=== PATIENT | male | born 1940 | race Caucasian/White ===

== ENCOUNTER 2017-08-30 17:20 | Emergency (ER) | payer MEDICARE, BC, OTHER ==
[2017-08-30] MEDS ORDERED: Sodium Chloride 0.9% 10 ML Syringe FLUSH PRN (17:29)
[2017-08-30] MEDS ORDERED: Sodium Chloride 0.9% 2.5 ML Syringe FLUSH PRN (17:29)
[2017-08-30] MEDS ORDERED: Morphine 2 MG/ML Syringe IVPUSH ONE (17:32)
[2017-08-30] MEDS ORDERED: Sodium Chloride 0.9% 1,000 ML IV ONE (17:32)
[2017-08-30] MEDS ORDERED: Ondansetron 4 MG/2 ML SDV IVPUSH ONE (17:32)
--- NOTE | 2017-08-30 17:33 | EDM.PDOC ---
ED HPI GENERAL MEDICAL PROBLEM - General Chief Complaint: Lower Extremity Injury/Pain Stated Complaint: UNK Time Seen by Provider: 08/30/17 17:33 Source of Information: Reports: Patient, EMS, EMS Notes Reviewed History Limitations: Reports: No Limitations - History of Present Illness INITIAL COMMENTS - FREE TEXT/NARRATIVE: HISTORY AND PHYSICAL: [] 76-year-old male presents with EMS due to a fall from a ladder History of Present Illness: []Patient remembers being upon the latter does not know if he slipped or if he got dizzy and ended up falling hit onto his left hip. He does relate having previous injury to his right hip with fracture and fixation He had cardiac stents placed and is on Plavix At this time denies hitting his head Denies any illnesses or other points of injury Review of Systems: As per history of present illness and below otherwise all systems reviewed and negative. Past medical history: As per history of present illness and as reviewed below otherwise noncontributory. Surgical history: As per history of present illness and as reviewed below otherwise noncontributory. Social history: No reported history of drug or alcohol abuse. Family history: As per history of present illness and as reviewed below otherwise noncontributory. Physical exam: Alert and oriented gentleman answering questions appropriately. Speaking in full sentences without any shortness of breath. HEENT: Atraumatic, normocehpalic, pupils reactive, negative for conjunctival pallor or scleral icterus, mucous membranes moist, throat clear, neck supple, nontender, trachea midline. Lungs: Clear to auscultation, breath sounds equal bilaterally, chest non tender. Heart: S1S2, regular, negative for clicks, rubs, or JVD. Abdomen: Soft, nondistended, nontender. Negative for masses or hepatossplenmegaly. Negative for costovertebral tenderness. Pelvis: Exquisite tenderness to left hip. Genitourinary: Deferred. Rectal: Deferred Extremities: Atraumatic, negative for cords or calf pain. Ecchymosis noted to left elbow range of motion is present radial pulse intact deformities present Neurovascular unremarkable. Neuro: Awake, alert, oriented. Cranial nerves II through XII unremarkable. Cerebellum unremarkable. Motor and sensory unremarkable throughout. Exam nonfocal. Head CT is negative no loss of consciousness during questions appropriately and in full sentences Discussed case with the family the patient and with Dr. Cullen. Surgeon from [facility] in [facility] he has accepted this patient for care. Transfer papers have been completed Diagnostics: [CBC CMP INR PT head CT CT pelvis x-ray left hip] Therapeutics: Morphine Dilaudid Zofran] Impression: []Acetabular fracture Area ramus fracture Plan: [Transfer to [facility] in [place]] Definitive disposition and diagnosis as appropriate pending reevaluation and review of above. Onset: Today, Sudden Duration: Hour(s): Location: Reports: Lower Extremity, Left Quality: Reports: Throbbing Severity: Moderate Left Hip Pain Score (Numeric/FACES): 10 - Related Data Allergies Allergy/AdvReac Type Severity Reaction Status Date / Time No Known Allergies Allergy Verified 11/16/14 14:26 Home Meds: Home Meds Aclidinium [place] [Tudorza Pressair] 1 inh IH ASDIRECTED PRN 08/30/17 [History] Aspirin 81 mg PO BRK 08/30/17 [History] Clopidogrel Bisulfate [Clopidogrel] 1 tab PO DAILY 08/30/17 [History] Hydrocodone/Acetaminophen [Hydrocodon-Acetaminophen 5-325] 1 tab PO ASDIRECTED PRN 08/30/17 [History] Lisinopril [Lisinopril] 1 tab PO DAILY 08/30/17 [History] Metoprolol Tartrate [Metoprolol Tartrate] 1 tab PO DAILY 08/30/17 [History] atorvaSTATin Calcium [Atorvastatin Calcium] 1 tab PO DAILY 08/30/17 [History] Past Medical History Cardiovascular History: Reports: Hypertension Respiratory History: Reports: COPD Hematologic History: Reports: Other (See Below) Other Hematologic History: Easy bruising/bleeding - Past Surgical History Musculoskeletal Surgical History: Reports: Other (See Below) Review of Systems - Review of Systems Review Of Systems: ROS reveals no pertinent complaints other than HPI. ED EXAM, GENERAL - Physical Exam Exam: See Below (see dictation) EKG INTERPRETATION EKG Date: 08/30/17 Rhythm: NSR Course - Vital Signs Last Recorded V/S: Last Vital Signs Temp 36.4 C 08/30/17 20:30 Pulse 88 08/30/17 21:21 Resp 18 08/30/17 21:21 BP 118/70 08/30/17 21:21 Pulse Ox 97 08/30/17 21:21 - Orders/Labs/Meds Orders: Active Orders 24 hr Category Date Time Status Cardiac Monitoring [RC] . DIRECTED Care 08/30/17 17:29 Active EKG Documentation Completion [RC] STAT Care 08/30/17 17:29 Active Oxygen Therapy [RC] ASDIRECTED Care 08/30/17 17:29 Active Chest 1V Frontal [CR] Stat Exams 08/30/17 17:29 Taken Head wo Cont [CT] Stat Exams 08/30/17 17:31 Taken Hip Min 4V Lt [CR] Stat Exams 08/30/17 17:31 Taken Pelvis w Cont [CT] Stat Exams 08/30/17 18:56 Stop Req Pelvis wo Cont [CT] Stat Exams 08/30/17 19:04 Taken Sodium Chloride 0.9% [Saline Flush] Med 08/30/17 17:29 Active 10 ml FLUSH ASDIRECTED PRN Sodium Chloride 0.9% [Saline Flush] Med 08/30/17 17:29 Active 2.5 ml FLUSH ASDIRECTED PRN Saline Lock Insert [OM.PC] Stat Oth 08/30/17 17:29 Ordered Medication Orders Sodium Chloride (Saline Flush) 10 ml FLUSH ASDIRECTED PRN PRN Reason: Keep Vein Open Sodium Chloride (Saline Flush) 2.5 ml FLUSH ASDIRECTED PRN PRN Reason: Keep Vein Open Labs: Laboratory Tests 08/30/17 08/30/17 08/30/17 Range/Units 17:43 17:43 17:43 WBC 20.11 H (4.0-11.0) K/uL RBC 4.39 L (4.50-5.90) M/uL Hgb 13.7 (13.0-17.0) g/dL Hct 40.0 (38.0-50.0) % MCV 91.1 (80.0-98.0) fL MCH 31.2 (27.0-32.0) pg MCHC 34.3 (31.0-37.0) g/dL RDW Std Deviation 46.4 (28.0-62.0) fl RDW Coeff of Kavitha 14 (11.0-15.0) % Plt Count 274 (150-400) K/uL MPV 9.10 (7.40-12.00) fL Neut % (Auto) 84.7 H (48.0-80.0) % Lymph % (Auto) 8.3 L (16.0-40.0) % Morgan % (Auto) 5.1 (0.0-15.0) % Eos % (Auto) 1.5 (0.0-7.0) % Baso % (Auto) 0.4 (0.0-1.5) % Neut # (Auto) 17.0 H (1.4-5.7) K/uL Lymph # (Auto) 1.7 (0.6-2.4) K/uL Morgan # (Auto) 1.0 H (0.0-0.8) K/uL Eos # (Auto) 0.3 (0.0-0.7) K/uL Baso # (Auto) 0.1 (0.0-0.1) K/uL Nucleated RBC % 0.0 /100WBC Nucleated RBCs # 0 K/uL INR 1.04 (0.86-1.11) Sodium 135 L (136-146) mmol/L Potassium 4.0 (3.5-5.1) mmol/L Chloride 102 (98-110) mmol/L Carbon Dioxide 23 (21-31) mmol/L BUN 23 (6.0-23.0) mg/dL Creatinine 1.0 (0.6-1.5) mg/dL Est Cr Clr Drug Dosing 72.13 mL/min Estimated GFR (MDRD) > 60.0 ml/min Glucose 116 H (60-110) mg/dL Calcium 8.7 L (8.8-10.8) mg/dL Total Bilirubin 0.4 (0.1-1.5) mg/dL AST 21 (5-40) IU/L ALT 25 (8-54) IU/L Alkaline Phosphatase 71 (40-150) Troponin I < 0.10 (0.0-0.29) NG/ML Total Protein 7.2 (6.0-8.0) g/dL Albumin 3.8 (3.4-4.8) g/dL Globulin 3.4 (2.0-3.5) g/dL Albumin/Globulin Ratio 1.1 L (1.3-2.8) Amylase 49 (10-90) U/L Lipase 16 (7-80) U/L Meds: Medications Generic Name Dose Route Start Last Admin Trade Name Freq PRN Reason Stop Dose Admin Sodium Chloride 10 ml 08/30/17 17:29 Saline Flush FLUSH ASDIRECTED PRN Keep Vein Open Sodium Chloride 2.5 ml 08/30/17 17:29 Saline Flush FLUSH ASDIRECTED PRN Keep Vein Open Discontinued Medications Generic Name Dose Route Start Last Admin Trade Name [place]ion PRN Reason Stop Dose Admin Fentanyl Confirm 08/30/17 18:10 08/30/17 18:36 Sublimaze Administered 08/30/17 18:11 Not Given Dose 100 mcg .ROUTE .STK-MED ONE Fentanyl 50 mcg 08/30/17 18:23 08/30/17 18:37 Sublimaze IVPUSH 08/30/17 18:24 50 mcg ONETIME ONE Administration Hydromorphone HCl 1 mg 08/30/17 19:38 08/30/17 19:44 Dilaudid IVPUSH 08/30/17 19:39 1 mg ONETIME ONE Administration Hydromorphone HCl 1 mg 08/30/17 20:58 08/30/17 21:18 Dilaudid IVPUSH 08/30/17 20:59 1 mg ONETIME ONE Administration Sodium Chloride 1,000 mls @ 999 mls/hr 08/30/17 17:32 08/30/17 17:51 Normal Saline IV 08/30/17 18:32 999 mls/hr STAT ONE Administration Morphine Sulfate 2 mg 08/30/17 17:32 08/30/17 18:00 Morphine IVPUSH 08/30/17 17:33 Not Given ONETIME ONE Morphine Sulfate 4 mg 08/30/17 17:37 08/30/17 17:48 Morphine IVPUSH 08/30/17 17:38 4 mg ONETIME ONE Administration Ondansetron HCl 4 mg 08/30/17 17:32 08/30/17 17:48 Zofran IVPUSH 08/30/17 17:33 4 mg ONETIME ONE Administration Departure - Departure Time of Disposition: 21:27 Disposition: DC/Tfer to Acute Hospital 02 Condition: Fair Clinical Impression: Closed fracture of acetabulum, hip - Discharge Information Forms: ED Department Discharge - My Orders Last 24 Hours: My Active Orders 08/30/17 17:29 Cardiac Monitoring [RC] . DIRECTED EKG Documentation Completion [RC] STAT Oxygen Therapy [RC] ASDIRECTED Chest 1V Frontal [CR] Stat Sodium Chloride 0.9% [Saline Flush] 10 ml FLUSH ASDIRECTED PRN Sodium Chloride 0.9% [Saline Flush] 2.5 ml FLUSH ASDIRECTED PRN Saline Lock Insert [OM.PC] Stat 08/30/17 17:31 Head wo Cont [CT] Stat Hip Min 4V Lt [CR] Stat 08/30/17 18:56 Pelvis w Cont [CT] Stat 08/30/17 19:04 Pelvis wo Cont [CT] Stat - Assessment/Plan Last 24 Hours: My Active Orders 08/30/17 17:29 Cardiac Monitoring [RC] . DIRECTED EKG Documentation Completion [RC] STAT Oxygen Therapy [RC] ASDIRECTED Chest 1V Frontal [CR] Stat Sodium Chloride 0.9% [Saline Flush] 10 ml FLUSH ASDIRECTED PRN Sodium Chloride 0.9% [Saline Flush] 2.5 ml FLUSH ASDIRECTED PRN Saline Lock Insert [OM.PC] Stat 08/30/17 17:31 Head wo Cont [CT] Stat Hip Min 4V Lt [CR] Stat 08/30/17 18:56 Pelvis w Cont [CT] Stat 08/30/17 19:04 Pelvis wo Cont [CT] Stat
[2017-08-30] MEDS ORDERED: Morphine 4 MG/ML Syringe IVPUSH ONE (17:37)
[2017-08-30] MEDS ORDERED: fentaNYL 100 MCG/2 ML SDV ONE (18:10)
[2017-08-30 18:21] LABS: CHLORIDE,CL 102 mmol/L (98-110); SODIUM,NA 135 mmol/L (136-146)
[2017-08-30] MEDS ORDERED: fentaNYL 100 MCG/2 ML SDV IVPUSH ONE (18:23)
[2017-08-30] MEDS ORDERED: HYDROmorphone 1 MG/ML Syringe IVPUSH ONE ×2 (19:38→20:58)
[2017-08-30 22:32] VITALS: BP 125/63
--- NOTE | 2017-09-02 14:17 | CR ---
EXAM DATE: 08/30/17 PATIENT'S AGE: 76 Patient: NUZHAT CASILLAS Facility: [place], [place] Site . Site : 1940 Study: XRay Chest [id number] 7:07:16 PM Ordering Physician: Doctor Munoz Final Report: Fall off 3ft ladder Portable chest. Findings : Normal cardiac mediastinal silhouette. Strandy atelectasis. No pneumothorax. No fractures seen. Dictated by Lauren Owen MD @ Aug 30 2017 8:02PM (Electronic Signature) Report Signed by Proxy. NKECHI
--- NOTE | 2017-09-02 14:18 | CR ---
EXAM DATE: 08/30/17 PATIENT'S AGE: 76 Patient: NUZHAT CASILLAS Facility: [place], [place] Site . Site : 1940 Study: XRay Hip Left [id number] 7:08:17 PM Ordering Physician: Doctor Munoz Final Report: INDICATION: fall off 3ft ladder INDICATION: Fall 3 foot ladder TECHNIQUE: Four views of the pelvis and left hip COMPARISON: None FINDINGS: Bones: Displaced fracture involving the wall of the left acetabulum with medial displacement of the left femoral head. CT scan recommended to further characterize. Fracture left inferior pubic ramus. Internal fixation or proximal right femur. Soft tissues: Bilateral iliac vascular stents. IMPRESSION: Displaced fracture medial left acetabulum with displacement of the femoral head medially. Left inferior pubic ramus fracture. CT scan recommended to better characterize. Dictated by Jamie Santiago MD @ 08/30/2017 8:13:00 PM Dictated by: Jamie Santiago MD @ 08/30/2017 20:14:16 (Electronic Signature) Report Signed by Proxy. [facility]
--- NOTE | 2017-09-02 14:19 | CT ---
EXAM DATE: 08/30/17 PATIENT'S AGE: 76 Patient: NUZHAT CASILLAS Facility: [place], [place] Site . Site : 1940 Study: CT Head [id number] 7:19:51 PM Ordering Physician: Doctor Munoz Final Report: INDICATION: Fall from ladder. TECHNIQUE: Noncontrast CT of the brain was performed with images acquired from skull base to vertex. COMPARISON: None available. FINDINGS: There is no acute intracranial hemorrhage. Ventricles are of normal size and morphology. No mass effect or midline shift is present. The márquez-white matter differentiation is normal. The visualized portions of the orbits are normal. The visualized portions of the mastoids are normal. The visualized portions of the paranasal sinuses are normal. No fractures are identified. IMPRESSION: No acute intracranial abnormality Please note that all CT scans at this facility use dose modulation, iterative reconstruction, and/or weight-based dosing when appropriate to reduce radiation dose to as low as reasonably achievable. Dictated by Esteban Regan MD @ Aug 30 2017 8:18PM (Electronic Signature) Report Signed by Proxy. [facility]
--- NOTE | 2017-09-02 14:21 | CT ---
EXAM DATE: 08/30/17 PATIENT'S AGE: 76 Patient: NUZHAT CASILLAS Facility: [place], [place] Site . Site : 1940 Study: CT Pelvis [id number]/[id number]/2017 7:21:09 PM Ordering Physician: Doctor Munoz Final Report: Indication: Trauma, acute left hip pain Technique: CT scan pelvis without intravenous contrast Comparison: None Findings: Fracture of the anterior column involving the superior pubic ramus at the junction with the acetabulum. Fractures involving the left iliac crest. Comminuted fracture involving the roof and medial wall of the acetabulum with displacement of the left femoral head medially. Fractures involving the left inferior pubic ramus. A sizeable hematoma is noted involving the left iliacus muscle belly, left psoas muscle and left obturator internus and externus muscle bellies with displacement of the bladder to the right. Extraperitoneal hematoma present in the space of Retzius. Comminuted displaced fracture of the posterior acetabulum. The SI joints and symphysis pubis are intact. The right hip joint is intact. Internal fixation hardware noted involving the right proximal femur. Small presacral hematoma. Iliac artery vascular stents noted. Impression: Comminuted fracture involving the left anterior column including comminuted displaced fractures of the left superior pubic ramus adjacent to the anterior and medial carroll of the left acetabulum as well as the roof and left inferior pubic ramus. Fracture extends into the left iliac crest. The left femoral head is displaced medially. Comminuted displaced fracture of the posterior acetabulum extending to the articular surface. Small adjacent posterior hematoma noted. Hematomas involving the left iliacus, psoas and left obturator internus and externus muscle bellies. Displacement of the bladder to the right. The bladder appears intact, however if bladder rupture is clinically suspected, then cystogram or CT cystogram recommended. If active bleeding is clinically suspected, then CT scan with intravenous contrast with arterial, venous and delayed phases recommended. Space of Retzius hematoma and small presacral hematoma. Dictated by Jamie Santiago MD @ 08/30/2017 8:48:10 PM Dictated by: Jamie Santiago MD @ 08/30/2017 20:48:27 (Electronic Signature) Report Signed by Proxy. MTDD
== END 2017-08-30 21:50 ==
LOC: MW.ED 17:20
DX: S32.592A Other specified fracture of left pubis, initial encounter for closed fracture (principal); S32.402A Unspecified fracture of left acetabulum, initial encounter for closed fracture; S72.052A Unspecified fracture of head of left femur, initial encounter for closed fracture; S32.302A Unspecified fracture of left ilium, initial encounter for closed fracture; Z79.899 Other long term (current) drug therapy; I10 Essential (primary) hypertension; J44.9 Chronic obstructive pulmonary disease, unspecified; W11.XXXA Fall on and from ladder, initial encounter
CPT/HCPCS: 36415; 70450; 71010; 72192; 73503; 80053; 82150; 83690; 84484; 85025; 85610; 93005; 96361; 96374; 96375; 96376; 99285; J1170; J2270; J2405; J3010; J7040; 99283

== ENCOUNTER 2020-08-07 00:05 | Inpatient (IN) | payer MEDICARE, BC ==
[2020-08-07] MEDS ORDERED: Morphine 4 MG/ML Syringe ONE (00:11)
[2020-08-07] MEDS ORDERED: Morphine 4 MG/ML Syringe IVPUSH ONE ×3 (00:11→01:57)
[2020-08-07] MEDS ORDERED: Ondansetron 4 MG/2 ML SDV IVPUSH ONE (00:15)
--- NOTE | 2020-08-07 00:16 | EDM.PDOC ---
ED HPI GENERAL MEDICAL PROBLEM - General Stated Complaint: FALL Time Seen by Provider: 08/07/20 00:08 History Limitations: Reports: No Limitations - History of Present Illness INITIAL COMMENTS - FREE TEXT/NARRATIVE: 79-year-old male on Plavix who had left hip surgery at the [facility] on July 09 presents with nausea and left hip pain after falling out of bed. The patient reports that he woke up and felt incredibly dizzy and the next thing he know he was on the ground. He reports significant nausea but denies headache or neck pain he denies back pain he endorses moderate pain in the left hip. He states that there was not any open wound associated with his hip that he was aware of prior to the fall. He denies pain in the abdomen. He denies active vertigo. He denies any chest pain shortness of breath palpitations. Left Hip Pain Score (Numeric/FACES): 8 - Related Data Allergies Allergy/AdvReac Type Severity Reaction Status Date / Time No Known Allergies Allergy Verified 08/07/20 01:23 Home Meds: Home Meds Aspirin 81 mg PO BRK 08/30/17 [History] Clopidogrel Bisulfate [Clopidogrel] 1 tab PO DAILY 08/30/17 [History] Lisinopril 1 tab PO DAILY 08/30/17 [History] Metoprolol Tartrate 1 tab PO DAILY 08/30/17 [History] atorvaSTATin Calcium [Atorvastatin Calcium] 1 tab PO DAILY 08/30/17 [History] Furosemide 08/07/20 [History] oxyCODONE HCl [Oxycodone HCl] 08/07/20 [History] Past Medical History HEENT History: Reports: Allergic Rhinitis Cardiovascular History: Reports: Hypertension Respiratory History: Reports: COPD Gastrointestinal History: Reports: None Genitourinary History: Reports: None Musculoskeletal History: Reports: None Neurological History: Reports: None Psychiatric History: Reports: None Endocrine/Metabolic History: Reports: None Hematologic History: Reports: Other (See Below) Other Hematologic History: Easy bruising/bleeding Immunologic History: Reports: None Oncologic (Cancer) History: Reports: None Dermatologic History: Reports: None - Infectious Disease History Infectious Disease History: Reports: Chicken Pox - Past Surgical History Other Musculoskeletal Surgeries/Procedures:: Back surgery Social & Family History - Family History Family Medical History: No Pertinent Family History - Caffeine Use Caffeine Use: Reports: Coffee ED ROS GENERAL - Review of Systems Review Of Systems: See Below Free Text/Narrative/Comment: General: No fever. Skin: No rash. Eyes: No vision problems. ENT: No sore throat. Neck: No neck stiffness. Respiratory: No shortness of breath. Cardiac: No chest pain. Gastrointestinal: Per HPI Urinary: No dysuria. Musculoskeletal: Per HPI Neurologic: Per HPI ED EXAM, GENERAL - Physical Exam Exam: See Below Free Text/Narrative:: General Appearance: No acute distress, appears comfortable Skin: No rash HEENT: Normocephalic/atraumatic, sclera anicteric, mucous membranes moist Neck: Normal range of motion, no midline tenderness Chest and Lungs: Bilateral breath sounds, clear to auscultation Cardiovascular: Regular rate and rhythm, no murmur Abdomen: Soft, non-tender Back: No midline tenderness no step-offs Musculoskeletal: The left hip lateral incision appears to be well-healed and clean dry and intact until you get to the most inferior 4 cm which has dehisced there is minimal blood clot visible under it there is no active bleeding Neurologic: Awake, alert, no obvious deficits, moving all extremities Psychiatric: Appropriate, cooperative #1 Interpretation EKG Date: 08/07/20 Time: 01:05 EKG Interpretation Comments: EKG demonstrates normal sinus rhythm with a rate of 86 QTC borderline at 490 no acute ischemia normal axis Course - Vital Signs Last Recorded V/S: Last Vital Signs Temp 99.3 F 08/07/20 00:05 Pulse 82 08/07/20 00:20 Resp 20 08/07/20 00:20 BP 153/72 H 08/07/20 00:20 Pulse Ox 97 08/07/20 00:20 - Orders/Labs/Meds Orders: Active Orders 24 hr Category Date Time Status CREATININE,URINE RAND [URCHEM] Stat Lab 08/07/20 01:09 Ordered SODIUM,URINE RANDOM [URCHEM] Stat Lab 08/07/20 01:09 Ordered UA W/MICROSCOPIC [URIN] Stat Lab 08/07/20 01:09 Ordered Labs: Laboratory Tests 08/07/20 08/07/20 Range/Units 00:08 00:08 WBC 7.05 (4.0-11.0) K/uL RBC 3.00 L (4.50-5.90) M/uL Hgb 9.3 L (13.0-17.0) g/dL Hct 25.7 L (38.0-50.0) % MCV 85.7 (80.0-98.0) fL MCH 31.0 (27.0-32.0) pg MCHC 36.2 (31.0-37.0) g/dL RDW Std Deviation 41.5 (28.0-62.0) fl RDW Coeff of Kavitha 14 (11.0-15.0) % Plt Count 285 (150-400) K/uL MPV 8.80 (7.40-12.00) fL Neut % (Auto) 79.1 (48.0-80.0) % Lymph % (Auto) 10.9 L (16.0-40.0) % [place]row % (Auto) 9.5 (0.0-15.0) % Eos % (Auto) 0.4 (0.0-7.0) % Baso % (Auto) 0.1 (0.0-1.5) % Neut # (Auto) 5.6 (1.4-5.7) K/uL Lymph # (Auto) 0.8 (0.6-2.4) K/uL [place]row # (Auto) 0.7 (0.0-0.8) K/uL Eos # (Auto) 0.0 (0.0-0.7) K/uL Baso # (Auto) 0.0 (0.0-0.1) K/uL Sodium 107 L* (136-148) mmol/L Potassium 3.8 (3.5-5.1) mmol/L Chloride 74 L (98-107) mmol/L Carbon Dioxide 24.7 (21.0-32.0) mmol/L BUN 11 (7.0-18.0) mg/dL Creatinine 1.0 (0.8-1.3) mg/dL Est Cr Clr Drug Dosing TNP Estimated GFR (MDRD) > 60.0 ml/min Glucose 103 (74-106) mg/dL Calcium 8.5 (8.5-10.1) mg/dL Total Bilirubin 0.9 (0.2-1.0) mg/dL AST 39 H (15-37) IU/L ALT 25 (14-63) IU/L Alkaline Phosphatase 137 H (46-116) U/L Troponin I < 0.050 (0.000-0.056) ng/mL Total Protein 6.9 (6.4-8.2) g/dL Albumin 3.3 L (3.4-5.0) g/dL Globulin 3.6 (2.6-4.0) g/dL Albumin/Globulin Ratio 0.9 (0.9-1.6) Meds: Medications Discontinued Medications Generic Name Dose Route Start Last Admin Trade Name Freq PRN Reason Stop Dose Admin Metoclopramide HCl 5 mg 08/07/20 00:56 08/07/20 01:01 Reglan IVPUSH 08/07/20 00:57 5 mg ONETIME ONE Administration Morphine Sulfate 4 mg 08/07/20 00:11 08/07/20 00:58 Morphine IVPUSH 08/07/20 00:12 4 mg ONETIME ONE Administration Morphine Sulfate Confirm 08/07/20 00:11 08/07/20 01:03 Morphine Administered 08/07/20 00:12 Not Given Dose 4 mg .ROUTE .STK-MED ONE Morphine Sulfate 4 mg 08/07/20 00:12 08/07/20 01:05 Morphine IVPUSH 08/07/20 00:13 4 mg ONETIME ONE Administration Ondansetron HCl 4 mg 08/07/20 00:15 08/07/20 00:58 Zofran IVPUSH 08/07/20 00:16 4 mg ONETIME ONE Administration Departure - Departure Time of Disposition: 01:43 Disposition: Admitted As Inpatient 66 Condition: Good Clinical Impression: Hyponatremia - Discharge Information *PRESCRIPTION DRUG MONITORING PROGRAM REVIEWED*: Not Applicable *COPY OF PRESCRIPTION DRUG MONITORING REPORT IN PATIENT SANDRA: Not Applicable Sepsis Event Note (ED) - Focused Exam Vital Signs: Vital Signs Temp Pulse Resp BP Pulse Ox 08/07/20 00:35 83 20 142/53 H 98 08/07/20 00:20 82 20 153/72 H 97 08/07/20 00:05 99.3 F 86 20 166/75 H 97 - My Orders Last 24 Hours: My Active Orders 08/07/20 01:09 CREATININE,URINE RAND [URCHEM] Stat SODIUM,URINE RANDOM [URCHEM] Stat UA W/MICROSCOPIC [URIN] Stat - Assessment/Plan Last 24 Hours: My Active Orders 08/07/20 01:09 CREATININE,URINE RAND [URCHEM] Stat SODIUM,URINE RANDOM [URCHEM] Stat UA W/MICROSCOPIC [URIN] Stat Assessment:: 79-year-old male presenting with falling out of bed after waking up dizzy from a traumatic standpoint he seems relatively unharmed with the exception of the left hip wound dehiscence x-rays pending and will try to discuss with relevant orthopedics. Regarding the dizziness CT scan of the brain is pending EKG troponin as well relevant blood work and will reassess patient given Zofran and morphine for symptom control. 0055: On tertiary survey patient also has some contusion around the right auricle he has a 5 mm V-shaped laceration just inside that is well approximated. Appropriate wound care provided. On repeat interview the patient states that that inferior portion of his incision has actually been open and has been healing slowly. Given this no indication for urgent or emergent orthopedic consultation no indication certainly for closure. The wound itself otherwise is clean dry and intact without signs of infection. Patient has no dizziness or other complaints at this time beyond left hip pain. Formal imaging results pending. 0145: Imaging results without signs of acute traumatic injury. Labs demonstrate a profound hyponatremia. Given this patient require admission patient discussed in full with Dr. Martini. Likely acute so we will treat more aggressively 1 L normal saline bolus ordered patient has no altered mental status at this time so we will manage on the floor for now order placed for inpatient bed on telemetry.
[2020-08-07] MEDS ORDERED: Metoclopramide 10 MG/2 ML SDV IVPUSH ONE (00:56)
[2020-08-07 01:05] LABS: BLOOD UREA NITROGEN,BUN 11 mg/dL (7.0-18.0); CARBON DIOXIDE,CO2 24.7 mmol/L (21.0-32.0); CHLORIDE,CL 74 mmol/L (98-107); GLUCOSE RANDOM 103 mg/dL (74-106); POTASSIUM,K 3.8 mmol/L (3.5-5.1)
[2020-08-07 01:07] LABS: SODIUM,NA 107 mmol/L (136-148)
--- NOTE | 2020-08-07 01:13 | CT ---
INDICATION: Fall from bed TECHNIQUE: CT head without contrast. COMPARISON: None. FINDINGS: CSF spaces: Within normal limits for age. Brain parenchyma: Cerebral atrophy with moderate low density in the deep white matter without appreciable mass effect. No intracranial hemorrhage. Skull base and calvarium: Mucosal thickening within the paranasal sinuses. The visualized orbits are grossly unremarkable. No skull fractures. IMPRESSION: 1. No calvarial fracture or intracranial bleed. 2. Cerebral atrophy with nonspecific white matter disease, likely microangiopathy. Please note that all CT scans at this facility use dose modulation, iterative reconstruction, and/or weight-based dosing when appropriate to reduce radiation dose to as low as reasonably achievable. Dictated by Nabor Jones MD @ Aug 07 2020 1:07AM Signed by Dr. Nabor Jones @ Aug 07 2020 1:11AM
--- NOTE | 2020-08-07 01:15 | CR ---
Indication: Fall out of bed Technique: Chest 1 view Comparison: Chest x-ray 08/30/2017 Findings/Impression: Cardiovascular and mediastinum: Normal heart size with atherosclerotic calcification. Lungs and pleural space: No pleural effusion or pneumothorax. Mild pulmonary cephalization with some bronchial wall thickening in the perihilar regions which can be seen in reactive airways disease or bronchitis. Bones and soft tissues: No acute findings. Dictated by Nabor Jones MD @ Aug 07 2020 1:14AM Signed by Dr. Nabor Jones @ Aug 07 2020 1:15AM
--- NOTE | 2020-08-07 01:15 | CR ---
Indication: Fall out of bed, left hip replacement earlier this month. Technique: Three views Comparison: None Findings: Bones: Old intertrochanteric fracture on the right with dynamic hip screw. Some cortical thickening along the medial wall of the acetabulum bilaterally without clear displaced fracture in these views. Joint spaces: Status post left total hip replacement with some ossification along the lateral margin of the joint space. No dislocation or hardware fracture. Soft tissues: Lateral soft tissue swelling with subcutaneous air. Dictated by Nabor Jones MD @ Aug 07 2020 1:12AM Signed by Dr. Nabor Jones @ Aug 07 2020 1:14AM
--- NOTE | 2020-08-07 01:17 | CR ---
Indication: Left forearm pain after fall Technique: Two views Comparison: None Findings: Bones: Alignment is normal. No fractures or bone lesions. Joint spaces: Unremarkable. Soft tissues: Mild soft tissue swelling. Dictated by Nabor Jones MD @ Aug 07 2020 1:15AM Signed by Dr. Nabor Jones @ Aug 07 2020 1:16AM
[2020-08-07] MEDS ORDERED: Sodium Chloride 0.9% 1,000 ML IV SCH ×2 (01:45→04:45)
[2020-08-07] MEDS ORDERED: Morphine 2 MG/ML SYRINGE ONE (02:03)
[2020-08-07] MEDS ORDERED: Ondansetron 4 MG/2 ML SDV IVPUSH PRN (04:35)
[2020-08-07 04:39] LABS: BLOOD UREA NITROGEN,BUN 12 mg/dL (7.0-18.0); CARBON DIOXIDE,CO2 23.2 mmol/L (21.0-32.0); CHLORIDE,CL 78 mmol/L (98-107); GLUCOSE RANDOM 104 mg/dL (74-106); POTASSIUM,K 3.5 mmol/L (3.5-5.1)
[2020-08-07 04:41] LABS: SODIUM,NA 110 mmol/L (136-148)
[2020-08-07] MEDS: Heparin Sodium 5,000 Units/ML Vial SUBCUT SCH ×2 (05:13→15:59)
--- NOTE | 2020-08-07 07:56 | PCM.HP.2 ---
H&P History of Present Illness - General Date of Service: 08/07/20 Admit Problem/Dx: Admission Diagnosis/Problem Admission Diagnosis/Problem Hyponatremia Source of Information: Patient History Limitations: Reports: No Limitations - History of Present Illness Initial Comments - Free Text/Narative: This 79-year-old male with PMH of hypertension CAD COPD and recent left hip wright rgery in beginning of July presented to the ER last evening with complaints of a fall nausea and extreme dizziness. He reports that he woke up in middle of the night and had significant dizziness the next thing he knew he was on the ground. He reports he may have hit his head. He does take Plavix and aspirin secondary to CAD. He reports that he has been feeling well up until this point. Eating and drinking well. No alcohol use. No nausea vomiting or diarrhea. No chest pain or shortness of breath. No fevers or chills. Denies any abdominal pain reports mild constipation which is not abnormal for him. Reports he has been taking oxycodone at home for pain to his hip since surgery. He denies any alcohol use no recreational drug use and no smoking. He denies any history of congestive heart failure. He also denies any history of significant electrolyte abnormalities in the past. In the ER hemoglobin noted to be 9.3 hematocrit 25.7 no leukocytosis. On BMP significant hyponatremia noted at 107, chloride 74, BUN 11, creatinine 1.0. Chest x-ray was negative head CT negative for any intracranial bleed. Hip x-ray showed no acute changes forearm x-ray showed mild swelling no obvious injuries. EKG normal sinus rhythm no acute ST/T wave changes no suggestions of acute isch emia. Troponin negative. Covid swab negative in the ER he was given 1 L normal saline. Vital signs were stable. He will be admitted inpatient due to hyponatremia. Left Hip Pain Score (Numeric/FACES): 7 - Related Data Allergies/Adverse Reactions: Allergies Allergy/AdvReac Type Severity Reaction Status Date / Time No Known Allergies Allergy Verified 08/07/20 09:49 Home Medications: Home Meds Aspirin 81 mg PO BRK 08/30/17 [History] Clopidogrel Bisulfate [Clopidogrel] 75 mg PO DAILY 08/30/17 [History] Lisinopril 10 mg PO DAILY 08/30/17 [History] Metoprolol Tartrate 25 mg PO BID 08/30/17 [History] atorvaSTATin Calcium [Atorvastatin Calcium] 40 mg PO DAILY 08/30/17 [History] Furosemide 40 mg PO DAILY PRN 08/07/20 [History] hydroCHLOROthiazide [Hydrochlorothiazide] 12.5 mg PO DAILY 08/07/20 [History] oxyCODONE HCl [Oxycodone HCl] 10 mg PO QID PRN 08/07/20 [History] Past Medical History HEENT History: Reports: Allergic Rhinitis Cardiovascular History: Reports: CAD, Hypertension Respiratory History: Reports: COPD Gastrointestinal History: Reports: None Genitourinary History: Reports: None Musculoskeletal History: Reports: None Neurological History: Reports: None Psychiatric History: Reports: None Endocrine/Metabolic History: Reports: None Hematologic History: Reports: Other (See Below) Other Hematologic History: Easy bruising/bleeding Immunologic History: Reports: None Oncologic (Cancer) History: Reports: None Dermatologic History: Reports: None - Infectious Disease History Infectious Disease History: Reports: Chicken Pox - Past Surgical History HEENT Surgical History: Reports: None Neurological Surgical History: Reports: Laminectomy Musculoskeletal Surgical History: Reports: Other (See Below) Other Musculoskeletal Surgeries/Procedures:: Back surgery, both hips replaced, left hip 07/09/20 Social & Family History - Family History Family Medical History: No Pertinent Family History - Tobacco Use Tobacco Use Status *Q: Never Tobacco User - Caffeine Use Caffeine Use: Reports: Coffee - Recreational Drug Use Recreational Drug Use: No H&P Review of Systems - Review of Systems: Review Of Systems: See Below General: Reports: Malaise, Weakness, Fatigue. Denies: Fever, Chills HEENT: Reports: Vertigo. Denies: Headaches, Sinus Congestion, Visual Changes Pulmonary: Denies: Shortness of Breath Cardiovascular: Reports: No Symptoms. Denies: Chest Pain, Orthopnea, Edema Gastrointestinal: Reports: No Symptoms. Denies: Abdominal Pain, Decreased Appetite, Nausea, Vomiting Genitourinary: Reports: No Symptoms. Denies: Dysuria, Frequency, Burning Musculoskeletal: Reports: Muscle Pain (Bilateral lower legs) Skin: Reports: Wound (Draining wound to left hip) Psychiatric: Reports: No Symptoms Neurological: Reports: Confusion Hematologic/Lymphatic: Reports: No Symptoms Immunologic: Reports: No Symptoms Exam - Exam Exam: See Below - Vital Signs Vital Signs: Last Vital Signs Temp 97.6 F 08/07/20 03:47 Pulse 84 08/07/20 03:47 Resp 18 08/07/20 03:47 BP 153/63 H 08/07/20 03:47 Pulse Ox 95 08/07/20 03:47 Weight: 81.647 kg - Exam Quality Assessment: Urinary Catheter (Will place Savage catheter for strict I's and O's), DVT Prophylaxis. No: Supplemental Oxygen General: Other (Mild intermittent confusion noted) HEENT: Conjunctiva Clear Lungs: Clear to Auscultation, Normal Respiratory Effort Cardiovascular: Regular Rate, Regular Rhythm GI/Abdominal Exam: Normal Bowel Sounds, Soft, Non-Tender Extremities: Normal Inspection, Normal Range of Motion, Non-Tender, Pedal Edema (+2 pitting edema bilateral lower legs) Skin: Wound (Left hip wound dehiscence noted to the distal end of incision. Bloody drainage noted), Other (Bruising to right ear no significant pain no bloody drainage.) Neuro Extensive - Mental Status: Alert, Oriented x3. No: Normal Mood/Affect (Confusion intermittently) Neuro Extensive - Motor, Sensory, Reflexes: CN II-XII Intact, Normal Gait Psychiatric: Alert, Normal Affect, Normal Mood - Patient Data Lab Results Last 24 hrs: Laboratory Results - last 24 hr 08/07/20 08/07/20 08/07/20 Range/Units 00:08 00:08 01:15 WBC 7.05 (4.0-11.0) K/uL RBC 3.00 L (4.50-5.90) M/uL Hgb 9.3 L (13.0-17.0) g/dL Hct 25.7 L (38.0-50.0) % MCV 85.7 (80.0-98.0) fL MCH 31.0 (27.0-32.0) pg MCHC 36.2 (31.0-37.0) g/dL RDW Std Deviation 41.5 (28.0-62.0) fl RDW Coeff of Kavitha 14 (11.0-15.0) % Plt Count 285 (150-400) K/uL MPV 8.80 (7.40-12.00) fL Neut % (Auto) 79.1 (48.0-80.0) % Lymph % (Auto) 10.9 L (16.0-40.0) % [place] % (Auto) 9.5 (0.0-15.0) % Eos % (Auto) 0.4 (0.0-7.0) % Baso % (Auto) 0.1 (0.0-1.5) % Neut # (Auto) 5.6 (1.4-5.7) K/uL Lymph # (Auto) 0.8 (0.6-2.4) K/uL [place] # (Auto) 0.7 (0.0-0.8) K/uL Eos # (Auto) 0.0 (0.0-0.7) K/uL Baso # (Auto) 0.0 (0.0-0.1) K/uL Sodium 107 L* (136-148) mmol/L Potassium 3.8 (3.5-5.1) mmol/L Chloride 74 L (98-107) mmol/L Carbon Dioxide 24.7 (21.0-32.0) mmol/L BUN 11 (7.0-18.0) mg/dL Creatinine 1.0 (0.8-1.3) mg/dL Est Cr Clr Drug Dosing TNP Estimated GFR (MDRD) > 60.0 ml/min Glucose 103 (74-106) mg/dL Calcium 8.5 (8.5-10.1) mg/dL Total Bilirubin 0.9 (0.2-1.0) mg/dL AST 39 H (15-37) IU/L ALT 25 (14-63) IU/L Alkaline Phosphatase 137 H (46-116) U/L Troponin I < 0.050 (0.000-0.056) ng/mL Total Protein 6.9 (6.4-8.2) g/dL Albumin 3.3 L (3.4-5.0) g/dL Globulin 3.6 (2.6-4.0) g/dL Albumin/Globulin Ratio 0.9 (0.9-1.6) SARS-CoV-2 RNA (KARIS) NEGATIVE (NEGATIVE) 08/07/20 Range/Units 04:20 WBC (4.0-11.0) K/uL RBC (4.50-5.90) M/uL Hgb (13.0-17.0) g/dL Hct (38.0-50.0) % MCV (80.0-98.0) fL MCH (27.0-32.0) pg MCHC (31.0-37.0) g/dL RDW Std Deviation (28.0-62.0) fl RDW Coeff of Kavitha (11.0-15.0) % Plt Count (150-400) K/uL MPV (7.40-12.00) fL Neut % (Auto) (48.0-80.0) % Lymph % (Auto) (16.0-40.0) % [place] % (Auto) (0.0-15.0) % Eos % (Auto) (0.0-7.0) % Baso % (Auto) (0.0-1.5) % Neut # (Auto) (1.4-5.7) K/uL Lymph # (Auto) (0.6-2.4) K/uL [place] # (Auto) (0.0-0.8) K/uL Eos # (Auto) (0.0-0.7) K/uL Baso # (Auto) (0.0-0.1) K/uL Sodium 110 L* (136-148) mmol/L Potassium 3.5 (3.5-5.1) mmol/L Chloride 78 L (98-107) mmol/L Carbon Dioxide 23.2 (21.0-32.0) mmol/L BUN 12 (7.0-18.0) mg/dL Creatinine 1.0 (0.8-1.3) mg/dL Est Cr Clr Drug Dosing 68.80 Estimated GFR (MDRD) > 60.0 ml/min Glucose 104 (74-106) mg/dL Calcium 8.0 L (8.5-10.1) mg/dL Total Bilirubin (0.2-1.0) mg/dL AST (15-37) IU/L ALT (14-63) IU/L Alkaline Phosphatase (46-116) U/L Troponin I (0.000-0.056) ng/mL Total Protein (6.4-8.2) g/dL Albumin (3.4-5.0) g/dL Globulin (2.6-4.0) g/dL Albumin/Globulin Ratio (0.9-1.6) SARS-CoV-2 RNA (KARIS) (NEGATIVE) Result Diagrams: 08/07/20 00:08 08/07/20 12:45 Sepsis Event Note - Evaluation Sepsis Screening Result: No Definite Risk - Focused Exam Vital Signs: Vital Signs Temp Pulse Resp BP Pulse Ox 08/07/20 03:47 97.6 F 84 18 153/63 H 95 08/07/20 03:40 97.8 F 80 18 134/74 94 L 08/07/20 03:00 96 132/48 L 94 L 08/07/20 02:30 97 18 152/59 H 92 L 08/07/20 02:00 91 104/41 L 95 08/07/20 01:45 18 153/76 H 95 08/07/20 01:20 86 151/71 H 93 L 08/07/20 00:50 99.2 F 86 18 141/70 H 95 08/07/20 00:35 83 20 142/53 H 98 08/07/20 00:20 82 20 153/72 H 97 08/07/20 00:05 99.3 F 86 20 166/75 H 97 - Problem List (1) Hyponatremia SNOMED Code(s): 29541823 ICD Code: E87.1 - HYPO-OSMOLALITY AND HYPONATREMIA Status: Acute Current Visit: Yes (2) Hypertension SNOMED Code(s): 10719994 ICD Code: I10 - ESSENTIAL (PRIMARY) HYPERTENSION Status: Acute Current Visit: Yes (3) COPD (chronic obstructive pulmonary disease) SNOMED Code(s): 03878405 ICD Code: J44.9 - CHRONIC OBSTRUCTIVE PULMONARY DISEASE, UNSPECIFIED Status: Acute Current Visit: Yes (4) Fall SNOMED Code(s): 9197665, 013544576 ICD Code: W19.XXXA - UNSPECIFIED FALL, INITIAL ENCOUNTER Status: Acute Current Visit: Yes (5) Dizziness SNOMED Code(s): 671475936, 228807640 ICD Code: R42 - DIZZINESS AND GIDDINESS Status: Acute Current Visit: Yes (6) Wound dehiscence, surgical SNOMED Code(s): 889011307 ICD Code: T81.31XA - DISRUPTION OF EXTERNAL OPERATION (SURGICAL) WOUND, NEC, INIT Status: Acute Current Visit: Yes Qualifiers: Encounter type: initial encounter Qualified Code(s): T81.31XA - Disruption of external operation (surgical) wound, not elsewhere classified, initial encounter Problem List Initiated/Reviewed/Updated: Yes Orders Last 24hrs: Active Orders 24 hr Category Date Time Status Patient Status [ADT] Routine ADT 08/07/20 02:06 Active Neuro Check [RC] Q2HR Care 08/07/20 04:16 Active Oxygen Therapy [RC] ASDIRECTED Care 08/07/20 04:16 Active Telemetry Monitoring [Cardiac Monitoring] [RC] Q8H Care 08/07/20 02:40 Active Up With Assistance [RC] ASDIRECTED Care 08/07/20 04:16 Active Vital Signs [RC] Q4H Care 08/07/20 04:16 Active Regular Diet [DIET] Diet 08/07/20 Breakfast Active BASIC METABOLIC PANEL,BMP [CHEM] Routine Lab 08/07/20 08:30 Ordered BASIC METABOLIC PANEL,BMP [CHEM] Routine Lab 08/07/20 12:30 Ordered CREATININE,URINE RAND [URCHEM] Stat Lab 08/07/20 01:09 Ordered SODIUM,URINE RANDOM [URCHEM] Stat Lab 08/07/20 01:09 Ordered UA W/MICROSCOPIC [URIN] Stat Lab 08/07/20 01:09 Ordered Heparin Sodium Med 08/07/20 04:45 Active 5,000 units SUBCUT Q12H Ondansetron [Zofran] Med 08/07/20 04:35 Active 4 mg IVPUSH Q4H PRN Sodium Chloride 0.9% [Normal Saline] 1,000 ml Med 08/07/20 01:45 Active IV ASDIRECTED Sodium Chloride 0.9% [Normal Saline] 1,000 ml Med 08/07/20 04:45 Active IV ASDIRECTED Medication Orders Heparin Sodium (Porcine) (Heparin Sodium) 5,000 units SUBCUT Q12H [facility] Last Admin: 08/07/20 05:13 Dose: 5,000 units Documented by: AMIRA Sodium Chloride (Normal Saline) 1,000 mls @ 999 mls/hr IV ASDIRECTED SARAH Last Admin: 08/07/20 02:07 Dose: 999 mls/hr Documented by: JAMESON Sodium Chloride (Normal Saline) 1,000 mls @ 150 mls/hr IV ASDIRECTED SARAH Last Admin: 08/07/20 05:13 Dose: 150 mls/hr Documented by: AMIRA Ondansetron HCl (Zofran) 4 mg IVPUSH Q4H PRN PRN Reason: Nausea/Vomiting Last Admin: 08/07/20 05:13 Dose: 4 mg Documented by: AMIRA Assessment/Plan Comment:: This 79-year-old male admitted with significant hyponatremia 1. Hyponatremia -Repeat sodium this morning 110. -Urine electrolytes still pending, will place Savage to obtain these and strict I's and O's -Concern for peripheral edema suggestive of possible CHF.-We will stop IV fluids now. Give Lasix 40 mg IV. -Transfer to ICU for closer monitoring -Continue to repeat BMPs every 4 hours until sodium stable -Goal of correction to be 113 in the next 24 hours -Appreciate eICU's monitoring and recommendations 2. left hip wound dehiscence -We will consult orthopedics due to distal part of incision opening with some bloody drainage. 3. Peripheral edema -History of CAD no current echo on chart. -We will obtain echo -BNP elevated -Strict I's and O's, daily weight, fluid restriction 1800 mls low-sodium diet 4. HTN/CAD -Continue lisinopril and metoprolol along with Plavix and aspirin 5. COPD -Monitor -Appears stable currently DuoNebs as needed dyspnea VTE prophylaxis: Heparin CODE STATUS: Full code Dispo: 2 to 3 days pending improvement Attempt to call no answer on home phone and voicemail box full on cell phone.
[2020-08-07] MEDS: Lisinopril 10 MG Tab PO SCH (08:57)
[2020-08-07] MEDS: Metoprolol Tartrate 25 MG Tab PO SCH ×2 (08:59→20:24)
[2020-08-07] MEDS: Clopidogrel 75 MG Tab PO SCH (09:00)
[2020-08-07] MEDS: oxyCODONE 5 MG Tab PO PRN ×2 (09:00→15:03)
[2020-08-07 09:11] LABS: BLOOD UREA NITROGEN,BUN 13 mg/dL (7.0-18.0); CARBON DIOXIDE,CO2 20.4 mmol/L (21.0-32.0); CHLORIDE,CL 78 mmol/L (98-107); GLUCOSE RANDOM 102 mg/dL (74-106); POTASSIUM,K 3.7 mmol/L (3.5-5.1)
[2020-08-07 09:42] LABS: SODIUM,NA 110 mmol/L (136-148)
[2020-08-07] MEDS ORDERED: Furosemide 40 MG/4 ML VIAL IVPUSH ONE (10:03)
--- NOTE | 2020-08-07 12:30 | PCM.CONS ---
H&P History of Present Illness - General Date of Service: 08/07/20 Admit Problem/Dx: Admission Diagnosis/Problem Admission Diagnosis/Problem Hyponatremia Source of Information: Patient, Provider, RN History Limitations: Reports: Altered Mental Status - History of Present Illness Onset of Symptoms: Reports: Sudden Symptom Onset Date: 08/07/20 Duration of Symptoms: Reports: Hour(s): Location: Reports: Lower Extremity, Left Quality: Reports: Ache, Throbbing Severity: Moderate Improves with: Reports: Immobilization Worsens with: Reports: Movement Associated Symptoms: Reports: Malaise, Weakness Left Hip Pain Score (Numeric/FACES): 6 - Related Data Allergies/Adverse Reactions: Allergies Allergy/AdvReac Type Severity Reaction Status Date / Time No Known Allergies Allergy Verified 08/07/20 09:49 Home Medications: Home Meds Aspirin 81 mg PO BRK 08/30/17 [History] Clopidogrel Bisulfate [Clopidogrel] 75 mg PO DAILY 08/30/17 [History] Lisinopril 10 mg PO DAILY 08/30/17 [History] Metoprolol Tartrate 25 mg PO BID 08/30/17 [History] atorvaSTATin Calcium [Atorvastatin Calcium] 40 mg PO DAILY 08/30/17 [History] Furosemide 40 mg PO DAILY PRN 08/07/20 [History] hydroCHLOROthiazide [Hydrochlorothiazide] 12.5 mg PO DAILY 08/07/20 [History] oxyCODONE HCl [Oxycodone HCl] 10 mg PO QID PRN 08/07/20 [History] Past Medical History HEENT History: Reports: Allergic Rhinitis Cardiovascular History: Reports: Hypertension Respiratory History: Reports: COPD Gastrointestinal History: Reports: None Genitourinary History: Reports: None Musculoskeletal History: Reports: None Neurological History: Reports: None Psychiatric History: Reports: None Endocrine/Metabolic History: Reports: None Hematologic History: Reports: Other (See Below) Other Hematologic History: Easy bruising/bleeding Immunologic History: Reports: None Oncologic (Cancer) History: Reports: None Dermatologic History: Reports: None - Infectious Disease History Infectious Disease History: Reports: Chicken Pox - Past Surgical History HEENT Surgical History: Reports: None Neurological Surgical History: Reports: Laminectomy Musculoskeletal Surgical History: Reports: Other (See Below) Other Musculoskeletal Surgeries/Procedures:: Back surgery, both hips replaced, left hip 07/09/20 Social & Family History - Family History Family Medical History: No Pertinent Family History - Tobacco Use Tobacco Use Status *Q: Never Tobacco User Second Hand Smoke Exposure: No - Caffeine Use Caffeine Use: Reports: Coffee - Recreational Drug Use Recreational Drug Use: No H&P Review of Systems - Review of Systems: Review Of Systems: See Below General: Reports: No Symptoms HEENT: Reports: No Symptoms Pulmonary: Reports: No Symptoms Cardiovascular: Reports: No Symptoms Gastrointestinal: Reports: No Symptoms Genitourinary: Reports: No Symptoms Musculoskeletal: Reports: Leg Pain, Joint Pain, Joint Swelling, Muscle Pain Skin: Reports: Wound Psychiatric: Reports: Confusion Neurological: Reports: Weakness Hematologic/Lymphatic: Reports: No Symptoms Immunologic: Reports: No Symptoms Exam - Exam Exam: See Below - Vital Signs Vital Signs: Last Vital Signs Temp 37.1 C 08/07/20 11:13 Pulse 79 08/07/20 11:13 Resp 22 H 08/07/20 11:13 BP 171/78 H 08/07/20 11:13 Pulse Ox 93 L 08/07/20 11:13 Weight: 81.647 kg - Exam General: Alert, Oriented, Cooperative, Moderate Distress HEENT: Hearing Intact, Mucosa Moist & [place], Pupils Equal, Pupils Reactive Neck: Supple, Trachea Midline Lungs: Normal Respiratory Effort GI/Abdominal Exam: No Distention Extremities: Leg Pain, Limited Range of Motion Peripheral Pulses: 2+: Dorsalis Pedis (L) Skin: Wound Neurological: Cranial Nerves Intact Neuro Extensive - Mental Status: Alert, Normal Mood/Affect Psychiatric: Alert, Normal Mood Physical Exam Comments:: Distal 5 cm of would appears open to subcutaneous tissues but not deep to iliotibial band. no erythema. appropriate post op swelling. distal motor and sensory exam intact - Patient Data Lab Results Last 24 hrs: Laboratory Results - last 24 hr 08/07/20 08/07/20 08/07/20 Range/Units 00:08 00:08 01:15 WBC 7.05 (4.0-11.0) K/uL RBC 3.00 L (4.50-5.90) M/uL Hgb 9.3 L (13.0-17.0) g/dL Hct 25.7 L (38.0-50.0) % MCV 85.7 (80.0-98.0) fL MCH 31.0 (27.0-32.0) pg MCHC 36.2 (31.0-37.0) g/dL RDW Std Deviation 41.5 (28.0-62.0) fl RDW Coeff of Kavitha 14 (11.0-15.0) % Plt Count 285 (150-400) K/uL MPV 8.80 (7.40-12.00) fL Neut % (Auto) 79.1 (48.0-80.0) % Lymph % (Auto) 10.9 L (16.0-40.0) % [place] % (Auto) 9.5 (0.0-15.0) % Eos % (Auto) 0.4 (0.0-7.0) % Baso % (Auto) 0.1 (0.0-1.5) % Neut # (Auto) 5.6 (1.4-5.7) K/uL Lymph # (Auto) 0.8 (0.6-2.4) K/uL [place] # (Auto) 0.7 (0.0-0.8) K/uL Eos # (Auto) 0.0 (0.0-0.7) K/uL Baso # (Auto) 0.0 (0.0-0.1) K/uL Sodium 107 L* (136-148) mmol/L Potassium 3.8 (3.5-5.1) mmol/L Chloride 74 L (98-107) mmol/L Carbon Dioxide 24.7 (21.0-32.0) mmol/L BUN 11 (7.0-18.0) mg/dL Creatinine 1.0 (0.8-1.3) mg/dL Est Cr Clr Drug Dosing TNP Estimated GFR (MDRD) > 60.0 ml/min Glucose 103 (74-106) mg/dL Calcium 8.5 (8.5-10.1) mg/dL Total Bilirubin 0.9 (0.2-1.0) mg/dL AST 39 H (15-37) IU/L ALT 25 (14-63) IU/L Alkaline Phosphatase 137 H (46-116) U/L Troponin I < 0.050 (0.000-0.056) ng/mL B-Natriuretic Peptide (<100) PG/ML Total Protein 6.9 (6.4-8.2) g/dL Albumin 3.3 L (3.4-5.0) g/dL Globulin 3.6 (2.6-4.0) g/dL Albumin/Globulin Ratio 0.9 (0.9-1.6) SARS-CoV-2 RNA (KARIS) NEGATIVE (NEGATIVE) 08/07/20 08/07/20 08/07/20 Range/Units 04:20 04:20 08:35 WBC (4.0-11.0) K/uL RBC (4.50-5.90) M/uL Hgb (13.0-17.0) g/dL Hct (38.0-50.0) % MCV (80.0-98.0) fL MCH (27.0-32.0) pg MCHC (31.0-37.0) g/dL RDW Std Deviation (28.0-62.0) fl RDW Coeff of Kavitha (11.0-15.0) % Plt Count (150-400) K/uL MPV (7.40-12.00) fL Neut % (Auto) (48.0-80.0) % Lymph % (Auto) (16.0-40.0) % [place] % (Auto) (0.0-15.0) % Eos % (Auto) (0.0-7.0) % Baso % (Auto) (0.0-1.5) % Neut # (Auto) (1.4-5.7) K/uL Lymph # (Auto) (0.6-2.4) K/uL [place] # (Auto) (0.0-0.8) K/uL Eos # (Auto) (0.0-0.7) K/uL Baso # (Auto) (0.0-0.1) K/uL Sodium 110 L* 110 L* (136-148) mmol/L Potassium 3.5 3.7 (3.5-5.1) mmol/L Chloride 78 L 78 L (98-107) mmol/L Carbon Dioxide 23.2 20.4 L (21.0-32.0) mmol/L BUN 12 13 (7.0-18.0) mg/dL Creatinine 1.0 1.1 (0.8-1.3) mg/dL Est Cr Clr Drug Dosing 68.80 62.55 Estimated GFR (MDRD) > 60.0 > 60.0 ml/min Glucose 104 102 (74-106) mg/dL Calcium 8.0 L 8.4 L (8.5-10.1) mg/dL Total Bilirubin (0.2-1.0) mg/dL AST (15-37) IU/L ALT (14-63) IU/L Alkaline Phosphatase (46-116) U/L Troponin I (0.000-0.056) ng/mL B-Natriuretic Peptide 289 H (<100) PG/ML Total Protein (6.4-8.2) g/dL Albumin (3.4-5.0) g/dL Globulin (2.6-4.0) g/dL Albumin/Globulin Ratio (0.9-1.6) SARS-CoV-2 RNA (KARIS) (NEGATIVE) Result Diagrams: 08/07/20 00:08 08/07/20 08:35 Sepsis Event Note - Evaluation Sepsis Screening Result: No Definite Risk - Focused Exam Vital Signs: Vital Signs Temp Pulse Pulse Resp BP BP Pulse Ox 08/07/20 11:13 37.1 C 79 22 H 171/78 H 93 L 08/07/20 08:59 97 160/87 H 08/07/20 08:57 160/87 H 08/07/20 08:00 36.7 C 105 H 17 165/71 H 93 L 08/07/20 04:16 08/07/20 03:47 36.4 C 84 18 153/63 H 95 08/07/20 03:40 36.6 C 80 18 134/74 94 L 08/07/20 03:00 96 132/48 L 94 L 08/07/20 02:30 97 18 152/59 H 92 L 08/07/20 02:00 91 104/41 L 95 08/07/20 01:45 18 153/76 H 95 08/07/20 01:20 86 151/71 H 93 L 08/07/20 00:50 37.3 C 86 18 141/70 H 95 08/07/20 00:35 83 20 142/53 H 98 Pulse Ox 08/07/20 11:13 08/07/20 08:59 08/07/20 08:57 08/07/20 08:00 08/07/20 04:16 95 08/07/20 03:47 08/07/20 03:40 08/07/20 03:00 08/07/20 02:30 08/07/20 02:00 08/07/20 01:45 08/07/20 01:20 08/07/20 00:50 08/07/20 00:35 Consult PN Assessment/Plan POD#: other Procedures: Procedures ALANINE AMINO (ALT) (SGPT) (05/16/19) ASSAY OF AMYLASE (08/30/17) ASSAY OF CREATININE (05/16/19) ASSAY OF LIPASE (08/30/17) ASSAY OF TROPONIN QUANT (08/30/17) ASSAY OF VANCOMYCIN (05/16/19) CHEST X-RAY 1 VIEW FRONTAL (08/30/17) COLLECT BLOOD FROM PICC (05/16/19) COMPLETE CBC W/AUTO DIFF WBC (05/16/19) COMPREHEN METABOLIC PANEL (08/30/17) CT ANGIO ABDOMINAL ARTERIES (11/16/14) CT HEAD/BRAIN W/O DYE (08/30/17) CT PELVIS W/O DYE (08/30/17) DRAIN/INJ JOINT/BURSA W/O US (05/28/18) ELECTROCARDIOGRAM TRACING (08/30/17) EMERGENCY DEPT VISIT (08/30/17) HOT OR COLD PACKS THERAPY (02/05/18) HYDRATE IV INFUSION ADD-ON (08/30/17) MRI LUMBAR SPINE W/O DYE (05/16/14) NEEDLE LOCALIZATION BY XRAY (05/28/18) PROTHROMBIN TIME (08/30/17) PT EVAL LOW COMPLEX 20 MIN (01/05/18) PT EVALUATION (11/06/15) ROUTINE VENIPUNCTURE (05/16/19) THER/PROPH/DIAG INJ IV PUSH (08/30/17) THER/PROPH/DIAG IV INF ADDON (05/16/19) THER/PROPH/DIAG IV INF INIT (05/16/19) THERAPEUTIC ACTIVITIES (04/06/18) THERAPEUTIC EXERCISES (04/10/18) TX/PRO/DX INJ NEW DRUG ADDON (08/30/17) TX/PRO/DX INJ SAME DRUG DEMURRAGE CLERK (08/30/17) X-RAY EXAM HIP UNI 4/> VIEWS (08/30/17) (1) Wound dehiscence, surgical SNOMED Code(s): 026643051 Code(s): T81.31XA - DISRUPTION OF EXTERNAL OPERATION (SURGICAL) WOUND, NEC, INIT Current Visit: Yes Qualifiers: Encounter type: initial encounter Qualified Code(s): T81.31XA - Disruption of external operation (surgical) wound, not elsewhere classified, initial encounter Problem List Initiated/Reviewed/Updated: Yes Plan: A: 79 year old male with mild confusion, weakness, hyponatremia, s/p L MIAN early july at [place] with Dr. George, distal wound dehiscence P: Apply 7 day wound vac over open area, monitor for erythma, evaluate next Friday Date Consult Requested: 08/07/20 Reason for Consult: wound dehiscence Patient History Reviewed: Yes Admission H&P Reviewed: Yes Notified Requestor: Yes Time Spent (in minutes): 30
--- NOTE | 2020-08-07 13:10 | PN ---
THC Physician - Brief Progress [id number]/30/2020 12:36[facility] Neri Rocha ND - ALIDA (LAUREL) - ALIDA NUZHAT JACKSONDate of Service 08/07/2020 12:36HPI/Events of Note eICU admission [id number] male with past history significant for COPD and CAD presented to the hospital with nausea and dizziness. Patient woke up at night with complaints of significant dizziness and possibly had a fall hitting his head. Patient had been compliant with medication and b een doing well up until last night thus presented to the ED for further evaluation. On arrival to th e ED patient was noted to have stable vitals and initial blood work did reveal hyponatremia at 107 al peter with hypochloremia at 74 with normal creatinine. Patient was given 1 L NS bolus and initiated at NS 150 mL/h and admitted to the ICU for closer monitoring.Patient seen on camera patient seen on cam era, sitting up in bed does not appear to be in acute distress at this time.Vital signs reviewedLab/E MR reviewedHyponatremia-Unclear etiology at this time. Possibly hypervolemic HypoNa given exam findin gs and elevated BNP. -Repeat Na checks q4 hours.-Agree with holding IV fluids for now until further w ork-up is completed. Lasix 40 IV given. -Recommend obtaining serum osm, urine osm and urine Na. If po ssible getting urine sample from prior to lasix challenge. -Goal sodium is 113 in 24-wtypr-Glhxpplbv strict I/O's and daily weights-Continue to monitor for symptomatic hypoNa (AMS, seizure, etc). Crystal gore wound dehiscence-Ortho consulted and following. Wound vac recommended x 7 days. Thank you for al lowing us to participate in the care of this patientInterventions Major-Electrolyte abnormality - carey luation and management
[2020-08-07] MEDS: Morphine 2 MG/ML SYRINGE IVPUSH PRN ×2 (13:32→20:25)
[2020-08-07 13:35] LABS: BLOOD UREA NITROGEN,BUN 15 mg/dL (7.0-18.0); CARBON DIOXIDE,CO2 21.7 mmol/L (21.0-32.0); CHLORIDE,CL 78 mmol/L (98-107); GLUCOSE RANDOM 104 mg/dL (74-106); POTASSIUM,K 3.7 mmol/L (3.5-5.1)
[2020-08-07 13:43] LABS: SODIUM,NA 110 mmol/L (136-148)
[2020-08-07] MEDS ORDERED: Furosemide 20 MG/2 ML VIAL IVPUSH ONE (13:55)
[2020-08-07] MEDS ORDERED: Cyclobenzaprine 5 MG Tab PO ONE (15:49)
[2020-08-07 17:18] LABS: BLOOD UREA NITROGEN,BUN 16 mg/dL (7.0-18.0); CHLORIDE,CL 77 mmol/L (98-107); GLUCOSE RANDOM 107 mg/dL (74-106); POTASSIUM,K 3.3 mmol/L (3.5-5.1)
[2020-08-07 17:19] LABS: SODIUM,NA 111 mmol/L (136-148)
[2020-08-07] MEDS ORDERED: Potassium Chloride 20 MEQ Tab.ER PO ONE (19:59)
[2020-08-07] MEDS: atorvaSTATin 40 MG Tab PO SCH (20:23)
[2020-08-07 21:07] LABS: BLOOD UREA NITROGEN,BUN 18 mg/dL (7.0-18.0); CHLORIDE,CL 79 mmol/L (98-107); GLUCOSE RANDOM 123 mg/dL (74-106); POTASSIUM,K 2.9 mmol/L (3.5-5.1)
[2020-08-07 21:15] LABS: SODIUM,NA 111 mmol/L (136-148)
[2020-08-08] MEDS: oxyCODONE 5 MG Tab PO PRN ×4 (00:53→21:45)
[2020-08-08 01:03] LABS: BLOOD UREA NITROGEN,BUN 18 mg/dL (7.0-18.0); CARBON DIOXIDE,CO2 25.7 mmol/L (21.0-32.0); CHLORIDE,CL 80 mmol/L (98-107); GLUCOSE RANDOM 100 mg/dL (74-106); POTASSIUM,K 3.4 mmol/L (3.5-5.1)
[2020-08-08 01:05] LABS: SODIUM,NA 113 mmol/L (136-148)
[2020-08-08] MEDS: Heparin Sodium 5,000 Units/ML Vial SUBCUT SCH ×2 (04:33→16:09)
[2020-08-08 05:13] LABS: BLOOD UREA NITROGEN,BUN 18 mg/dL (7.0-18.0); CARBON DIOXIDE,CO2 25.1 mmol/L (21.0-32.0); CHLORIDE,CL 81 mmol/L (98-107); GLUCOSE RANDOM 109 mg/dL (74-106); POTASSIUM,K 3.1 mmol/L (3.5-5.1)
[2020-08-08 05:25] LABS: SODIUM,NA 114 mmol/L (136-148)
--- NOTE | 2020-08-08 08:05 | PCM.PN ---
- General Info Date of Service: 08/08/20 Admission Dx/Problem (Free Text): Admission Diagnosis/Problem Admission Diagnosis/Problem Hyponatremia Subjective Update: Don is doing well today reports pain is better controlled today. Denies any chest pain no overt shortness of breath. No further drainage from incision to left hip. Feels he is more alert today and definitely appears this way. Functional Status: Reports: Pain Controlled (Flexeril helped significantly last night we will add this on as needed), Tolerating Diet, Ambulating - Review of Systems General: Reports: No Symptoms. Denies: Fatigue, Malaise HEENT: Reports: No Symptoms Pulmonary: Reports: No Symptoms. Denies: Shortness of Breath, Cough Cardiovascular: Reports: No Symptoms. Denies: Chest Pain Gastrointestinal: Reports: No Symptoms. Denies: Abdominal Pain, Nausea, Vomiting Genitourinary: Reports: No Symptoms. Denies: Dysuria, Frequency, Burning Musculoskeletal: Reports: No Symptoms Skin: Reports: No Symptoms Neurological: Reports: No Symptoms Psychiatric: Reports: No Symptoms - Patient Data Vitals - Most Recent: Last Vital Signs Temp 97.5 F 08/08/20 04:00 Pulse 99 08/07/20 20:24 Resp 20 08/08/20 07:00 BP 141/66 H 08/08/20 07:00 Pulse Ox 90 L 08/08/20 07:00 Weight - Most Recent: 83.546 kg I&O - Last 24 Hours: Intake & Output 08/07/20 08/08/20 08/08/20 22:59 06:59 14:59 Intake Total 800 480 Output Total 2900 1100 Balance -2100 -620 Lab Results Last 24 Hours: Laboratory Results - last 24 hr 08/07/20 08/07/20 08/07/20 Range/Units 04:20 08:35 11:12 WBC (4.0-11.0) K/uL RBC (4.50-5.90) M/uL Hgb (13.0-17.0) g/dL Hct (38.0-50.0) % MCV (80.0-98.0) fL MCH (27.0-32.0) pg MCHC (31.0-37.0) g/dL RDW Std Deviation (28.0-62.0) fl RDW Coeff of Kavitha (11.0-15.0) % Plt Count (150-400) K/uL MPV (7.40-12.00) fL Neut % (Auto) (48.0-80.0) % Lymph % (Auto) (16.0-40.0) % [place] % (Auto) (0.0-15.0) % Eos % (Auto) (0.0-7.0) % Baso % (Auto) (0.0-1.5) % Neut # (Auto) (1.4-5.7) K/uL Lymph # (Auto) (0.6-2.4) K/uL [place] # (Auto) (0.0-0.8) K/uL Eos # (Auto) (0.0-0.7) K/uL Baso # (Auto) (0.0-0.1) K/uL Nucleated RBC % /100WBC Nucleated RBCs # K/uL Sodium 110 L* (136-148) mmol/L Potassium 3.7 (3.5-5.1) mmol/L Chloride 78 L (98-107) mmol/L Carbon Dioxide 20.4 L (21.0-32.0) mmol/L BUN 13 (7.0-18.0) mg/dL Creatinine 1.1 (0.8-1.3) mg/dL Est Cr Clr Drug Dosing 62.55 mL/min Estimated GFR (MDRD) > 60.0 ml/min Glucose 102 (74-106) mg/dL Calcium 8.4 L (8.5-10.1) mg/dL Magnesium (1.8-2.4) mg/dL B-Natriuretic Peptide 289 H (<100) PG/ML Urine Color YELLOW Urine Appearance CLEAR Urine pH 6.5 (5.0-8.0) Ur Specific [place] 1.015 (1.001-1.035) Urine Protein NEGATIVE (NEGATIVE) mg/dL Urine Glucose (UA) NEGATIVE (NEGATIVE) mg/dL Urine Ketones 15 H (NEGATIVE) mg/dL Urine Occult Blood MODERATE H (NEGATIVE) Urine Nitrite NEGATIVE (NEGATIVE) Urine Bilirubin NEGATIVE (NEGATIVE) Urine Urobilinogen 0.2 (<2.0) EU/dL Ur Leukocyte Esterase NEGATIVE (NEGATIVE) Urine RBC 3-5 (0-2/HPF) Urine WBC 0-1 (0-5/HPF) Ur Epithelial Cells RARE (NONE-FEW) Amorphous Sediment MODERATE (NEGATIVE) Urine Bacteria RARE (NEGATIVE) Ur Random Creatinine mg/dL Ur Random Sodium (40.0-220.0) mmol/L 08/07/20 08/07/20 08/07/20 Range/Units 11:12 12:45 16:40 WBC (4.0-11.0) K/uL RBC (4.50-5.90) M/uL Hgb (13.0-17.0) g/dL Hct (38.0-50.0) % MCV (80.0-98.0) fL MCH (27.0-32.0) pg MCHC (31.0-37.0) g/dL RDW Std Deviation (28.0-62.0) fl RDW Coeff of Kavitha (11.0-15.0) % Plt Count (150-400) K/uL MPV (7.40-12.00) fL Neut % (Auto) (48.0-80.0) % Lymph % (Auto) (16.0-40.0) % [place] % (Auto) (0.0-15.0) % Eos % (Auto) (0.0-7.0) % Baso % (Auto) (0.0-1.5) % Neut # (Auto) (1.4-5.7) K/uL Lymph # (Auto) (0.6-2.4) K/uL [place] # (Auto) (0.0-0.8) K/uL Eos # (Auto) (0.0-0.7) K/uL Baso # (Auto) (0.0-0.1) K/uL Nucleated RBC % /100WBC Nucleated RBCs # K/uL Sodium 110 L* 111 L* (136-148) mmol/L Potassium 3.7 3.3 L (3.5-5.1) mmol/L Chloride 78 L 77 L (98-107) mmol/L Carbon Dioxide 21.7 23.0 (21.0-32.0) mmol/L BUN 15 16 (7.0-18.0) mg/dL Creatinine 1.1 1.0 (0.8-1.3) mg/dL Est Cr Clr Drug Dosing 62.55 68.80 mL/min Estimated GFR (MDRD) > 60.0 > 60.0 ml/min Glucose 104 107 H (74-106) mg/dL Calcium 8.5 8.3 L (8.5-10.1) mg/dL Magnesium (1.8-2.4) mg/dL B-Natriuretic Peptide (<100) PG/ML Urine Color Urine Appearance Urine pH (5.0-8.0) Ur Specific [place] (1.001-1.035) Urine Protein (NEGATIVE) mg/dL Urine Glucose (UA) (NEGATIVE) mg/dL Urine Ketones (NEGATIVE) mg/dL Urine Occult Blood (NEGATIVE) Urine Nitrite (NEGATIVE) Urine Bilirubin (NEGATIVE) Urine Urobilinogen (<2.0) EU/dL Ur Leukocyte Esterase (NEGATIVE) Urine RBC (0-2/HPF) Urine WBC (0-5/HPF) Ur Epithelial Cells (NONE-FEW) Amorphous Sediment (NEGATIVE) Urine Bacteria (NEGATIVE) Ur Random Creatinine 55.2 mg/dL Ur Random Sodium 65.0 (40.0-220.0) mmol/L 08/07/20 08/08/20 08/08/20 Range/Units 20:37 00:44 04:28 WBC (4.0-11.0) K/uL RBC (4.50-5.90) M/uL Hgb (13.0-17.0) g/dL Hct (38.0-50.0) % MCV (80.0-98.0) fL MCH (27.0-32.0) pg MCHC (31.0-37.0) g/dL RDW Std Deviation (28.0-62.0) fl RDW Coeff of Kavitha (11.0-15.0) % Plt Count (150-400) K/uL MPV (7.40-12.00) fL Neut % (Auto) (48.0-80.0) % Lymph % (Auto) (16.0-40.0) % [place] % (Auto) (0.0-15.0) % Eos % (Auto) (0.0-7.0) % Baso % (Auto) (0.0-1.5) % Neut # (Auto) (1.4-5.7) K/uL Lymph # (Auto) (0.6-2.4) K/uL [place] # (Auto) (0.0-0.8) K/uL Eos # (Auto) (0.0-0.7) K/uL Baso # (Auto) (0.0-0.1) K/uL Nucleated RBC % /100WBC Nucleated RBCs # K/uL Sodium 111 L* 113 L* 114 L* (136-148) mmol/L Potassium 2.9 L 3.4 L 3.1 L (3.5-5.1) mmol/L Chloride 79 L 80 L 81 L (98-107) mmol/L Carbon Dioxide 24.0 25.7 25.1 (21.0-32.0) mmol/L BUN 18 18 18 (7.0-18.0) mg/dL Creatinine 1.1 1.1 1.1 (0.8-1.3) mg/dL Est Cr Clr Drug Dosing 62.55 62.55 62.55 mL/min Estimated GFR (MDRD) > 60.0 > 60.0 > 60.0 ml/min Glucose 123 H 100 109 H (74-106) mg/dL Calcium 7.8 L 8.1 L 7.9 L (8.5-10.1) mg/dL Magnesium 1.5 L (1.8-2.4) mg/dL B-Natriuretic Peptide (<100) PG/ML Urine Color Urine Appearance Urine pH (5.0-8.0) Ur Specific [place] (1.001-1.035) Urine Protein (NEGATIVE) mg/dL Urine Glucose (UA) (NEGATIVE) mg/dL Urine Ketones (NEGATIVE) mg/dL Urine Occult Blood (NEGATIVE) Urine Nitrite (NEGATIVE) Urine Bilirubin (NEGATIVE) Urine Urobilinogen (<2.0) EU/dL Ur Leukocyte Esterase (NEGATIVE) Urine RBC (0-2/HPF) Urine WBC (0-5/HPF) Ur Epithelial Cells (NONE-FEW) Amorphous Sediment (NEGATIVE) Urine Bacteria (NEGATIVE) Ur Random Creatinine mg/dL Ur Random Sodium (40.0-220.0) mmol/L 08/08/20 Range/Units 04:28 WBC 11.46 H (4.0-11.0) K/uL RBC 3.17 L (4.50-5.90) M/uL Hgb 9.7 L (13.0-17.0) g/dL Hct 27.3 L (38.0-50.0) % MCV 86.1 (80.0-98.0) fL MCH 30.6 (27.0-32.0) pg MCHC 35.5 (31.0-37.0) g/dL RDW Std Deviation 45.8 (28.0-62.0) fl RDW Coeff of Kavitha 15 (11.0-15.0) % Plt Count 276 (150-400) K/uL MPV 8.60 (7.40-12.00) fL Neut % (Auto) 86.7 H (48.0-80.0) % Lymph % (Auto) 4.9 L (16.0-40.0) % [place] % (Auto) 8.4 (0.0-15.0) % Eos % (Auto) 0.0 (0.0-7.0) % Baso % (Auto) 0.0 (0.0-1.5) % Neut # (Auto) 9.9 H (1.4-5.7) K/uL Lymph # (Auto) 0.6 (0.6-2.4) K/uL [place] # (Auto) 1.0 H (0.0-0.8) K/uL Eos # (Auto) 0.0 (0.0-0.7) K/uL Baso # (Auto) 0.0 (0.0-0.1) K/uL Nucleated RBC % 0.0 /100WBC Nucleated RBCs # 0 K/uL Sodium (136-148) mmol/L Potassium (3.5-5.1) mmol/L Chloride (98-107) mmol/L Carbon Dioxide (21.0-32.0) mmol/L BUN (7.0-18.0) mg/dL Creatinine (0.8-1.3) mg/dL Est Cr Clr Drug Dosing mL/min Estimated GFR (MDRD) ml/min Glucose (74-106) mg/dL Calcium (8.5-10.1) mg/dL Magnesium (1.8-2.4) mg/dL B-Natriuretic Peptide (<100) PG/ML Urine Color Urine Appearance Urine pH (5.0-8.0) Ur Specific [place] (1.001-1.035) Urine Protein (NEGATIVE) mg/dL Urine Glucose (UA) (NEGATIVE) mg/dL Urine Ketones (NEGATIVE) mg/dL Urine Occult Blood (NEGATIVE) Urine Nitrite (NEGATIVE) Urine Bilirubin (NEGATIVE) Urine Urobilinogen (<2.0) EU/dL Ur Leukocyte Esterase (NEGATIVE) Urine RBC (0-2/HPF) Urine WBC (0-5/HPF) Ur Epithelial Cells (NONE-FEW) Amorphous Sediment (NEGATIVE) Urine Bacteria (NEGATIVE) Ur Random Creatinine mg/dL Ur Random Sodium (40.0-220.0) mmol/L Med Orders - Current: Current Medications Acetaminophen (Tylenol) 650 mg PO Q4H PRN PRN Reason: Pain (Mild 1-3)/fever Aspirin (Aspirin) 81 mg PO DAILY [facility] Atorvastatin Calcium (Lipitor) 40 mg PO BEDTIME [facility] Last Admin: 08/07/20 20:23 Dose: 40 mg Documented by: Clopidogrel Bisulfate (Plavix) 75 mg PO DAILY [facility] Last Admin: 08/07/20 09:00 Dose: 75 mg Documented by: Heparin Sodium (Porcine) (Heparin Sodium) 5,000 units SUBCUT Q12H [facility] Last Admin: 08/08/20 04:33 Dose: 5,000 units Documented by: Lisinopril (Prinivil) 10 mg PO DAILY [facility] Last Admin: 08/07/20 08:57 Dose: 10 mg Documented by: Metoprolol Tartrate (Lopressor) 25 mg PO BID [facility] Last Admin: 08/07/20 20:24 Dose: 25 mg Documented by: Morphine Sulfate (Morphine) 2 mg IVPUSH Q4H PRN PRN Reason: Pain Last Admin: 08/07/20 20:25 Dose: 2 mg Documented by: Ondansetron HCl (Zofran) 4 mg IVPUSH Q4H PRN PRN Reason: Nausea/Vomiting Last Admin: 08/07/20 05:13 Dose: 4 mg Documented by: Oxycodone HCl (Oxycodone) 10 mg PO QID PRN PRN Reason: Pain Last Admin: 08/08/20 00:53 Dose: 10 mg Documented by: Discontinued Medications Cyclobenzaprine HCl (Flexeril) 5 mg PO ONETIME ONE Stop: 08/07/20 15:50 Last Admin: 08/07/20 15:59 Dose: 5 mg Documented by: Furosemide (Lasix) 40 mg IVPUSH NOW ONE Stop: 08/07/20 10:04 Last Admin: 08/07/20 11:04 Dose: 40 mg Documented by: Furosemide (Lasix) 20 mg IVPUSH NOW ONE Stop: 08/07/20 13:56 Last Admin: 08/07/20 14:40 Dose: 20 mg Documented by: Sodium Chloride (Normal Saline) 1,000 mls @ 999 mls/hr IV ASDIRECTED [facility] Last Admin: 08/07/20 02:07 Dose: 999 mls/hr Documented by: Sodium Chloride (Normal Saline) 1,000 mls @ 150 mls/hr IV ASDIRECTED [facility] Last Admin: 08/07/20 05:13 Dose: 150 mls/hr Documented by: Metoclopramide HCl (Reglan) 5 mg IVPUSH ONETIME ONE Stop: 08/07/20 00:57 Last Admin: 08/07/20 01:01 Dose: 5 mg Documented by: Morphine Sulfate (Morphine) 4 mg IVPUSH ONETIME ONE Stop: 08/07/20 00:12 Last Admin: 08/07/20 00:58 Dose: 4 mg Documented by: Morphine Sulfate (Morphine) Confirm Administered Dose 4 mg .ROUTE .STK-MED ONE Stop: 08/07/20 00:12 Last Admin: 08/07/20 01:03 Dose: Not Given Documented by: Morphine Sulfate (Morphine) 4 mg IVPUSH ONETIME ONE Stop: 08/07/20 00:13 Last Admin: 08/07/20 01:05 Dose: 4 mg Documented by: Morphine Sulfate (Morphine) 4 mg IVPUSH ONETIME ONE Stop: 08/07/20 01:58 Last Admin: 08/07/20 02:07 Dose: 4 mg Documented by: Morphine Sulfate (Morphine) Confirm Administered Dose 4 mg .ROUTE .STK-MED ONE Stop: 08/07/20 02:04 Last Admin: 08/07/20 02:21 Dose: Not Given Documented by: Ondansetron HCl (Zofran) 4 mg IVPUSH ONETIME ONE Stop: 08/07/20 00:16 Last Admin: 08/07/20 00:58 Dose: 4 mg Documented by: Potassium Chloride (Klor-Con M20) 40 meq PO ONETIME ONE Stop: 08/07/20 20:00 Last Admin: 08/07/20 20:23 Dose: 40 meq Documented by: - Exam General: Alert, Oriented, Cooperative, No Acute Distress Lungs: Decreased Breath Sounds (Bibasilar) Cardiovascular: Regular Rate, Regular Rhythm GI/Abdominal Exam: Normal Bowel Sounds, Soft, Non-Tender Extremities: Normal Inspection, Normal Range of Motion, Non-Tender, Pedal Edema (+2 pitting edema bilaterally) Wound/Incisions: Dressing Dry and Intact (Malcom dressing to left hip old blood drainage noted. No erythema or purulent drainage) Psy/Mental Status: Alert, Normal Affect, Normal Mood Sepsis Event Note - Evaluation Sepsis Screening Result: No Definite Risk - Focused Exam Vital Signs: Vital Signs Temp Pulse Resp BP BP BP Pulse Ox 08/08/20 07:00 20 141/66 H 90 L 08/08/20 06:00 18 142/75 H 94 L 08/08/20 05:00 16 98/52 L 98 08/08/20 04:00 97.5 F 18 93/51 L 95 08/08/20 03:00 15 172/62 H 95 08/08/20 02:00 17 136/64 94 L 08/08/20 01:00 19 171/76 H 90 L 08/08/20 00:00 97.3 F 17 110/47 L 95 08/07/20 23:00 14 151/71 H 94 L 08/07/20 22:00 16 149/65 H 94 L 08/07/20 21:00 16 152/64 H 94 L 08/07/20 20:24 99 110/52 L - Problem List & Annotations (1) Hyponatremia SNOMED Code(s): 23414618 Code(s): E87.1 - HYPO-OSMOLALITY AND HYPONATREMIA Status: Acute Current Visit: Yes (2) Hypertension SNOMED Code(s): 42127555 Code(s): I10 - ESSENTIAL (PRIMARY) HYPERTENSION Status: Acute Current Visit: Yes (3) COPD (chronic obstructive pulmonary disease) SNOMED Code(s): 19978764 Code(s): J44.9 - CHRONIC OBSTRUCTIVE PULMONARY DISEASE, UNSPECIFIED Status: Acute Current Visit: Yes (4) Fall SNOMED Code(s): 2008498, 362093780 Code(s): W19.XXXA - UNSPECIFIED FALL, INITIAL ENCOUNTER Status: Acute Current Visit: Yes (5) Dizziness SNOMED Code(s): 404361585, 129161233 Code(s): R42 - DIZZINESS AND GIDDINESS Status: Acute Current Visit: Yes (6) Wound dehiscence, surgical SNOMED Code(s): 881311500 Code(s): T81.31XA - DISRUPTION OF EXTERNAL OPERATION (SURGICAL) WOUND, NEC, INIT Status: Acute Current Visit: Yes Qualifiers: Encounter type: initial encounter Qualified Code(s): T81.31XA - Disruption of external operation (surgical) wound, not elsewhere classified, initial encounter (7) CAP (community acquired pneumonia) SNOMED Code(s): 435268431 Code(s): J18.9 - PNEUMONIA, UNSPECIFIED ORGANISM Status: Acute Current Visit: Yes - Problem List Review Problem List Initiated/Reviewed/Updated: Yes - My Orders Last 24 Hours: My Active Orders 08/07/20 08:01 Intake and Output Strict [RC] ASDIRECTED PT Evaluation and Treatment [CONS] Routine Acetaminophen [TylenoL] 650 mg PO Q4H PRN Resuscitation Status Routine 08/07/20 08:02 VTE/DVT Education [RC] PER UNIT ROUTINE 08/07/20 08:03 oxyCODONE 10 mg PO QID PRN 08/07/20 09:00 Clopidogrel [Plavix] 75 mg PO DAILY Metoprolol Tartrate [Lopressor] 25 mg PO BID lisinopriL [Prinivil] 10 mg PO DAILY 08/07/20 10:04 Transfer Patient (Change bed) [ADT] Routine 08/07/20 10:11 Urinary Catheter Assessment [RC] ASDIRECTED 08/07/20 10:15 Insert Savage Catheter [Insert Urinary Catheter] [OM.PC] Q24H 08/07/20 11:52 Consult to Physician [CONS] Routine 08/07/20 11:53 Notify Provider Consults [RC] ASDIRECTED 08/07/20 12:28 Morphine 2 mg IVPUSH Q4H PRN 08/07/20 13:49 Cardiac Monitoring [RC] . DIRECTED 08/07/20 14:03 Daily Weight [Height and Weight] [RC] DAILY Discontinue Telemetry Monitoring [Cardiac Monitoring Discontinue] [RC] Click to Edit 08/07/20 Dinner Fluid Restriction [DIET] Low Sodium [Sodium Restricted Diet] [DIET] 11/30/20 21:00 atorvaSTATin [Lipitor] 40 mg PO BEDTIME 08/08/20 08:30 BASIC METABOLIC PANEL,BMP [CHEM] Q4H 08/08/20 09:00 Aspirin 81 mg PO DAILY 08/08/20 10:11 Echo Comp wo Cont [US] Urgent 08/08/20 12:30 BASIC METABOLIC PANEL,BMP [CHEM] Q4H - Plan Plan:: This 79-year-old male admitted with significant hyponatremia 1. Hyponatremia -Repeat sodium this morning 115 -Continue Savage for strict I's and O's -Given Lasix overnight. Good output. Blood pressure soft this morning -Continue to repeat BMPs every 4 hours until sodium stable -Goal of correction to be 118 in the next 24 hours -Appreciate eICU's monitoring and recommendations -CT of chest obtained today to rule out lung mass causing hyponatremia did note possible opacities consideration for pneumonia. We will start Levaquin 750 mg IV daily and monitor. 2. left hip wound dehiscence -Malcom wound VAC intact we will continue to monitor 3. Peripheral edema -Mild improvement -History of CAD no current echo on chart. -We will obtain echo -BNP elevated -Strict I's and O's, daily weight, fluid restriction 1800 mls low-sodium diet 4. HTN/CAD -Continue lisinopril and metoprolol along with Plavix and aspirin 5. COPD -Monitor -Appears stable currently DuoNebs as needed dyspnea VTE prophylaxis: Heparin CODE STATUS: Full code Dispo: 2 to 3 days pending improvement Spoke with Sammie this afternoon updated her on findings as well as continue diagnostic approach to finding cause of hyponatremia.
[2020-08-08 08:42] LABS: CARBON DIOXIDE,CO2 26.8 mmol/L (21.0-32.0); POTASSIUM,K 3.7 mmol/L (3.5-5.1)
[2020-08-08] MEDS: Lisinopril 10 MG Tab PO SCH ×2 (08:50→08:58)
[2020-08-08] MEDS: Aspirin 81 MG Tab.Chew PO SCH (08:50)
[2020-08-08] MEDS: Metoprolol Tartrate 25 MG Tab PO SCH ×2 (08:50→20:57)
[2020-08-08] MEDS: Clopidogrel 75 MG Tab PO SCH (08:51)
[2020-08-08] MEDS: Docusate Sodium 100 MG Cap PO SCH ×3 (12:22→20:45)
[2020-08-08] MEDS: Cyclobenzaprine 5 MG Tab PO PRN (12:22)
[2020-08-08] MEDS ORDERED: Furosemide 40 MG/4 ML VIAL IVPUSH SCH (12:45)
[2020-08-08 13:13] LABS: POTASSIUM,K 3.8 mmol/L (3.5-5.1)
--- NOTE | 2020-08-08 13:31 | CT ---
INDICATION: Hyponatremia. Evaluate for a lung mass. TECHNIQUE: CT chest without contrast. COMPARISON: Chest radiograph from 08/07/2020. FINDINGS: Lungs: Severe emphysema. Mild chronic airways disease. A few small calcified pulmonary nodules are considered benign, and likely related to old healed granulomatous disease. A 5 mm subpleural nodule in the right lower lobe on axial image 65 is indeterminate but likely benign. A few small ill-defined opacities in the left lower lobe are indeterminate but presumably infectious or inflammatory in nature. Scattered endotracheal and endobronchial opacities are likely related to the retained secretions or less likely aspirated material. Remainder of the chest: Heart size is within normal limits. No pericardial effusion. Atherosclerotic changes including coronary artery calcifications are noted. No significant dilatation of the thoracic aorta. No pathologically enlarged lymph nodes are identified. Bones: Degenerative changes. No acute abnormality. Upper abdomen: Small hiatal hernia. Right renal atrophy. IMPRESSION: 1. No CT findings to suggest a primary pulmonary malignancy or evidence of pulmonary metastatic disease. 2. Scattered ill-defined opacities in the left lower lobe are noted, which are presumably infectious or inflammatory in nature. If clinically indicated, short-term follow up CT in 3 months could be obtained to re-evaluate these findings. 3. Emphysema. Chronic airways disease. 4. Incidental findings as noted. Dictated by Lemuel Hoffman MD @ 08/08/2020 1:28:40 PM Please note that all CT scans at this facility use dose modulation, iterative reconstruction, and/or weight-based dosing when appropriate to reduce radiation dose to as low as reasonably achievable. Dictated by: Lemuel Hoffman MD @ 08/08/2020 13:28:50 (Electronically Signed)
[2020-08-08] MEDS: Levofloxacin/Dextrose 5%-Water 750 MG in Premix Bag 1 BAG IV SCH (14:34)
[2020-08-08 17:21] LABS: CARBON DIOXIDE,CO2 26.9 mmol/L (21.0-32.0); POTASSIUM,K 3.3 mmol/L (3.5-5.1)
[2020-08-08] MEDS ORDERED: Potassium Chloride 20 MEQ Tab.ER PO ONE (17:31)
[2020-08-08] MEDS: atorvaSTATin 40 MG Tab PO SCH ×2 (19:47→20:45)
[2020-08-08 20:59] LABS: CARBON DIOXIDE,CO2 26.5 mmol/L (21.0-32.0); POTASSIUM,K 3.1 mmol/L (3.5-5.1)
--- NOTE | 2020-08-08 21:26 | PN ---
THC Physician - Brief Progress [id number]/01/2020 21:24[facility] maryNeri, FRANCISCO JAVIER - ALIDA (LAUREL) - JOSEN NUZHAT JACKSONDate of Service 08/08/2020 21:24HPI/Events of Note Labs reviewed with RN. Pt without any focal neuro deficits.Will replace K and start NS at 1 00/hr, follow BMP.Interventions Minor-Communication with other healthcare providers and/or familyElec tronically Signed by: RAYMOND BRODY () on 08/08/2020 21:25
[2020-08-08] MEDS ORDERED: Potassium Chloride Riders 20 MEQ in Premix Bag 1 BAG IV ONE (21:29)
[2020-08-08] MEDS: Sodium Chloride 0.9% 1,000 ML IV SCH (21:55)
[2020-08-09 00:56] LABS: CARBON DIOXIDE,CO2 27.2 mmol/L (21.0-32.0); POTASSIUM,K 3.9 mmol/L (3.5-5.1)
[2020-08-09] MEDS: Heparin Sodium 5,000 Units/ML Vial SUBCUT SCH ×2 (04:42→17:34)
[2020-08-09 05:06] LABS: POTASSIUM,K 3.8 mmol/L (3.5-5.1)
[2020-08-09] MEDS: oxyCODONE 5 MG Tab PO PRN ×3 (05:25→21:39)
--- NOTE | 2020-08-09 08:03 | PCM.PN ---
- General Info Date of Service: 08/09/20 Admission Dx/Problem (Free Text): Admission Diagnosis/Problem Admission Diagnosis/Problem Hyponatremia Subjective Update: Reports feeling more tired this morning and continues to have back and leg pain. He reports his pain is worse than his normal chronic pain. Denies any chest pain or shortness of breath. Reports edema to lower legs seem to improve. Functional Status: Reports: Pain Controlled, Tolerating Diet, Ambulating - Review of Systems General: Reports: Fatigue, Malaise HEENT: Reports: No Symptoms. Denies: Headaches, Visual Changes Pulmonary: Reports: No Symptoms. Denies: Shortness of Breath Cardiovascular: Reports: No Symptoms. Denies: Chest Pain Gastrointestinal: Denies: Abdominal Pain, Nausea, Vomiting Genitourinary: Reports: No Symptoms Musculoskeletal: Reports: Back Pain Skin: Reports: No Symptoms Neurological: Reports: No Symptoms Psychiatric: Reports: No Symptoms - Patient Data Vitals - Most Recent: Last Vital Signs Temp 97.7 F 08/09/20 04:00 Pulse 97 08/08/20 20:57 Resp 18 08/09/20 07:00 BP 134/59 L 08/09/20 07:00 Pulse Ox 96 08/09/20 07:00 Weight - Most Recent: 81.221 kg I&O - Last 24 Hours: Intake & Output 08/08/20 08/09/20 08/09/20 22:59 06:59 14:59 Intake Total 800 1490 Output Total 1050 980 Balance -250 510 Lab Results Last 24 Hours: Laboratory Results - last 24 hr 08/08/20 08/08/20 08/08/20 Range/Units 08:08 12:43 16:45 WBC (4.0-11.0) K/uL RBC (4.50-5.90) M/uL Hgb (13.0-17.0) g/dL Hct (38.0-50.0) % MCV (80.0-98.0) fL MCH (27.0-32.0) pg MCHC (31.0-37.0) g/dL RDW Std Deviation (28.0-62.0) fl RDW Coeff of Kavitha (11.0-15.0) % Plt Count (150-400) K/uL MPV (7.40-12.00) fL Neut % (Auto) (48.0-80.0) % Lymph % (Auto) (16.0-40.0) % [place] % (Auto) (0.0-15.0) % Eos % (Auto) (0.0-7.0) % Baso % (Auto) (0.0-1.5) % Neut # (Auto) (1.4-5.7) K/uL Lymph # (Auto) (0.6-2.4) K/uL Berg[place] # (Auto) (0.0-0.8) K/uL Eos # (Auto) (0.0-0.7) K/uL Baso # (Auto) (0.0-0.1) K/uL Nucleated RBC % /100WBC Nucleated RBCs # K/uL Sodium 115 L* 116 L* 117 L* (136-148) mmol/L Potassium 3.7 3.8 3.3 L (3.5-5.1) mmol/L Chloride 81 L 81 L 81 L (98-107) mmol/L Carbon Dioxide 26.8 25.0 26.9 (21.0-32.0) mmol/L BUN 18 19 H 21 H (7.0-18.0) mg/dL Creatinine 1.2 1.2 1.2 (0.8-1.3) mg/dL Est Cr Clr Drug Dosing 57.34 57.34 57.34 mL/min Estimated GFR (MDRD) 58.6 58.6 58.6 ml/min Glucose 111 H 110 H 110 H (74-106) mg/dL Calcium 8.4 L 8.2 L 8.3 L (8.5-10.1) mg/dL 08/08/20 08/09/20 08/09/20 Range/Units 20:36 00:34 04:43 WBC (4.0-11.0) K/uL RBC (4.50-5.90) M/uL Hgb (13.0-17.0) g/dL Hct (38.0-50.0) % MCV (80.0-98.0) fL MCH (27.0-32.0) pg MCHC (31.0-37.0) g/dL RDW Std Deviation (28.0-62.0) fl RDW Coeff of Kavitha (11.0-15.0) % Plt Count (150-400) K/uL MPV (7.40-12.00) fL Neut % (Auto) (48.0-80.0) % Lymph % (Auto) (16.0-40.0) % [place] % (Auto) (0.0-15.0) % Eos % (Auto) (0.0-7.0) % Baso % (Auto) (0.0-1.5) % Neut # (Auto) (1.4-5.7) K/uL Lymph # (Auto) (0.6-2.4) K/uL Berg[place] # (Auto) (0.0-0.8) K/uL Eos # (Auto) (0.0-0.7) K/uL Baso # (Auto) (0.0-0.1) K/uL Nucleated RBC % /100WBC Nucleated RBCs # K/uL Sodium 117 L* 118 L* 119 L* (136-148) mmol/L Potassium 3.1 L 3.9 3.8 (3.5-5.1) mmol/L Chloride 82 L 84 L 86 L (98-107) mmol/L Carbon Dioxide 26.5 27.2 26.0 (21.0-32.0) mmol/L BUN 20 H 21 H 20 H (7.0-18.0) mg/dL Creatinine 1.2 1.3 1.2 (0.8-1.3) mg/dL Est Cr Clr Drug Dosing 57.34 52.93 57.34 mL/min Estimated GFR (MDRD) 58.6 53.4 58.6 ml/min Glucose 111 H 107 H 107 H (74-106) mg/dL Calcium 7.9 L 7.7 L 8.0 L (8.5-10.1) mg/dL 08/09/20 Range/Units 04:43 WBC 13.79 H (4.0-11.0) K/uL RBC 3.24 L (4.50-5.90) M/uL Hgb 9.7 L (13.0-17.0) g/dL Hct 28.7 L (38.0-50.0) % MCV 88.6 (80.0-98.0) fL MCH 29.9 (27.0-32.0) pg MCHC 33.8 (31.0-37.0) g/dL RDW Std Deviation 48.8 (28.0-62.0) fl RDW Coeff of Kavitha 15 (11.0-15.0) % Plt Count 256 (150-400) K/uL MPV 8.70 (7.40-12.00) fL Neut % (Auto) 92.0 H (48.0-80.0) % Lymph % (Auto) 2.3 L (16.0-40.0) % [place] % (Auto) 5.6 (0.0-15.0) % Eos % (Auto) 0.0 (0.0-7.0) % Baso % (Auto) 0.1 (0.0-1.5) % Neut # (Auto) 12.7 H (1.4-5.7) K/uL Lymph # (Auto) 0.3 L (0.6-2.4) K/uL [place] # (Auto) 0.8 (0.0-0.8) K/uL Eos # (Auto) 0.0 (0.0-0.7) K/uL Baso # (Auto) 0.0 (0.0-0.1) K/uL Nucleated RBC % 0.0 /100WBC Nucleated RBCs # 0 K/uL Sodium (136-148) mmol/L Potassium (3.5-5.1) mmol/L Chloride (98-107) mmol/L Carbon Dioxide (21.0-32.0) mmol/L BUN (7.0-18.0) mg/dL Creatinine (0.8-1.3) mg/dL Est Cr Clr Drug Dosing mL/min Estimated GFR (MDRD) ml/min Glucose (74-106) mg/dL Calcium (8.5-10.1) mg/dL Med Orders - Current: Current Medications Acetaminophen (Tylenol) 650 mg PO Q4H PRN PRN Reason: Pain (Mild 1-3)/fever Aspirin (Aspirin) 81 mg PO DAILY [facility] Last Admin: 08/08/20 08:50 Dose: 81 mg Documented by: Atorvastatin Calcium (Lipitor) 40 mg PO BEDTIME SARAH Last Admin: 08/08/20 20:45 Dose: Not Given Documented by: Clopidogrel Bisulfate (Plavix) 75 mg PO DAILY [facility] Last Admin: 08/08/20 08:51 Dose: 75 mg Documented by: Cyclobenzaprine HCl (Flexeril) 5 mg PO TID PRN PRN Reason: Spasms Last Admin: 08/08/20 12:22 Dose: 5 mg Documented by: Docusate Sodium (Colace) 100 mg PO BID [facility] Last Admin: 08/08/20 20:45 Dose: Not Given Documented by: Heparin Sodium (Porcine) (Heparin Sodium) 5,000 units SUBCUT Q12H [facility] Last Admin: 08/09/20 04:42 Dose: 5,000 units Documented by: Levofloxacin/Dextrose 750 mg/ (Premix) 150 mls @ 100 mls/hr IV Q24H [facility] Last Admin: 08/08/20 14:34 Dose: 100 mls/hr Documented by: Sodium Chloride (Normal Saline) 1,000 mls @ 100 mls/hr IV ASDIRECTED [facility] Last Admin: 08/08/20 21:55 Dose: 100 mls/hr Documented by: Lisinopril (Prinivil) 10 mg PO DAILY [facility] Last Admin: 08/08/20 08:58 Dose: Not Given Documented by: Metoprolol Tartrate (Lopressor) 25 mg PO BID [facility] Last Admin: 08/08/20 20:57 Dose: 25 mg Documented by: Morphine Sulfate (Morphine) 2 mg IVPUSH Q4H PRN PRN Reason: Pain Last Admin: 08/07/20 20:25 Dose: 2 mg Documented by: Ondansetron HCl (Zofran) 4 mg IVPUSH Q4H PRN PRN Reason: Nausea/Vomiting Last Admin: 08/07/20 05:13 Dose: 4 mg Documented by: Oxycodone HCl (Oxycodone) 10 mg PO QID PRN PRN Reason: Pain Last Admin: 08/09/20 05:25 Dose: 10 mg Documented by: Discontinued Medications Cyclobenzaprine HCl (Flexeril) 5 mg PO ONETIME ONE Stop: 08/07/20 15:50 Last Admin: 08/07/20 15:59 Dose: 5 mg Documented by: Furosemide (Lasix) 40 mg IVPUSH NOW ONE Stop: 08/07/20 10:04 Last Admin: 08/07/20 11:04 Dose: 40 mg Documented by: Furosemide (Lasix) 20 mg IVPUSH NOW ONE Stop: 08/07/20 13:56 Last Admin: 08/07/20 14:40 Dose: 20 mg Documented by: Furosemide (Lasix) 40 mg IVPUSH DAILY [facility] Last Admin: 08/08/20 13:33 Dose: 40 mg Documented by: Sodium Chloride (Normal Saline) 1,000 mls @ 999 mls/hr IV ASDIRECTED [facility] Last Admin: 08/07/20 02:07 Dose: 999 mls/hr Documented by: Sodium Chloride (Normal Saline) 1,000 mls @ 150 mls/hr IV ASDIRECTED [facility] Last Admin: 08/07/20 05:13 Dose: 150 mls/hr Documented by: Potassium Chloride 20 meq/ (Premix) 50 mls @ 25 mls/hr IV ONETIME ONE Stop: 08/08/20 23:28 Last Admin: 08/08/20 21:55 Dose: 25 mls/hr Documented by: Metoclopramide HCl (Reglan) 5 mg IVPUSH ONETIME ONE Stop: 08/07/20 00:57 Last Admin: 08/07/20 01:01 Dose: 5 mg Documented by: Morphine Sulfate (Morphine) 4 mg IVPUSH ONETIME ONE Stop: 08/07/20 00:12 Last Admin: 08/07/20 00:58 Dose: 4 mg Documented by: Morphine Sulfate (Morphine) Confirm Administered Dose 4 mg .ROUTE .STK-MED ONE Stop: 08/07/20 00:12 Last Admin: 08/07/20 01:03 Dose: Not Given Documented by: Morphine Sulfate (Morphine) 4 mg IVPUSH ONETIME ONE Stop: 08/07/20 00:13 Last Admin: 08/07/20 01:05 Dose: 4 mg Documented by: Morphine Sulfate (Morphine) 4 mg IVPUSH ONETIME ONE Stop: 08/07/20 01:58 Last Admin: 08/07/20 02:07 Dose: 4 mg Documented by: Morphine Sulfate (Morphine) Confirm Administered Dose 4 mg .ROUTE .STK-MED ONE Stop: 08/07/20 02:04 Last Admin: 08/07/20 02:21 Dose: Not Given Documented by: Ondansetron HCl (Zofran) 4 mg IVPUSH ONETIME ONE Stop: 08/07/20 00:16 Last Admin: 08/07/20 00:58 Dose: 4 mg Documented by: Potassium Chloride (Klor-Con M20) 40 meq PO ONETIME ONE Stop: 08/07/20 20:00 Last Admin: 08/07/20 20:23 Dose: 40 meq Documented by: Potassium Chloride (Klor-Con M20) 40 meq PO ONETIME ONE Stop: 08/08/20 17:32 Last Admin: 08/08/20 19:47 Dose: 40 meq Documented by: - Exam General: Alert, Oriented, Cooperative Lungs: Normal Respiratory Effort, Decreased Breath Sounds (Bibasilar). No: Wheezing Cardiovascular: Regular Rate, Regular Rhythm, No Murmurs GI/Abdominal Exam: Normal Bowel Sounds, Soft, Non-Tender Back Exam: Normal Inspection, Full Range of Motion Extremities: Normal Inspection, Normal Range of Motion, Non-Tender, No Pedal Edema Neurological: No New Focal Deficit Psy/Mental Status: Alert, Normal Affect, Normal Mood Sepsis Event Note - Evaluation Sepsis Screening Result: No Definite Risk - Focused Exam Vital Signs: Vital Signs Temp Pulse Resp BP BP Pulse Ox 08/09/20 07:00 18 134/59 L 96 08/09/20 06:00 20 145/53 H 95 08/09/20 05:00 12 118/47 L 95 08/09/20 04:00 97.7 F 19 140/54 L 96 08/09/20 03:00 20 105/39 L 94 L 08/09/20 02:00 15 109/38 L 96 08/09/20 01:00 16 111/52 L 96 08/09/20 00:00 97.3 F 16 141/72 H 95 08/08/20 23:00 18 93/49 L 96 08/08/20 22:00 12 95/46 L 95 08/08/20 21:00 19 138/57 L 92 L 08/08/20 20:57 97 138/57 L - Problem List & Annotations (1) Hyponatremia SNOMED Code(s): 07619233 Code(s): E87.1 - HYPO-OSMOLALITY AND HYPONATREMIA Status: Acute Current Visit: Yes (2) Hypertension SNOMED Code(s): 55995198 Code(s): I10 - ESSENTIAL (PRIMARY) HYPERTENSION Status: Acute Current Visit: Yes (3) COPD (chronic obstructive pulmonary disease) SNOMED Code(s): 69279581 Code(s): J44.9 - CHRONIC OBSTRUCTIVE PULMONARY DISEASE, UNSPECIFIED Status: Acute Current Visit: Yes (4) Fall SNOMED Code(s): 5912748, 130122925 Code(s): W19.XXXA - UNSPECIFIED FALL, INITIAL ENCOUNTER Status: Acute Current Visit: Yes (5) Dizziness SNOMED Code(s): 687787889, 624036678 Code(s): R42 - DIZZINESS AND GIDDINESS Status: Acute Current Visit: Yes (6) Wound dehiscence, surgical SNOMED Code(s): 486896502 Code(s): T81.31XA - DISRUPTION OF EXTERNAL OPERATION (SURGICAL) WOUND, NEC, INIT Status: Acute Current Visit: Yes Qualifiers: Encounter type: initial encounter Qualified Code(s): T81.31XA - Disruption of external operation (surgical) wound, not elsewhere classified, initial encounter (7) CAP (community acquired pneumonia) SNOMED Code(s): 287368108 Code(s): J18.9 - PNEUMONIA, UNSPECIFIED ORGANISM Status: Acute Current Visit: Yes - Problem List Review Problem List Initiated/Reviewed/Updated: Yes - My Orders Last 24 Hours: My Active Orders 08/08/20 09:00 Aspirin 81 mg PO DAILY 08/08/20 09:23 Cyclobenzaprine [Flexeril] 5 mg PO TID PRN 08/08/20 10:11 Echo Comp wo Cont [US] Urgent 08/08/20 10:45 Docusate Sodium [Colace] 100 mg PO BID 08/08/20 10:56 PT Evaluation and Treatment [CONS] Routine 08/08/20 14:30 Levofloxacin/Dextrose 5%-Water [Levaquin in D5W 750 MG/150 ML] 750 mg Premix Bag 1 bag IV Q24H 08/09/20 07:59 MAGNESIUM [CHEM] Routine 08/09/20 08:30 BMP [BASIC METABOLIC PANEL,BMP] [CHEM] Q4H 08/09/20 12:30 BMP [BASIC METABOLIC PANEL,BMP] [CHEM] Q4H - Plan Plan:: This 79-year-old male admitted with significant hyponatremia 1. Hyponatremia -Repeat sodium this morning 120 -Continue Savage for strict I's and O's -eICU started normal saline at 100 overnight. Blood pressures were noted to be quite low with one measuring 89/50s. -Continue to repeat BMPs every 4 hours until sodium stable -Goal of correction to be 124 in the next 24 hours -Appreciate eICU's monitoring and recommendations 2. Possible CAP: -Noted on chest CT -Continue Levaquin 750 IV daily 3. Left hip wound dehiscence -Malcom wound VAC intact we will continue to monitor 4. Peripheral edema -Good improvement since yesterday. -History of CAD no current echo on chart. -Echo pending -BNP elevated -Strict I's and O's, daily weight, fluid restriction 1800 mls low-sodium diet 5. HTN/CAD -Continue lisinopril and metoprolol - Plavix and aspirin 6. COPD -Monitor -DuoNebs as needed dyspnea 7. Chronic back pain -Has worsened since fall prior to admission -Will obtain lumbar sacral x-rays. VTE prophylaxis: Heparin CODE STATUS: Full code Dispo: 2 to 3 days pending improvement
[2020-08-09] MEDS: Sodium Chloride 0.9% 1,000 ML IV SCH ×2 (08:17→20:35)
[2020-08-09] MEDS: Aspirin 81 MG Tab.Chew PO SCH (08:33)
[2020-08-09] MEDS: Metoprolol Tartrate 25 MG Tab PO SCH ×2 (08:34→20:49)
[2020-08-09] MEDS: Lisinopril 10 MG Tab PO SCH (08:34)
[2020-08-09] MEDS: Docusate Sodium 100 MG Cap PO SCH ×2 (08:35→20:49)
[2020-08-09] MEDS: Clopidogrel 75 MG Tab PO SCH (08:35)
[2020-08-09 08:59] LABS: CARBON DIOXIDE,CO2 27.8 mmol/L (21.0-32.0); POTASSIUM,K 3.7 mmol/L (3.5-5.1)
[2020-08-09] MEDS ORDERED: Magnesium Sulfate/Water 2 GM/50 ML BAG IV ONE (09:14)
--- NOTE | 2020-08-09 12:18 | CR ---
Indication: Pain Comparison: None available. Technique: AP and lateral views thoracic spine were obtained Findings: There is no displaced fracture or dislocation. The vertebral body heights are grossly maintained with mild multi-level degenerative disc disease. There is no significant spondylolisthesis. There is no significant scoliotic deformity of the AP alignment. The soft tissues are unremarkable. Impression: Mild multilevel degenerative changes of the thoracic spine without evidence of definite, displaced fracture. Dictated by Froilan Abdi MD @ Aug 09 2020 12:13PM Signed by Dr. Froilan Abdi @ Aug 09 2020 12:16PM
--- NOTE | 2020-08-09 12:20 | CR ---
Indication: Pain Comparison: None available. Technique: AP and lateral views lumbar spine were obtained Findings: There is no displaced fracture or dislocation. The lumbar vertebral body heights are grossly maintained with mild to moderate multilevel degenerative disc disease. There is trace retrolisthesis of L2 on L3. Stent material is appreciated within the likely iliac vessels. Impression: Moderate degenerative changes of the lumbar spine without acute osseous abnormality. Dictated by Froilan Abdi MD @ Aug 09 2020 12:12PM Signed by Dr. Froilan Abdi @ Aug 09 2020 12:18PM
[2020-08-09 13:55] LABS: POTASSIUM,K 3.9 mmol/L (3.5-5.1)
[2020-08-09] MEDS: Acetaminophen 325 MG Tab PO PRN ×2 (13:59→21:38)
[2020-08-09] MEDS: Levofloxacin/Dextrose 5%-Water 750 MG in Premix Bag 1 BAG IV SCH (14:02)
[2020-08-09 17:18] LABS: CARBON DIOXIDE,CO2 26.1 mmol/L (21.0-32.0); POTASSIUM,K 3.9 mmol/L (3.5-5.1)
[2020-08-09] MEDS: atorvaSTATin 40 MG Tab PO SCH (20:49)
[2020-08-09 21:05] LABS: CARBON DIOXIDE,CO2 24.9 mmol/L (21.0-32.0); POTASSIUM,K 3.3 mmol/L (3.5-5.1)
[2020-08-09] MEDS ORDERED: Potassium Chloride Riders 40 MEQ in Premix Bag 1 BAG IV ONE (21:58)
[2020-08-10 00:55] LABS: CARBON DIOXIDE,CO2 24.4 mmol/L (21.0-32.0); POTASSIUM,K 3.8 mmol/L (3.5-5.1)
[2020-08-10] MEDS: Cyclobenzaprine 5 MG Tab PO PRN ×2 (01:16→12:11)
[2020-08-10] MEDS: Morphine 2 MG/ML SYRINGE IVPUSH PRN (02:18)
[2020-08-10] MEDS: Acetaminophen 325 MG Tab PO PRN ×4 (03:39→22:07)
[2020-08-10] MEDS: oxyCODONE 5 MG Tab PO PRN ×4 (03:40→22:09)
[2020-08-10] MEDS: Heparin Sodium 5,000 Units/ML Vial SUBCUT SCH ×2 (04:38→16:22)
[2020-08-10] MEDS: Sodium Chloride 0.9% 1,000 ML IV SCH ×3 (04:56→20:11)
[2020-08-10 05:31] LABS: BLOOD UREA NITROGEN,BUN 17 mg/dL (7.0-18.0); CARBON DIOXIDE,CO2 24.3 mmol/L (21.0-32.0); CHLORIDE,CL 93 mmol/L (98-107); GLUCOSE RANDOM 108 mg/dL (74-106); POTASSIUM,K 3.9 mmol/L (3.5-5.1); SODIUM,NA 123 mmol/L (136-148)
[2020-08-10] MEDS: Aspirin 81 MG Tab.Chew PO SCH (08:59)
[2020-08-10] MEDS: Metoprolol Tartrate 25 MG Tab PO SCH ×2 (09:00→20:08)
[2020-08-10] MEDS: Docusate Sodium 100 MG Cap PO SCH ×2 (09:00→20:09)
[2020-08-10] MEDS: Clopidogrel 75 MG Tab PO SCH (09:01)
[2020-08-10] MEDS: Lisinopril 10 MG Tab PO SCH (09:01)
--- NOTE | 2020-08-10 09:09 | PCM.PN ---
- General Info Date of Service: 08/10/20 Admission Dx/Problem (Free Text): Admission Diagnosis/Problem Admission Diagnosis/Problem Hyponatremia Subjective Update: Reports feeling sleepy this morning. Had significant amount of back pain over the night. Denies any chest pain shortness of breath or palpitations. No fevers or chills. No cough. Continues to be alert and oriented. Dressing to left hip intact. Denies any dizziness or lightheadedness. Did not work with PT yesterday. Functional Status: Reports: Tolerating Diet. Denies: Ambulating - Review of Systems General: Reports: Fatigue HEENT: Reports: No Symptoms. Denies: Headaches, Sore Throat, Visual Changes Pulmonary: Reports: No Symptoms. Denies: Shortness of Breath Cardiovascular: Reports: No Symptoms. Denies: Chest Pain Gastrointestinal: Reports: No Symptoms. Denies: Abdominal Pain, Nausea, Vomiting Genitourinary: Reports: No Symptoms Musculoskeletal: Reports: Back Pain Skin: Reports: No Symptoms Neurological: Reports: No Symptoms Psychiatric: Reports: No Symptoms - Patient Data Vitals - Most Recent: Last Vital Signs Temp 98.4 F 08/10/20 08:00 Pulse 91 08/10/20 09:00 Resp 14 08/10/20 08:00 BP 165/66 H 08/10/20 09:01 Pulse Ox 96 08/10/20 08:00 Weight - Most Recent: 83.189 kg I&O - Last 24 Hours: Intake & Output 08/09/20 08/10/20 08/10/20 22:59 06:59 14:59 Intake Total 1470 2118 Output Total 525 1300 Balance 945 818 Lab Results Last 24 Hours: Laboratory Results - last 24 hr 08/09/20 08/09/20 08/09/20 Range/Units 12:54 16:51 20:45 WBC (4.0-11.0) K/uL RBC (4.50-5.90) M/uL Hgb (13.0-17.0) g/dL Hct (38.0-50.0) % MCV (80.0-98.0) fL MCH (27.0-32.0) pg MCHC (31.0-37.0) g/dL RDW Std Deviation (28.0-62.0) fl RDW Coeff of Kavitha (11.0-15.0) % Plt Count (150-400) K/uL MPV (7.40-12.00) fL Neut % (Auto) (48.0-80.0) % Lymph % (Auto) (16.0-40.0) % Lasalle % (Auto) (0.0-15.0) % Eos % (Auto) (0.0-7.0) % Baso % (Auto) (0.0-1.5) % Neut # (Auto) (1.4-5.7) K/uL Lymph # (Auto) (0.6-2.4) K/uL Lasalle # (Auto) (0.0-0.8) K/uL Eos # (Auto) (0.0-0.7) K/uL Baso # (Auto) (0.0-0.1) K/uL Nucleated RBC % /100WBC Nucleated RBCs # K/uL Sodium 122 L 122 L 123 L (136-148) mmol/L Potassium 3.9 3.9 3.3 L (3.5-5.1) mmol/L Chloride 88 L 90 L 91 L (98-107) mmol/L Carbon Dioxide 24.0 26.1 24.9 (21.0-32.0) mmol/L BUN 20 H 20 H 19 H (7.0-18.0) mg/dL Creatinine 1.3 1.2 1.3 (0.8-1.3) mg/dL Est Cr Clr Drug Dosing 52.93 57.34 52.93 mL/min Estimated GFR (MDRD) 53.4 58.6 53.4 ml/min Glucose 107 H 107 H 122 H (74-106) mg/dL Calcium 8.3 L 7.9 L 7.5 L (8.5-10.1) mg/dL Magnesium (1.8-2.4) mg/dL 08/10/20 08/10/20 08/10/20 Range/Units 00:30 04:44 04:44 WBC 5.77 (4.0-11.0) K/uL RBC 2.82 L (4.50-5.90) M/uL Hgb 8.5 L (13.0-17.0) g/dL Hct 25.4 L (38.0-50.0) % MCV 90.1 (80.0-98.0) fL MCH 30.1 (27.0-32.0) pg MCHC 33.5 (31.0-37.0) g/dL RDW Std Deviation 50.3 (28.0-62.0) fl RDW Coeff of Kavitha 15 (11.0-15.0) % Plt Count 227 (150-400) K/uL MPV 8.90 (7.40-12.00) fL Neut % (Auto) 86.2 H (48.0-80.0) % Lymph % (Auto) 5.9 L (16.0-40.0) % [place] % (Auto) 7.5 (0.0-15.0) % Eos % (Auto) 0.2 (0.0-7.0) % Baso % (Auto) 0.2 (0.0-1.5) % Neut # (Auto) 5.0 (1.4-5.7) K/uL Lymph # (Auto) 0.3 L (0.6-2.4) K/uL Lasalle # (Auto) 0.4 (0.0-0.8) K/uL Eos # (Auto) 0.0 (0.0-0.7) K/uL Baso # (Auto) 0.0 (0.0-0.1) K/uL Nucleated RBC % 0.0 /100WBC Nucleated RBCs # 0 K/uL Sodium 121 L 123 L (136-148) mmol/L Potassium 3.8 3.9 (3.5-5.1) mmol/L Chloride 91 L 93 L (98-107) mmol/L Carbon Dioxide 24.4 24.3 (21.0-32.0) mmol/L BUN 20 H 17 (7.0-18.0) mg/dL Creatinine 1.2 1.1 (0.8-1.3) mg/dL Est Cr Clr Drug Dosing 57.34 62.55 mL/min Estimated GFR (MDRD) 58.6 > 60.0 ml/min Glucose 118 H 108 H (74-106) mg/dL Calcium 7.6 L 7.7 L (8.5-10.1) mg/dL Magnesium 2.0 (1.8-2.4) mg/dL Med Orders - Current: Current Medications Acetaminophen (Tylenol) 650 mg PO Q4H PRN PRN Reason: Pain (Mild 1-3)/fever Last Admin: 08/10/20 08:57 Dose: 650 mg Documented by: Aspirin (Aspirin) 81 mg PO DAILY [facility] Last Admin: 08/10/20 08:59 Dose: 81 mg Documented by: Atorvastatin Calcium (Lipitor) 40 mg PO BEDTIME [facility] Last Admin: 08/09/20 20:49 Dose: 40 mg Documented by: Clopidogrel Bisulfate (Plavix) 75 mg PO DAILY [facility] Last Admin: 08/10/20 09:01 Dose: 75 mg Documented by: Cyclobenzaprine HCl (Flexeril) 5 mg PO TID PRN PRN Reason: Spasms Last Admin: 08/10/20 01:16 Dose: 5 mg Documented by: Docusate Sodium (Colace) 100 mg PO BID [facility] Last Admin: 08/10/20 09:00 Dose: 100 mg Documented by: Heparin Sodium (Porcine) (Heparin Sodium) 5,000 units SUBCUT Q12H [facility] Last Admin: 08/10/20 04:38 Dose: 5,000 units Documented by: Levofloxacin/Dextrose 750 mg/ (Premix) 150 mls @ 100 mls/hr IV Q24H [facility] Last Admin: 08/09/20 14:02 Dose: 100 mls/hr Documented by: Sodium Chloride (Normal Saline) 1,000 mls @ 100 mls/hr IV ASDIRECTED [facility] Last Admin: 08/10/20 04:56 Dose: 150 mls/hr Documented by: Lisinopril (Prinivil) 10 mg PO DAILY [facility] Last Admin: 08/10/20 09:01 Dose: 10 mg Documented by: Metoprolol Tartrate (Lopressor) 25 mg PO BID [facility] Last Admin: 08/10/20 09:00 Dose: 25 mg Documented by: Morphine Sulfate (Morphine) 2 mg IVPUSH Q4H PRN PRN Reason: Pain Last Admin: 08/10/20 02:18 Dose: 2 mg Documented by: Ondansetron HCl (Zofran) 4 mg IVPUSH Q4H PRN PRN Reason: Nausea/Vomiting Last Admin: 08/07/20 05:13 Dose: 4 mg Documented by: Oxycodone HCl (Oxycodone) 10 mg PO QID PRN PRN Reason: Pain Last Admin: 08/10/20 03:40 Dose: 10 mg Documented by: Discontinued Medications Cyclobenzaprine HCl (Flexeril) 5 mg PO ONETIME ONE Stop: 08/07/20 15:50 Last Admin: 08/07/20 15:59 Dose: 5 mg Documented by: Furosemide (Lasix) 40 mg IVPUSH NOW ONE Stop: 08/07/20 10:04 Last Admin: 08/07/20 11:04 Dose: 40 mg Documented by: Furosemide (Lasix) 20 mg IVPUSH NOW ONE Stop: 08/07/20 13:56 Last Admin: 08/07/20 14:40 Dose: 20 mg Documented by: Furosemide (Lasix) 40 mg IVPUSH DAILY [facility] Last Admin: 08/08/20 13:33 Dose: 40 mg Documented by: Sodium Chloride (Normal Saline) 1,000 mls @ 999 mls/hr IV ASDIRECTED [facility] Last Admin: 08/07/20 02:07 Dose: 999 mls/hr Documented by: Sodium Chloride (Normal Saline) 1,000 mls @ 150 mls/hr IV ASDIRECTED [facility] Last Admin: 08/07/20 05:13 Dose: 150 mls/hr Documented by: Potassium Chloride 20 meq/ (Premix) 50 mls @ 25 mls/hr IV ONETIME ONE Stop: 08/08/20 23:28 Last Admin: 08/08/20 21:55 Dose: 25 mls/hr Documented by: Magnesium Sulfate (Magnesium Sulfate In Water Premix) 2 gm in 50 mls @ 50 mls/hr IV ONETIME ONE Stop: 08/09/20 10:13 Last Admin: 08/09/20 09:58 Dose: 50 mls/hr Documented by: Potassium Chloride 40 meq/ (Premix) 100 mls @ 25 mls/hr IV ONETIME ONE Stop: 08/10/20 01:57 Last Admin: 08/09/20 22:11 Dose: 25 mls/hr Documented by: Metoclopramide HCl (Reglan) 5 mg IVPUSH ONETIME ONE Stop: 08/07/20 00:57 Last Admin: 08/07/20 01:01 Dose: 5 mg Documented by: Morphine Sulfate (Morphine) 4 mg IVPUSH ONETIME ONE Stop: 08/07/20 00:12 Last Admin: 08/07/20 00:58 Dose: 4 mg Documented by: Morphine Sulfate (Morphine) Confirm Administered Dose 4 mg .ROUTE .STK-MED ONE Stop: 08/07/20 00:12 Last Admin: 08/07/20 01:03 Dose: Not Given Documented by: Morphine Sulfate (Morphine) 4 mg IVPUSH ONETIME ONE Stop: 08/07/20 00:13 Last Admin: 08/07/20 01:05 Dose: 4 mg Documented by: Morphine Sulfate (Morphine) 4 mg IVPUSH ONETIME ONE Stop: 08/07/20 01:58 Last Admin: 08/07/20 02:07 Dose: 4 mg Documented by: Morphine Sulfate (Morphine) Confirm Administered Dose 4 mg .ROUTE .STK-MED ONE Stop: 08/07/20 02:04 Last Admin: 08/07/20 02:21 Dose: Not Given Documented by: Ondansetron HCl (Zofran) 4 mg IVPUSH ONETIME ONE Stop: 08/07/20 00:16 Last Admin: 08/07/20 00:58 Dose: 4 mg Documented by: Potassium Chloride (Klor-Con M20) 40 meq PO ONETIME ONE Stop: 08/07/20 20:00 Last Admin: 08/07/20 20:23 Dose: 40 meq Documented by: Potassium Chloride (Klor-Con M20) 40 meq PO ONETIME ONE Stop: 08/08/20 17:32 Last Admin: 08/08/20 19:47 Dose: 40 meq Documented by: - Exam General: Alert, Oriented, Cooperative, No Acute Distress Lungs: Clear to Auscultation, Normal Respiratory Effort Cardiovascular: Regular Rate, Regular Rhythm GI/Abdominal Exam: Normal Bowel Sounds, Soft, Non-Tender Back Exam: Other (Tenderness noted to right side SI joint to region. Very muscular in nature.). No: Paraspinal Tenderness, Vertebral Tenderness Extremities: Normal Inspection, Normal Range of Motion, Non-Tender Wound/Incisions: Dressing Dry and Intact, No Drainage (Old drainage noted on dressing no new drainage noted.) Neurological: No New Focal Deficit Psy/Mental Status: Alert, Normal Affect, Normal Mood Sepsis Event Note - Evaluation Sepsis Screening Result: No Definite Risk - Focused Exam Vital Signs: Vital Signs Temp Pulse Resp BP BP Pulse Ox 08/10/20 09:01 165/66 H 08/10/20 09:00 91 165/66 H 08/10/20 08:00 98.4 F 14 140/56 L 96 08/10/20 07:00 13 133/47 L 96 08/10/20 06:00 13 137/56 L 94 L 08/10/20 05:00 14 112/47 L 95 08/10/20 04:00 97.1 F 14 160/67 H 94 L 08/10/20 03:00 15 153/57 H 98 08/10/20 02:00 17 139/62 95 08/10/20 01:00 13 108/51 L 96 08/10/20 00:00 96.8 F L 15 139/58 L 94 L 08/09/20 23:00 14 126/53 L 94 L 08/09/20 22:00 13 121/68 97 - Problem List & Annotations (1) Hyponatremia SNOMED Code(s): 72879248 Code(s): E87.1 - HYPO-OSMOLALITY AND HYPONATREMIA Status: Acute Current Visit: Yes (2) Hypertension SNOMED Code(s): 92432307 Code(s): I10 - ESSENTIAL (PRIMARY) HYPERTENSION Status: Acute Current Visit: Yes (3) COPD (chronic obstructive pulmonary disease) SNOMED Code(s): 30363870 Code(s): J44.9 - CHRONIC OBSTRUCTIVE PULMONARY DISEASE, UNSPECIFIED Status: Acute Current Visit: Yes (4) Fall SNOMED Code(s): 4590326, 580533754 Code(s): W19.XXXA - UNSPECIFIED FALL, INITIAL ENCOUNTER Status: Acute Current Visit: Yes (5) Dizziness SNOMED Code(s): 012794345, 381357634 Code(s): R42 - DIZZINESS AND GIDDINESS Status: Acute Current Visit: Yes (6) Wound dehiscence, surgical SNOMED Code(s): 618122375 Code(s): T81.31XA - DISRUPTION OF EXTERNAL OPERATION (SURGICAL) WOUND, NEC, INIT Status: Acute Current Visit: Yes Qualifiers: Encounter type: initial encounter Qualified Code(s): T81.31XA - Disruption of external operation (surgical) wound, not elsewhere classified, initial encounter (7) CAP (community acquired pneumonia) SNOMED Code(s): 902401634 Code(s): J18.9 - PNEUMONIA, UNSPECIFIED ORGANISM Status: Acute Current Visit: Yes - Problem List Review Problem List Initiated/Reviewed/Updated: Yes - My Orders Last 24 Hours: My Active Orders 08/09/20 10:16 Heat Therapy [OM.PC] Routine Ice Therapy [OM.PC] Routine 08/10/20 08:30 BMP [BASIC METABOLIC PANEL,BMP] [CHEM] Q4H 08/10/20 09:03 Cardiac Monitoring [RC] . DIRECTED 08/10/20 Lunch Regular Diet [DIET] 08/10/20 12:30 BMP [BASIC METABOLIC PANEL,BMP] [CHEM] Q4H - Plan Plan:: This 79-year-old male admitted with significant hyponatremia 1. Hyponatremia -Repeat sodium this morning 122 -Continue Savage for strict I's and O's -eICU increased normal saline to 150 overnight overnight. -Continue to repeat BMPs every 4 hours until sodium stable -Goal of correction to be 130 in the next 24 hours -Appreciate eICU's monitoring and recommendations -Echo returned with no apparent CHF noted. Hyponatremia likely secondary to pneumonia as well as home use of hydrochlorothiazide. 2. Possible CAP: -Noted on chest CT -Continue Levaquin 750 IV daily -Continues to deny cough or fevers or any shortness of breath. 3. Left hip wound dehiscence -Malcom wound VAC intact we will continue to monitor 4. Peripheral edema -Good improvement since yesterday. -Echo shows no signs of CHF. EF 60 to 65% 5. HTN/CAD -Continue lisinopril and metoprolol - Plavix and aspirin -Hemoglobin 8.5 today likely secondary to dilutional effect. Baseline appears to be high 8-9 from previous labs. 6. COPD -Monitor -DuoNebs as needed dyspnea 7. Chronic back pain -Has worsened since fall prior to admission -X-rays of thoracic and lumbar spine obtained yesterday no acute osseous findings. Significant degenerative changes throughout. VTE prophylaxis: Heparin CODE STATUS: Full code Dispo: 2 to 3 days pending improvement. Well after to [facility] floor telemetry needed.
[2020-08-10 09:46] LABS: BLOOD UREA NITROGEN,BUN 14 mg/dL (7.0-18.0); CARBON DIOXIDE,CO2 24.5 mmol/L (21.0-32.0); CHLORIDE,CL 96 mmol/L (98-107); GLUCOSE RANDOM 107 mg/dL (74-106); POTASSIUM,K 4.6 mmol/L (3.5-5.1); SODIUM,NA 125 mmol/L (136-148)
[2020-08-10] MEDS: Levofloxacin/Dextrose 5%-Water 750 MG in Premix Bag 1 BAG IV SCH (13:33)
[2020-08-10] MEDS ORDERED: Cyclobenzaprine 5 MG Tab PO ONE (14:47)
[2020-08-10 15:17] LABS: BLOOD UREA NITROGEN,BUN 15 mg/dL (7.0-18.0); CARBON DIOXIDE,CO2 23.6 mmol/L (21.0-32.0); CHLORIDE,CL 95 mmol/L (98-107); GLUCOSE RANDOM 108 mg/dL (74-106); SODIUM,NA 125 mmol/L (136-148)
[2020-08-10] MEDS: Lidocaine 5% 700 MG Patch TRDERM SCH (16:19)
[2020-08-10] MEDS ORDERED: Bisacodyl 10 MG Supp RECTAL ONE (17:04)
[2020-08-10] MEDS ORDERED: Cyclobenzaprine 5 MG Tab PO PRN (18:07)
[2020-08-10] MEDS: atorvaSTATin 40 MG Tab PO SCH (20:08)
[2020-08-10 21:26] LABS: BLOOD UREA NITROGEN,BUN 14 mg/dL (7.0-18.0); CARBON DIOXIDE,CO2 23.6 mmol/L (21.0-32.0); CHLORIDE,CL 97 mmol/L (98-107); GLUCOSE RANDOM 110 mg/dL (74-106); POTASSIUM,K 3.7 mmol/L (3.5-5.1); SODIUM,NA 127 mmol/L (136-148)
[2020-08-11] MEDS: Sodium Chloride 0.9% 1,000 ML IV SCH ×4 (02:52→22:46)
[2020-08-11 02:54] LABS: BLOOD UREA NITROGEN,BUN 13 mg/dL (7.0-18.0); CARBON DIOXIDE,CO2 21.5 mmol/L (21.0-32.0); CHLORIDE,CL 98 mmol/L (98-107); GLUCOSE RANDOM 97 mg/dL (74-106); POTASSIUM,K 4.1 mmol/L (3.5-5.1); SODIUM,NA 126 mmol/L (136-148)
[2020-08-11] MEDS: oxyCODONE 5 MG Tab PO PRN ×4 (04:10→20:52)
[2020-08-11] MEDS: Acetaminophen 325 MG Tab PO PRN ×3 (04:11→22:20)
[2020-08-11] MEDS: Heparin Sodium 5,000 Units/ML Vial SUBCUT SCH ×2 (04:20→17:23)
[2020-08-11] MEDS: Morphine 2 MG/ML SYRINGE IVPUSH PRN ×4 (05:11→23:22)
--- NOTE | 2020-08-11 08:19 | PCM.PN ---
- General Info Date of Service: 08/11/20 Admission Dx/Problem (Free Text): Admission Diagnosis/Problem Admission Diagnosis/Problem Hyponatremia Subjective Update: Reports he is feeling slightly better this morning. Reports he feels that oxycodone is not helping his pain. Feels the Flexeril has not worked well unsure if the lidocaine patch has helped. Denies any chest pain or shortness of breath no abdominal pain. He is constipated and is in need of having a bowel movement. Functional Status: Reports: Tolerating Diet, Ambulating, Urinating. Denies: Pain Controlled - Review of Systems General: Reports: Weakness (Generalized), Fatigue HEENT: Reports: No Symptoms. Denies: Headaches, Sore Throat, Visual Changes Pulmonary: Reports: No Symptoms. Denies: Shortness of Breath Cardiovascular: Reports: No Symptoms. Denies: Chest Pain Gastrointestinal: Reports: No Symptoms. Denies: Abdominal Pain, Nausea, Vomiting Genitourinary: Reports: No Symptoms. Denies: Dysuria, Frequency, Burning Musculoskeletal: Reports: Back Pain (Continues to have. Feels as though oxycodone is not helping) Skin: Reports: No Symptoms Neurological: Reports: No Symptoms Psychiatric: Reports: No Symptoms - Patient Data Vitals - Most Recent: Last Vital Signs Temp 98 F 08/11/20 07:11 Pulse 70 08/11/20 07:11 Resp 18 08/11/20 07:11 BP 146/67 H 08/11/20 07:11 Pulse Ox 94 L 08/11/20 07:11 Weight - Most Recent: 83.189 kg I&O - Last 24 Hours: Intake & Output 08/10/20 08/11/20 08/11/20 22:59 06:59 14:59 Intake Total 2500 Output Total 900 1000 Balance 1600 -1000 Lab Results Last 24 Hours: Laboratory Results - last 24 hr 08/10/20 08/10/20 08/10/20 Range/Units 09:00 14:40 21:02 Sodium 125 L 125 L 127 L (136-148) mmol/L Potassium 4.6 4.0 3.7 (3.5-5.1) mmol/L Chloride 96 L 95 L 97 L (98-107) mmol/L Carbon Dioxide 24.5 23.6 23.6 (21.0-32.0) mmol/L BUN 14 15 14 (7.0-18.0) mg/dL Creatinine 1.1 1.1 1.1 (0.8-1.3) mg/dL Est Cr Clr Drug Dosing 62.55 62.55 62.55 mL/min Estimated GFR (MDRD) > 60.0 > 60.0 > 60.0 ml/min Glucose 107 H 108 H 110 H (74-106) mg/dL Calcium 7.7 L 7.6 L 7.4 L (8.5-10.1) mg/dL 08/11/20 Range/Units 02:30 Sodium 126 L (136-148) mmol/L Potassium 4.1 (3.5-5.1) mmol/L Chloride 98 (98-107) mmol/L Carbon Dioxide 21.5 (21.0-32.0) mmol/L BUN 13 (7.0-18.0) mg/dL Creatinine 1.0 (0.8-1.3) mg/dL Est Cr Clr Drug Dosing 68.80 mL/min Estimated GFR (MDRD) > 60.0 ml/min Glucose 97 (74-106) mg/dL Calcium 7.5 L (8.5-10.1) mg/dL Med Orders - Current: Current Medications Acetaminophen (Tylenol) 650 mg PO Q4H PRN PRN Reason: Pain (Mild 1-3)/fever Last Admin: 08/11/20 04:11 Dose: 650 mg Documented by: Aspirin (Aspirin) 81 mg PO DAILY [facility] Last Admin: 08/10/20 08:59 Dose: 81 mg Documented by: Atorvastatin Calcium (Lipitor) 40 mg PO BEDTIME [facility] Last Admin: 08/10/20 20:08 Dose: 40 mg Documented by: Bisacodyl (Dulcolax) 10 mg RECTAL DAILY PRN PRN Reason: Constipation Clopidogrel Bisulfate (Plavix) 75 mg PO DAILY [facility] Last Admin: 08/10/20 09:01 Dose: 75 mg Documented by: Cyclobenzaprine HCl (Flexeril) 10 mg PO TID PRN PRN Reason: Spasms Heparin Sodium (Porcine) (Heparin Sodium) 5,000 units SUBCUT Q12H [facility] Last Admin: 08/11/20 04:20 Dose: 5,000 units Documented by: Levofloxacin/Dextrose 750 mg/ (Premix) 150 mls @ 100 mls/hr IV Q24H [facility] Last Admin: 08/10/20 13:33 Dose: 100 mls/hr Documented by: Sodium Chloride (Normal Saline) 1,000 mls @ 100 mls/hr IV ASDIRECTED [facility] Last Admin: 08/11/20 02:52 Dose: 150 mls/hr Documented by: Lidocaine (Lidoderm 5%) 700 mg TRDERM Q24H [facility] Last Admin: 08/10/20 16:19 Dose: 700 mg Documented by: Lisinopril (Prinivil) 10 mg PO DAILY [facility] Last Admin: 08/10/20 09:01 Dose: 10 mg Documented by: Metoprolol Tartrate (Lopressor) 25 mg PO BID [facility] Last Admin: 08/10/20 20:08 Dose: 25 mg Documented by: Miscellaneous Information (Remove Patch) 1 ea TRDERM DAILY@0400 [facility] Last Admin: 08/11/20 04:19 Dose: Not Given Documented by: Morphine Sulfate (Morphine) 2 mg IVPUSH Q4H PRN PRN Reason: Pain Last Admin: 08/11/20 05:11 Dose: 2 mg Documented by: Ondansetron HCl (Zofran) 4 mg IVPUSH Q4H PRN PRN Reason: Nausea/Vomiting Last Admin: 08/07/20 05:13 Dose: 4 mg Documented by: Oxycodone HCl (Oxycodone) 10 mg PO QID PRN PRN Reason: Pain Last Admin: 08/11/20 04:10 Dose: 10 mg Documented by: Senna/Docusate Sodium (Senna Plus) 1 tab PO DAILY [facility] Discontinued Medications Bisacodyl (Dulcolax) 10 mg RECTAL ONETIME ONE Stop: 08/10/20 17:05 Last Admin: 08/10/20 19:01 Dose: Not Given Documented by: Cyclobenzaprine HCl (Flexeril) 5 mg PO ONETIME ONE Stop: 08/07/20 15:50 Last Admin: 08/07/20 15:59 Dose: 5 mg Documented by: Cyclobenzaprine HCl (Flexeril) 5 mg PO TID PRN PRN Reason: Spasms Last Admin: 08/10/20 12:11 Dose: 5 mg Documented by: Cyclobenzaprine HCl (Flexeril) 5 mg PO ONETIME ONE Stop: 08/10/20 14:48 Last Admin: 08/10/20 14:58 Dose: 5 mg Documented by: Cyclobenzaprine HCl (Flexeril) 10 mg PO TID PRN PRN Reason: Spasms Last Admin: 08/11/20 00:17 Dose: 10 mg Documented by: Docusate Sodium (Colace) 100 mg PO BID [facility] Last Admin: 08/10/20 20:09 Dose: 100 mg Documented by: Furosemide (Lasix) 40 mg IVPUSH NOW ONE Stop: 08/07/20 10:04 Last Admin: 08/07/20 11:04 Dose: 40 mg Documented by: Furosemide (Lasix) 20 mg IVPUSH NOW ONE Stop: 08/07/20 13:56 Last Admin: 08/07/20 14:40 Dose: 20 mg Documented by: Furosemide (Lasix) 40 mg IVPUSH DAILY [facility] Last Admin: 08/08/20 13:33 Dose: 40 mg Documented by: Sodium Chloride (Normal Saline) 1,000 mls @ 999 mls/hr IV ASDIRECTED [facility] Last Admin: 08/07/20 02:07 Dose: 999 mls/hr Documented by: Sodium Chloride (Normal Saline) 1,000 mls @ 150 mls/hr IV ASDIRECTED [facility] Last Admin: 08/07/20 05:13 Dose: 150 mls/hr Documented by: Potassium Chloride 20 meq/ (Premix) 50 mls @ 25 mls/hr IV ONETIME ONE Stop: 08/08/20 23:28 Last Admin: 08/08/20 21:55 Dose: 25 mls/hr Documented by: Magnesium Sulfate (Magnesium Sulfate In Water Premix) 2 gm in 50 mls @ 50 mls/hr IV ONETIME ONE Stop: 08/09/20 10:13 Last Admin: 08/09/20 09:58 Dose: 50 mls/hr Documented by: Potassium Chloride 40 meq/ (Premix) 100 mls @ 25 mls/hr IV ONETIME ONE Stop: 08/10/20 01:57 Last Admin: 08/09/20 22:11 Dose: 25 mls/hr Documented by: Metoclopramide HCl (Reglan) 5 mg IVPUSH ONETIME ONE Stop: 08/07/20 00:57 Last Admin: 08/07/20 01:01 Dose: 5 mg Documented by: Morphine Sulfate (Morphine) 4 mg IVPUSH ONETIME ONE Stop: 08/07/20 00:12 Last Admin: 08/07/20 00:58 Dose: 4 mg Documented by: Morphine Sulfate (Morphine) Confirm Administered Dose 4 mg .ROUTE .STK-MED ONE Stop: 08/07/20 00:12 Last Admin: 08/07/20 01:03 Dose: Not Given Documented by: Morphine Sulfate (Morphine) 4 mg IVPUSH ONETIME ONE Stop: 08/07/20 00:13 Last Admin: 08/07/20 01:05 Dose: 4 mg Documented by: Morphine Sulfate (Morphine) 4 mg IVPUSH ONETIME ONE Stop: 08/07/20 01:58 Last Admin: 08/07/20 02:07 Dose: 4 mg Documented by: Morphine Sulfate (Morphine) Confirm Administered Dose 4 mg .ROUTE .STK-MED ONE Stop: 08/07/20 02:04 Last Admin: 08/07/20 02:21 Dose: Not Given Documented by: Ondansetron HCl (Zofran) 4 mg IVPUSH ONETIME ONE Stop: 08/07/20 00:16 Last Admin: 08/07/20 00:58 Dose: 4 mg Documented by: Potassium Chloride (Klor-Con M20) 40 meq PO ONETIME ONE Stop: 08/07/20 20:00 Last Admin: 08/07/20 20:23 Dose: 40 meq Documented by: Potassium Chloride (Klor-Con M20) 40 meq PO ONETIME ONE Stop: 08/08/20 17:32 Last Admin: 08/08/20 19:47 Dose: 40 meq Documented by: - Exam General: Alert, Oriented, Cooperative, No Acute Distress, Other (Sitting on edge of bed appears very comfortable. Much more alert than previous day) Lungs: Clear to Auscultation, Normal Respiratory Effort Cardiovascular: Regular Rate, Regular Rhythm GI/Abdominal Exam: Normal Bowel Sounds, Soft, Non-Tender Back Exam: Normal Inspection, Full Range of Motion Extremities: Normal Inspection, Normal Range of Motion, Non-Tender, No Pedal Edema Wound/Incisions: Healing Well, Dressing Dry and Intact (no new drainage) Neurological: No New Focal Deficit Psy/Mental Status: Alert, Normal Affect, Normal Mood Sepsis Event Note - Evaluation Sepsis Screening Result: No Definite Risk - Focused Exam Vital Signs: Vital Signs Temp Pulse Resp BP Pulse Ox 08/11/20 07:11 98 F 70 18 146/67 H 94 L 08/11/20 04:00 98.2 F 83 18 149/66 H 95 08/11/20 00:17 97.6 F 77 16 131/77 96 - Problem List & Annotations (1) Hyponatremia SNOMED Code(s): 84355182 Code(s): E87.1 - HYPO-OSMOLALITY AND HYPONATREMIA Status: Acute Current Visit: Yes (2) Hypertension SNOMED Code(s): 95604056 Code(s): I10 - ESSENTIAL (PRIMARY) HYPERTENSION Status: Acute Current Visit: Yes (3) COPD (chronic obstructive pulmonary disease) SNOMED Code(s): 58930730 Code(s): J44.9 - CHRONIC OBSTRUCTIVE PULMONARY DISEASE, UNSPECIFIED Status: Acute Current Visit: Yes (4) Fall SNOMED Code(s): 9803949, 798670326 Code(s): W19.XXXA - UNSPECIFIED FALL, INITIAL ENCOUNTER Status: Acute Current Visit: Yes (5) Dizziness SNOMED Code(s): 771244518, 593109427 Code(s): R42 - DIZZINESS AND GIDDINESS Status: Acute Current Visit: Yes (6) Wound dehiscence, surgical SNOMED Code(s): 859789310 Code(s): T81.31XA - DISRUPTION OF EXTERNAL OPERATION (SURGICAL) WOUND, NEC, INIT Status: Acute Current Visit: Yes Qualifiers: Encounter type: initial encounter Qualified Code(s): T81.31XA - Disruption of external operation (surgical) wound, not elsewhere classified, initial encounter (7) CAP (community acquired pneumonia) SNOMED Code(s): 533816897 Code(s): J18.9 - PNEUMONIA, UNSPECIFIED ORGANISM Status: Acute Current Visit: Yes - Problem List Review Problem List Initiated/Reviewed/Updated: Yes - My Orders Last 24 Hours: My Active Orders 08/10/20 Lunch Regular Diet [DIET] 08/10/20 12:14 Transfer Patient (Change bed) [ADT] Routine 08/10/20 16:00 Lidocaine 5% [Lidoderm 5%] 700 mg TRDERM Q24H 08/11/20 04:00 Remove Patch 1 ea TRDERM DAILY@0400 08/11/20 08:00 Cyclobenzaprine [Flexeril] 10 mg PO TID PRN 08/11/20 08:30 BMP [BASIC METABOLIC PANEL,BMP] [CHEM] Q6H CBC WITH AUTO DIFF [HEME] Routine MG [MAGNESIUM] [CHEM] Routine 08/11/20 09:00 Docusate Sodium/Sennosides [Senna Plus] 1 tab PO DAILY bisacodyL [Dulcolax] 10 mg RECTAL DAILY PRN - Plan Plan:: This 79-year-old male admitted with significant hyponatremia 1. Hyponatremia -Repeat sodium this morning 129 -Remove Savage today -Decrease IV fluids today -Echo returned with no apparent CHF noted. Hyponatremia likely secondary to pneumonia as well as home use of hydrochlorothiazide. 2. Possible CAP: -Noted on chest CT -Continue Levaquin 750 IV daily -Continues to deny cough or fevers or any shortness of breath. 3. Left hip wound dehiscence -Malcom wound VAC intact we will continue to monitor 4. Peripheral edema -Good improvement since yesterday. -Echo shows no signs of CHF. EF 60 to 65% 5. HTN/CAD -Continue lisinopril and metoprolol - Plavix and aspirin -Hemoglobin 7.8 no signs of bleeding. -We will monitor as fluids are decreased. likely dilutional and from frequent lab draws. asymptomatic 6. COPD -Monitor -DuoNebs as needed dyspnea 7. Chronic back pain -Has worsened since fall prior to admission -Continue oxycodone which patient feels this is not helping much he is chronically taking this every 4 hours at home with Tylenol. -Increased Flexeril to 10 mg 3 times daily he reports this seems to help more. -Encouraged heat and ice therapy -Lidocaine patch added yesterday will monitor effectiveness of this. VTE prophylaxis: Heparin CODE STATUS: Full code Dispo: 2 to 3 days pending improvement.
[2020-08-11] MEDS ORDERED: Bisacodyl 10 MG Supp RECTAL PRN (09:00)
[2020-08-11 09:07] LABS: BLOOD UREA NITROGEN,BUN 11 mg/dL (7.0-18.0); CARBON DIOXIDE,CO2 21.8 mmol/L (21.0-32.0); CHLORIDE,CL 100 mmol/L (98-107); GLUCOSE RANDOM 92 mg/dL (74-106); POTASSIUM,K 3.9 mmol/L (3.5-5.1); SODIUM,NA 129 mmol/L (136-148)
[2020-08-11] MEDS: Aspirin 81 MG Tab.Chew PO SCH (09:48)
[2020-08-11] MEDS: Metoprolol Tartrate 25 MG Tab PO SCH ×2 (09:48→20:52)
[2020-08-11] MEDS: Lisinopril 10 MG Tab PO SCH (09:49)
[2020-08-11] MEDS: Clopidogrel 75 MG Tab PO SCH (09:49)
[2020-08-11] MEDS: Cyclobenzaprine 10 MG Tab PO PRN ×2 (09:50→19:42)
[2020-08-11 14:14] LABS: BLOOD UREA NITROGEN,BUN 10 mg/dL (7.0-18.0); CARBON DIOXIDE,CO2 20.5 mmol/L (21.0-32.0); CHLORIDE,CL 99 mmol/L (98-107); GLUCOSE RANDOM 114 mg/dL (74-106); POTASSIUM,K 4.1 mmol/L (3.5-5.1); SODIUM,NA 129 mmol/L (136-148)
[2020-08-11] MEDS: Lidocaine 5% 700 MG Patch TRDERM SCH (15:56)
[2020-08-11] MEDS ORDERED: Levofloxacin 500 MG Tab PO SCH (16:30)
[2020-08-11] MEDS: atorvaSTATin 40 MG Tab PO SCH (20:52)
[2020-08-12] MEDS: oxyCODONE 5 MG Tab PO PRN ×4 (02:03→20:46)
[2020-08-12] MEDS: Heparin Sodium 5,000 Units/ML Vial SUBCUT SCH ×2 (04:55→15:59)
[2020-08-12] MEDS: Cyclobenzaprine 10 MG Tab PO PRN ×3 (04:57→17:24)
[2020-08-12] MEDS: Morphine 2 MG/ML SYRINGE IVPUSH PRN (06:04)
[2020-08-12 07:11] LABS: BLOOD UREA NITROGEN,BUN 8 mg/dL (7.0-18.0); CARBON DIOXIDE,CO2 22.6 mmol/L (21.0-32.0); CHLORIDE,CL 101 mmol/L (98-107); GLUCOSE RANDOM 92 mg/dL (74-106); POTASSIUM,K 4.3 mmol/L (3.5-5.1); SODIUM,NA 134 mmol/L (136-148)
[2020-08-12] MEDS: Acetaminophen 325 MG Tab PO PRN ×3 (08:24→20:47)
[2020-08-12] MEDS: Clopidogrel 75 MG Tab PO SCH (08:25)
[2020-08-12] MEDS: Aspirin 81 MG Tab.Chew PO SCH (08:25)
[2020-08-12] MEDS: Lisinopril 10 MG Tab PO SCH (08:26)
[2020-08-12] MEDS: Metoprolol Tartrate 25 MG Tab PO SCH ×2 (08:28→20:47)
[2020-08-12] MEDS: Sodium Chloride 0.9% 1,000 ML IV SCH ×2 (08:57→17:24)
[2020-08-12] MEDS ORDERED: Polyethylene Glycol 3350 Powder 17 GM Packet PO ONE (09:26)
--- NOTE | 2020-08-12 13:31 | PCM.PN ---
- General Info Date of Service: 08/12/20 Admission Dx/Problem (Free Text): Admission Diagnosis/Problem Admission Diagnosis/Problem Hyponatremia Subjective Update: Reports he is still having pain in his hip, states he feels much better over all but pain is bothering him, Denies any chest pain or shortness of breath no abdominal pain. - Review of Systems General: Denies: Fever, Weakness, Fatigue Pulmonary: Denies: Shortness of Breath, Pleuritic Chest Pain Cardiovascular: Denies: Chest Pain, Palpitations Gastrointestinal: Reports: Constipation. Denies: Abdominal Pain, Decreased Appetite Genitourinary: Denies: Dysuria, Frequency, Burning, Pain, Urgency Musculoskeletal: Denies: Neck Pain, Shoulder Pain, Arm Pain, Hand Pain Skin: Denies: Cyanosis, Jaundice, Mottled - Patient Data Vitals - Most Recent: Last Vital Signs Temp 36.7 C 08/12/20 07:35 Pulse 84 08/12/20 08:28 Resp 16 08/12/20 07:35 BP 164/72 H 08/12/20 08:28 Pulse Ox 95 08/12/20 07:35 Weight - Most Recent: 77.621 kg I&O - Last 24 Hours: Intake & Output 08/11/20 08/12/20 08/12/20 22:59 06:59 14:59 Intake Total 1130 1716 Output Total 1420 700 Balance -290 1016 Lab Results Last 24 Hours: Laboratory Results - last 24 hr 08/11/20 08/11/20 08/11/20 Range/Units 13:42 13:42 19:30 WBC (4.0-11.0) K/uL RBC (4.50-5.90) M/uL Hgb 9.7 L (13.0-17.0) g/dL Hct 29.4 L (38.0-50.0) % MCV (80.0-98.0) fL MCH (27.0-32.0) pg MCHC (31.0-37.0) g/dL RDW Std Deviation (28.0-62.0) fl RDW Coeff of Kavitha (11.0-15.0) % Plt Count (150-400) K/uL MPV (7.40-12.00) fL Neut % (Auto) (48.0-80.0) % Lymph % (Auto) (16.0-40.0) % [place] % (Auto) (0.0-15.0) % Eos % (Auto) (0.0-7.0) % Baso % (Auto) (0.0-1.5) % Neut # (Auto) (1.4-5.7) K/uL Lymph # (Auto) (0.6-2.4) K/uL [place] # (Auto) (0.0-0.8) K/uL Eos # (Auto) (0.0-0.7) K/uL Baso # (Auto) (0.0-0.1) K/uL Nucleated RBC % /100WBC Nucleated RBCs # K/uL Sodium 129 L (136-148) mmol/L Potassium 4.1 (3.5-5.1) mmol/L Chloride 99 (98-107) mmol/L Carbon Dioxide 20.5 L (21.0-32.0) mmol/L BUN 10 (7.0-18.0) mg/dL Creatinine 1.0 (0.8-1.3) mg/dL Est Cr Clr Drug Dosing 66.84 mL/min Estimated GFR (MDRD) > 60.0 ml/min Glucose 114 H (74-106) mg/dL Calcium 8.2 L (8.5-10.1) mg/dL Blood Type O POSITIVE Antibody Screen NEGATIVE Crossmatch See Detail 08/12/20 08/12/20 Range/Units 06:48 06:48 WBC 5.21 (4.0-11.0) K/uL RBC 3.28 L (4.50-5.90) M/uL Hgb 9.7 L (13.0-17.0) g/dL Hct 30.2 L (38.0-50.0) % MCV 92.1 (80.0-98.0) fL MCH 29.6 (27.0-32.0) pg MCHC 32.1 (31.0-37.0) g/dL RDW Std Deviation 52.6 (28.0-62.0) fl RDW Coeff of Kavitha 16 H (11.0-15.0) % Plt Count 230 (150-400) K/uL MPV 8.70 (7.40-12.00) fL Neut % (Auto) 64.0 (48.0-80.0) % Lymph % (Auto) 15.4 L (16.0-40.0) % [place] % (Auto) 12.5 (0.0-15.0) % Eos % (Auto) 7.1 H (0.0-7.0) % Baso % (Auto) 1.0 (0.0-1.5) % Neut # (Auto) 3.3 (1.4-5.7) K/uL Lymph # (Auto) 0.8 (0.6-2.4) K/uL [place] # (Auto) 0.7 (0.0-0.8) K/uL Eos # (Auto) 0.4 (0.0-0.7) K/uL Baso # (Auto) 0.1 (0.0-0.1) K/uL Nucleated RBC % 0.0 /100WBC Nucleated RBCs # 0 K/uL Sodium 134 L (136-148) mmol/L Potassium 4.3 (3.5-5.1) mmol/L Chloride 101 (98-107) mmol/L Carbon Dioxide 22.6 (21.0-32.0) mmol/L BUN 8 (7.0-18.0) mg/dL Creatinine 1.0 (0.8-1.3) mg/dL Est Cr Clr Drug Dosing 66.84 mL/min Estimated GFR (MDRD) > 60.0 ml/min Glucose 92 (74-106) mg/dL Calcium 8.6 (8.5-10.1) mg/dL Blood Type Antibody Screen Crossmatch Med Orders - Current: Current Medications Acetaminophen (Tylenol) 650 mg PO Q4H PRN PRN Reason: Pain (Mild 1-3)/fever Last Admin: 08/12/20 13:21 Dose: 650 mg Documented by: Aspirin (Aspirin) 81 mg PO DAILY [facility] Last Admin: 08/12/20 08:25 Dose: 81 mg Documented by: Atorvastatin Calcium (Lipitor) 40 mg PO BEDTIME [facility] Last Admin: 08/11/20 20:52 Dose: 40 mg Documented by: Bisacodyl (Dulcolax) 10 mg RECTAL DAILY PRN PRN Reason: Constipation Clopidogrel Bisulfate (Plavix) 75 mg PO DAILY [facility] Last Admin: 08/12/20 08:25 Dose: 75 mg Documented by: Cyclobenzaprine HCl (Flexeril) 10 mg PO TID PRN PRN Reason: Spasms Last Admin: 08/12/20 11:42 Dose: 10 mg Documented by: Heparin Sodium (Porcine) (Heparin Sodium) 5,000 units SUBCUT Q12H [facility] Last Admin: 08/12/20 04:55 Dose: 5,000 units Documented by: Sodium Chloride (Normal Saline) 1,000 mls @ 100 mls/hr IV Q10H [facility] Last Admin: 08/12/20 08:57 Dose: 100 mls/hr Documented by: Levofloxacin (Levaquin) 750 mg PO Q24H [facility] Lidocaine (Lidoderm 5%) 700 mg TRDERM Q24H [facility] Last Admin: 08/11/20 15:56 Dose: 700 mg Documented by: Lisinopril (Prinivil) 10 mg PO DAILY [facility] Last Admin: 08/12/20 08:26 Dose: 10 mg Documented by: Metoprolol Tartrate (Lopressor) 25 mg PO BID [facility] Last Admin: 08/12/20 08:28 Dose: 25 mg Documented by: Miscellaneous Information (Remove Patch) 1 ea TRDERM DAILY@0400 [facility] Last Admin: 08/12/20 04:55 Dose: Not Given Documented by: Morphine Sulfate (Morphine) 2 mg IVPUSH Q4H PRN PRN Reason: Pain Last Admin: 08/12/20 06:04 Dose: 2 mg Documented by: Ondansetron HCl (Zofran) 4 mg IVPUSH Q4H PRN PRN Reason: Nausea/Vomiting Last Admin: 08/07/20 05:13 Dose: 4 mg Documented by: Oxycodone HCl (Oxycodone) 10 mg PO Q4H PRN PRN Reason: Pain Last Admin: 08/12/20 13:20 Dose: 10 mg Documented by: Polyethylene Glycol (Miralax) 17 gm PO BEDTIME PRN PRN Reason: Constipation Senna/Docusate Sodium (Senna Plus) 1 tab PO DAILY [facility] Last Admin: 08/12/20 08:26 Dose: 1 tab Documented by: Discontinued Medications Bisacodyl (Dulcolax) 10 mg RECTAL ONETIME ONE Stop: 08/10/20 17:05 Last Admin: 08/10/20 19:01 Dose: Not Given Documented by: Cyclobenzaprine HCl (Flexeril) 5 mg PO ONETIME ONE Stop: 08/07/20 15:50 Last Admin: 08/07/20 15:59 Dose: 5 mg Documented by: Cyclobenzaprine HCl (Flexeril) 5 mg PO TID PRN PRN Reason: Spasms Last Admin: 08/10/20 12:11 Dose: 5 mg Documented by: Cyclobenzaprine HCl (Flexeril) 5 mg PO ONETIME ONE Stop: 08/10/20 14:48 Last Admin: 08/10/20 14:58 Dose: 5 mg Documented by: Cyclobenzaprine HCl (Flexeril) 10 mg PO TID PRN PRN Reason: Spasms Last Admin: 08/11/20 00:17 Dose: 10 mg Documented by: Docusate Sodium (Colace) 100 mg PO BID [facility] Last Admin: 08/10/20 20:09 Dose: 100 mg Documented by: Furosemide (Lasix) 40 mg IVPUSH NOW ONE Stop: 08/07/20 10:04 Last Admin: 08/07/20 11:04 Dose: 40 mg Documented by: Furosemide (Lasix) 20 mg IVPUSH NOW ONE Stop: 08/07/20 13:56 Last Admin: 08/07/20 14:40 Dose: 20 mg Documented by: Furosemide (Lasix) 40 mg IVPUSH DAILY [facility] Last Admin: 08/08/20 13:33 Dose: 40 mg Documented by: Sodium Chloride (Normal Saline) 1,000 mls @ 999 mls/hr IV ASDIRECTED [facility] Last Admin: 08/07/20 02:07 Dose: 999 mls/hr Documented by: Sodium Chloride (Normal Saline) 1,000 mls @ 150 mls/hr IV ASDIRECTED [facility] Last Admin: 08/07/20 05:13 Dose: 150 mls/hr Documented by: Levofloxacin/Dextrose 750 mg/ (Premix) 150 mls @ 100 mls/hr IV Q24H [facility] Last Admin: 08/10/20 13:33 Dose: 100 mls/hr Documented by: Sodium Chloride (Normal Saline) 1,000 mls @ 100 mls/hr IV ASDIRECTED [facility] Last Admin: 08/11/20 09:33 Dose: 150 mls/hr Documented by: Potassium Chloride 20 meq/ (Premix) 50 mls @ 25 mls/hr IV ONETIME ONE Stop: 08/08/20 23:28 Last Admin: 08/08/20 21:55 Dose: 25 mls/hr Documented by: Magnesium Sulfate (Magnesium Sulfate In Water Premix) 2 gm in 50 mls @ 50 mls/hr IV ONETIME ONE Stop: 08/09/20 10:13 Last Admin: 08/09/20 09:58 Dose: 50 mls/hr Documented by: Potassium Chloride 40 meq/ (Premix) 100 mls @ 25 mls/hr IV ONETIME ONE Stop: 08/10/20 01:57 Last Admin: 08/09/20 22:11 Dose: 25 mls/hr Documented by: Levofloxacin (Levaquin) 750 mg PO Q24H [facility] Last Admin: 08/11/20 17:23 Dose: 750 mg Documented by: Metoclopramide HCl (Reglan) 5 mg IVPUSH ONETIME ONE Stop: 08/07/20 00:57 Last Admin: 08/07/20 01:01 Dose: 5 mg Documented by: Morphine Sulfate (Morphine) 4 mg IVPUSH ONETIME ONE Stop: 08/07/20 00:12 Last Admin: 08/07/20 00:58 Dose: 4 mg Documented by: Morphine Sulfate (Morphine) Confirm Administered Dose 4 mg .ROUTE .STK-MED ONE Stop: 08/07/20 00:12 Last Admin: 08/07/20 01:03 Dose: Not Given Documented by: Morphine Sulfate (Morphine) 4 mg IVPUSH ONETIME ONE Stop: 08/07/20 00:13 Last Admin: 08/07/20 01:05 Dose: 4 mg Documented by: Morphine Sulfate (Morphine) 4 mg IVPUSH ONETIME ONE Stop: 08/07/20 01:58 Last Admin: 08/07/20 02:07 Dose: 4 mg Documented by: Morphine Sulfate (Morphine) Confirm Administered Dose 4 mg .ROUTE .STK-MED ONE Stop: 08/07/20 02:04 Last Admin: 08/07/20 02:21 Dose: Not Given Documented by: Ondansetron HCl (Zofran) 4 mg IVPUSH ONETIME ONE Stop: 08/07/20 00:16 Last Admin: 08/07/20 00:58 Dose: 4 mg Documented by: Oxycodone HCl (Oxycodone) 10 mg PO QID PRN PRN Reason: Pain Last Admin: 08/11/20 04:10 Dose: 10 mg Documented by: Polyethylene Glycol (Miralax) 17 gm PO BID ONE Stop: 08/12/20 09:27 Last Admin: 08/12/20 09:50 Dose: 17 gm Documented by: Potassium Chloride (Klor-Con M20) 40 meq PO ONETIME ONE Stop: 08/07/20 20:00 Last Admin: 08/07/20 20:23 Dose: 40 meq Documented by: Potassium Chloride (Klor-Con M20) 40 meq PO ONETIME ONE Stop: 08/08/20 17:32 Last Admin: 08/08/20 19:47 Dose: 40 meq Documented by: - Exam General: Alert, Oriented Lungs: Clear to Auscultation, Normal Respiratory Effort Cardiovascular: Regular Rate, Regular Rhythm GI/Abdominal Exam: Normal Bowel Sounds, Soft, Non-Tender Extremities: Normal Inspection, Leg Pain, Other (wound is ). No: Normal Range of Motion Peripheral Pulses: 3+: Dorsalis Pedis (L), Dorsalis Pedis (R) Wound/Incisions: Healing Well, Dressing Dry and Intact, No Drainage Sepsis Event Note - Evaluation Sepsis Screening Result: No Definite Risk - Focused Exam Vital Signs: Vital Signs Temp Pulse Pulse Resp BP BP Pulse Ox 08/12/20 08:28 84 164/72 H 08/12/20 08:26 164/72 H 08/12/20 07:35 36.7 C 78 16 168/73 H 95 08/12/20 03:00 37.0 C 63 16 123/60 95 - Problem List & Annotations (1) CAP (community acquired pneumonia) SNOMED Code(s): 719738227 Code(s): J18.9 - PNEUMONIA, UNSPECIFIED ORGANISM Status: Acute Current Visit: Yes (2) COPD (chronic obstructive pulmonary disease) SNOMED Code(s): 50596207 Code(s): J44.9 - CHRONIC OBSTRUCTIVE PULMONARY DISEASE, UNSPECIFIED Status: Acute Current Visit: Yes (3) Hypertension SNOMED Code(s): 43542410 Code(s): I10 - ESSENTIAL (PRIMARY) HYPERTENSION Status: Acute Current Visit: Yes (4) Hyponatremia SNOMED Code(s): 46390926 Code(s): E87.1 - HYPO-OSMOLALITY AND HYPONATREMIA Status: Acute Current Visit: Yes (5) Wound dehiscence, surgical SNOMED Code(s): 408254312 Code(s): T81.31XA - DISRUPTION OF EXTERNAL OPERATION (SURGICAL) WOUND, NEC, INIT Status: Acute Current Visit: Yes Qualifiers: Encounter type: initial encounter Qualified Code(s): T81.31XA - Disruption of external operation (surgical) wound, not elsewhere classified, initial encounter (6) Closed fracture of acetabulum, hip SNOMED Code(s): 29209510 Code(s): S32.409A - UNSP FRACTURE OF UNSP ACETABULUM, INIT FOR CLOS FX Status: Acute Current Visit: No - Problem List Review Problem List Initiated/Reviewed/Updated: Yes - Plan Plan:: This 79-year-old male admitted with significant hyponatremia 1. Hyponatremia -Improving -d/c IV fluids today -Echo returned with no apparent CHF noted. Hyponatremia likely secondary to pneumonia as well as home use of hydrochlorothiazide. 2. Possible CAP: -Noted on chest CT -Continue Levaquin 750 IV daily -Continues to deny cough or fevers or any shortness of breath. 3. Left hip wound dehiscence -Malcom wound VAC intact we will continue to monitor, ortho will reevaluate his wound today 4. Peripheral edema -Good improvement since yesterday. -Echo shows no signs of CHF. EF 60 to 65% 5. HTN/CAD -Continue lisinopril and metoprolol - Plavix and aspirin -Hemoglobin 7.8 no signs of bleeding. -We will monitor as fluids are decreased. likely dilutional and from frequent lab draws. asymptomatic 6. COPD -Monitor -DuoNebs as needed dyspnea 7. Chronic back pain -Has worsened since fall prior to admission -Continue oxycodone which patient feels this is not helping much he is chronically taking this every 4 hours at home with Tylenol. -Increased Flexeril to 10 mg 3 times daily he reports this seems to help more. -Encouraged heat and ice therapy -Lidocaine patch added yesterday will monitor effectiveness of this. -cont PT VTE prophylaxis: Heparin CODE STATUS: Full code Dispo:1- 2 days
[2020-08-12] MEDS ORDERED: Furosemide 40 MG Tab PO PRN (14:03)
--- NOTE | 2020-08-12 15:00 | PCM.SN.2 ---
- Free Text/Narrative Note: Ortho Note Patient admitted with hyponatremia and minor MIAN incision dehiscence. Air leak so UMA dressing change today. I was able to evaluate wound personally. 2.5 cm length with approx 3 mm gap, granulating bed without significant drainage, no erythema. New UMA applied with vacuum seal. Recommend F/U with Dr. King next week on .
[2020-08-12] MEDS: Lidocaine 5% 700 MG Patch TRDERM SCH (15:59)
[2020-08-12] MEDS: Levofloxacin 250 MG Tab PO SCH (16:00)
[2020-08-12] MEDS: atorvaSTATin 40 MG Tab PO SCH (20:48)
[2020-08-13] MEDS: Cyclobenzaprine 10 MG Tab PO PRN ×2 (01:52→10:06)
[2020-08-13] MEDS: Acetaminophen 325 MG Tab PO PRN (02:43)
[2020-08-13] MEDS: oxyCODONE 5 MG Tab PO PRN ×2 (02:44→11:22)
[2020-08-13] MEDS: Heparin Sodium 5,000 Units/ML Vial SUBCUT SCH (05:00)
[2020-08-13 06:48] LABS: BLOOD UREA NITROGEN,BUN 8 mg/dL (7.0-18.0); CARBON DIOXIDE,CO2 25.1 mmol/L (21.0-32.0); CHLORIDE,CL 101 mmol/L (98-107); GLUCOSE RANDOM 91 mg/dL (74-106); POTASSIUM,K 4.1 mmol/L (3.5-5.1); SODIUM,NA 132 mmol/L (136-148)
[2020-08-13] MEDS ORDERED: Hydrochlorothiazide 12.5 MG Cap PO SCH (09:00)
[2020-08-13] MEDS: Aspirin 81 MG Tab.Chew PO SCH (09:07)
[2020-08-13] MEDS: Clopidogrel 75 MG Tab PO SCH (09:07)
[2020-08-13] MEDS: Metoprolol Tartrate 25 MG Tab PO SCH (09:08)
[2020-08-13] MEDS: Lisinopril 10 MG Tab PO SCH (09:08)
[2020-08-13 11:20] VITALS: BP 176/88; PULSE 59
--- NOTE | 2020-08-13 12:42 | PCM.DCSUM1 ---
Discharge Summary - Hospital Course HPI Initial Comments: This 79-year-old male with PMH of hypertension CAD COPD and recent left hip surgery in beginning of July presented to the ER last evening with complaints of a fall nausea and extreme dizziness. He reports that he woke up in middle of the night and had significant dizziness the next thing he knew he was on the ground. He reports he may have hit his head. He does take Plavix and aspirin secondary to CAD. He reports that he has been feeling well up until this point. Eating and drinking well. No alcohol use. No nausea vomiting or diarrhea. No chest pain or shortness of breath. No fevers or chills. Denies any abdominal pain reports mild constipation which is not abnormal for him. Reports he has been taking oxycodone at home for pain to his hip since surgery. He denies any alcohol use no recreational drug use and no smoking. He denies a [place] history of congestive heart failure. He also denies any history of significant electrolyte abnormalities in the past. In the ER hemoglobin noted to be 9.3 hematocrit 25.7 no leukocytosis. On BMP significant hyponatremia noted at 107, chloride 74, BUN 11, creatinine 1.0. Chest x-ray was negative head CT negative for any intracranial bleed. Hip x-ray showed no acute changes forearm x-ray showed mild swelling no obvious injuries. EKG normal sinus rhythm no acute ST/T wave changes no suggestions of acute ischemia. Troponin negative. Covid swab negative in the ER he was given 1 L normal saline. Vital signs were stable. He will be admitted inpatient due to hyponatremia. patient was started on IV LR, his BMP was checked q4h, his Na imporved very minimally with IV fluids, he has mild fluid overload the next day, he was transferred to ICU for close monitoring, Lasix was started for possible hypervolemic hypernatremia, with lasix his Na did improve and Hyponatremia eventually resolved to his baseline. Patient chest CT showed possible PNA so patient was started on IV antibiotics. His surgical wound had minimal dehiscence. ORTHO was consulted for this, Hb was sligtly low so patient received 1 unit PRBC. No active bleeding noted, Hb was stable after that. Patient was also started on Flexeril for his muscle spasms. Patient reccved IV morphine for hip pain,and eventful was started on his home dose of oxycodone for pain control. Patient is medically stable for dc and sent home with home health. Diagnosis: Stroke: No - Discharge Data Discharge Date: 08/13/20 Discharge Disposition: Home, Self-Care 01 Condition: Stable - Referral to Home Health Date of Face to Face Encounter: 08/14/20 Reason for Homebound Status: unsteady when walking and a fall risk, need to use walker to ambulate Primary Care Physician: PCP None Skilled Need: RN to monitor: assesment of medications, assement of wound healing. PT: strengthing due to weakness from recent hospitalization, gailt unstability, high fall risk, - Discharge Diagnosis/Problem(s) (1) CAP (community acquired pneumonia) SNOMED Code(s): 607520933 ICD Code: J18.9 - PNEUMONIA, UNSPECIFIED ORGANISM Status: Acute Current Visit: Yes (2) COPD (chronic obstructive pulmonary disease) SNOMED Code(s): 00590034 ICD Code: J44.9 - CHRONIC OBSTRUCTIVE PULMONARY DISEASE, UNSPECIFIED Status: Acute Current Visit: Yes (3) Hypertension SNOMED Code(s): 83215588 ICD Code: I10 - ESSENTIAL (PRIMARY) HYPERTENSION Status: Acute Current Visit: Yes (4) Hyponatremia SNOMED Code(s): 76659095 ICD Code: E87.1 - HYPO-OSMOLALITY AND HYPONATREMIA Status: Acute Current Visit: Yes (5) Wound dehiscence, surgical SNOMED Code(s): 561127550 ICD Code: T81.31XA - DISRUPTION OF EXTERNAL OPERATION (SURGICAL) WOUND, NEC, INIT Status: Acute Current Visit: Yes Qualifiers: Encounter type: initial encounter Qualified Code(s): T81.31XA - Disruption of external operation (surgical) wound, not elsewhere classified, initial encounter (6) Closed fracture of acetabulum, hip SNOMED Code(s): 68495905 ICD Code: S32.409A - UNSP FRACTURE OF UNSP ACETABULUM, INIT FOR CLOS FX Status: Acute Current Visit: No - Patient Summary/Data Consults: Consultations 08/07/20 11:52 Consult to Physician [CONS] Routine 08/08/20 10:56 PT Evaluation and Treatment [CONS] Routine - Discharge Plan *PRESCRIPTION DRUG MONITORING PROGRAM REVIEWED*: Not Applicable *COPY OF PRESCRIPTION DRUG MONITORING REPORT IN PATIENT SANDRA: Not Applicable Prescriptions/Med Rec: bisacodyL [Dulcolax] 10 mg RECTAL DAILY PRN #10 supp PRN Reason: Constipation Cyclobenzaprine [Flexeril] 10 mg PO TID PRN #30 tablet PRN Reason: Spasms levoFLOXacin [Levaquin] 750 mg PO Q24H #5 tablet Lidocaine 5% [Lidoderm 5%] 700 mg TRDERM Q24H #30 patch Docusate Sodium/Sennosides [Senna Plus] 1 tab PO DAILY #30 tablet Acetaminophen [Tylenol] 650 mg PO Q4H PRN #30 tablet PRN Reason: Pain (Mild 1-3)/fever Home Medications: Home Meds Aspirin 81 mg PO BRK 08/30/17 [History] Clopidogrel Bisulfate [Clopidogrel] 75 mg PO DAILY 08/30/17 [History] Lisinopril 10 mg PO DAILY 08/30/17 [History] Metoprolol Tartrate 25 mg PO BID 08/30/17 [History] atorvaSTATin Calcium [Atorvastatin Calcium] 40 mg PO DAILY 08/30/17 [History] Furosemide 40 mg PO DAILY PRN 08/07/20 [History] hydroCHLOROthiazide [Hydrochlorothiazide] 12.5 mg PO DAILY 08/07/20 [History] oxyCODONE HCl [Oxycodone HCl] 10 mg PO QID PRN 08/07/20 [History] Acetaminophen [Tylenol] 650 mg PO Q4H PRN #30 tablet 08/13/20 [Rx] Cyclobenzaprine [Flexeril] 10 mg PO TID PRN #30 tablet 08/13/20 [Rx] Docusate Sodium/Sennosides [Senna Plus] 1 tab PO DAILY #30 tablet 08/13/20 [Rx] Lidocaine 5% [Lidoderm 5%] 700 mg TRDERM Q24H #30 patch 08/13/20 [Rx] Remove Patch 1 ea TRDERM DAILY@0400 each 08/13/20 [Rx] bisacodyL [Dulcolax] 10 mg RECTAL DAILY PRN #10 supp 08/13/20 [Rx] levoFLOXacin [Levaquin] 750 mg PO Q24H #5 tablet 08/13/20 [Rx] Patient Handouts: Cyclobenzaprine tablets, Senna tablets or capsules, Bisacodyl tablets and capsules, Acetaminophen tablets or caplets, Levofloxacin tablets, Dizziness, [id number], Lidocaine dermal patch Referrals: Alessandro Montalvo MD [Ordering Only Provider] - 08/15/20 3:15 pm Luis King DO [Physician] - - Discharge Summary/Plan Comment DC Time >30 min.: No - Patient Data Vitals - Most Recent: Last Vital Signs Temp 35.9 C L 08/13/20 11:14 Pulse 59 L 08/13/20 11:14 Resp 17 08/13/20 11:14 BP 176/88 H 08/13/20 11:14 Pulse Ox 99 08/13/20 11:14 Weight - Most Recent: 81.919 kg I&O - Last 24 hours: Intake & Output 08/12/20 08/13/20 08/13/20 22:59 06:59 14:59 Intake Total 1372 500 Output Total 750 400 Balance 622 100 Lab Results - Last 24 hrs: Laboratory Results - last 24 hr 08/13/20 08/13/20 Range/Units 05:45 05:45 WBC 6.36 (4.0-11.0) K/uL RBC 3.08 L (4.50-5.90) M/uL Hgb 9.3 L (13.0-17.0) g/dL Hct 28.5 L (38.0-50.0) % MCV 92.5 (80.0-98.0) fL MCH 30.2 (27.0-32.0) pg MCHC 32.6 (31.0-37.0) g/dL RDW Std Deviation 52.6 (28.0-62.0) fl RDW Coeff of Kavitha 16 H (11.0-15.0) % Plt Count 240 (150-400) K/uL MPV 8.80 (7.40-12.00) fL Neut % (Auto) 62.3 (48.0-80.0) % Lymph % (Auto) 19.2 (16.0-40.0) % Kay % (Auto) 11.5 (0.0-15.0) % Eos % (Auto) 6.4 (0.0-7.0) % Baso % (Auto) 0.6 (0.0-1.5) % Neut # (Auto) 4.0 (1.4-5.7) K/uL Lymph # (Auto) 1.2 (0.6-2.4) K/uL Kay # (Auto) 0.7 (0.0-0.8) K/uL Eos # (Auto) 0.4 (0.0-0.7) K/uL Baso # (Auto) 0.0 (0.0-0.1) K/uL Nucleated RBC % 0.0 /100WBC Nucleated RBCs # 0 K/uL Sodium 132 L (136-148) mmol/L Potassium 4.1 (3.5-5.1) mmol/L Chloride 101 (98-107) mmol/L Carbon Dioxide 25.1 (21.0-32.0) mmol/L BUN 8 (7.0-18.0) mg/dL Creatinine 1.0 (0.8-1.3) mg/dL Est Cr Clr Drug Dosing 66.84 mL/min Estimated GFR (MDRD) > 60.0 ml/min Glucose 91 (74-106) mg/dL Calcium 8.5 (8.5-10.1) mg/dL Phosphorus 2.9 (2.6-4.7) mg/dL Magnesium 1.8 (1.8-2.4) mg/dL Med Orders - Current: Current Medications Acetaminophen (Tylenol) 650 mg PO Q4H PRN PRN Reason: Pain (Mild 1-3)/fever Last Admin: 08/13/20 02:43 Dose: 650 mg Documented by: Aspirin (Aspirin) 81 mg PO DAILY [facility] Last Admin: 08/13/20 09:07 Dose: 81 mg Documented by: Atorvastatin Calcium (Lipitor) 40 mg PO BEDTIME [facility] Last Admin: 08/12/20 20:48 Dose: 40 mg Documented by: Bisacodyl (Dulcolax) 10 mg RECTAL DAILY PRN PRN Reason: Constipation Last Admin: 08/12/20 16:00 Dose: 10 mg Documented by: Clopidogrel Bisulfate (Plavix) 75 mg PO DAILY [facility] Last Admin: 08/13/20 09:07 Dose: 75 mg Documented by: Cyclobenzaprine HCl (Flexeril) 10 mg PO TID PRN PRN Reason: Spasms Last Admin: 08/13/20 10:06 Dose: 10 mg Documented by: Furosemide (Lasix) 40 mg PO DAILY PRN PRN Reason: swelling Last Admin: 08/13/20 10:06 Dose: 40 mg Documented by: Heparin Sodium (Porcine) (Heparin Sodium) 5,000 units SUBCUT Q12H [facility] Last Admin: 08/13/20 05:00 Dose: 5,000 units Documented by: Hydrochlorothiazide (Hydrochlorothiazide) 12.5 mg PO DAILY [facility] Last Admin: 08/13/20 09:07 Dose: 12.5 mg Documented by: Levofloxacin (Levaquin) 750 mg PO Q24H [facility] Last Admin: 08/12/20 16:00 Dose: 750 mg Documented by: Lidocaine (Lidoderm 5%) 700 mg TRDERM Q24H [facility] Last Admin: 08/12/20 15:59 Dose: 700 mg Documented by: Lisinopril (Prinivil) 20 mg PO DAILY [facility] Metoprolol Tartrate (Lopressor) 25 mg PO BID [facility] Last Admin: 08/13/20 09:08 Dose: 25 mg Documented by: Miscellaneous Information (Remove Patch) 1 ea TRDERM DAILY@0400 [facility] Last Admin: 08/13/20 04:01 Dose: Not Given Documented by: Morphine Sulfate (Morphine) 2 mg IVPUSH Q4H PRN PRN Reason: Pain Last Admin: 08/12/20 06:04 Dose: 2 mg Documented by: Ondansetron HCl (Zofran) 4 mg IVPUSH Q4H PRN PRN Reason: Nausea/Vomiting Last Admin: 08/07/20 05:13 Dose: 4 mg Documented by: Oxycodone HCl (Oxycodone) 10 mg PO Q4H PRN PRN Reason: Pain Last Admin: 08/13/20 11:22 Dose: 10 mg Documented by: Polyethylene Glycol (Miralax) 17 gm PO BEDTIME PRN PRN Reason: Constipation Senna/Docusate Sodium (Senna Plus) 1 tab PO DAILY [facility] Last Admin: 08/13/20 09:07 Dose: 1 tab Documented by: Discontinued Medications Bisacodyl (Dulcolax) 10 mg RECTAL ONETIME ONE Stop: 08/10/20 17:05 Last Admin: 08/10/20 19:01 Dose: Not Given Documented by: Cyclobenzaprine HCl (Flexeril) 5 mg PO ONETIME ONE Stop: 08/07/20 15:50 Last Admin: 08/07/20 15:59 Dose: 5 mg Documented by: Cyclobenzaprine HCl (Flexeril) 5 mg PO TID PRN PRN Reason: Spasms Last Admin: 08/10/20 12:11 Dose: 5 mg Documented by: Cyclobenzaprine HCl (Flexeril) 5 mg PO ONETIME ONE Stop: 08/10/20 14:48 Last Admin: 08/10/20 14:58 Dose: 5 mg Documented by: Cyclobenzaprine HCl (Flexeril) 10 mg PO TID PRN PRN Reason: Spasms Last Admin: 08/11/20 00:17 Dose: 10 mg Documented by: Docusate Sodium (Colace) 100 mg PO BID [facility] Last Admin: 08/10/20 20:09 Dose: 100 mg Documented by: Furosemide (Lasix) 40 mg IVPUSH NOW ONE Stop: 08/07/20 10:04 Last Admin: 08/07/20 11:04 Dose: 40 mg Documented by: Furosemide (Lasix) 20 mg IVPUSH NOW ONE Stop: 08/07/20 13:56 Last Admin: 08/07/20 14:40 Dose: 20 mg Documented by: Furosemide (Lasix) 40 mg IVPUSH DAILY [facility] Last Admin: 08/08/20 13:33 Dose: 40 mg Documented by: Sodium Chloride (Normal Saline) 1,000 mls @ 999 mls/hr IV ASDIRECTED [facility] Last Admin: 08/07/20 02:07 Dose: 999 mls/hr Documented by: Sodium Chloride (Normal Saline) 1,000 mls @ 150 mls/hr IV ASDIRECTED [facility] Last Admin: 08/07/20 05:13 Dose: 150 mls/hr Documented by: Levofloxacin/Dextrose 750 mg/ (Premix) 150 mls @ 100 mls/hr IV Q24H [facility] Last Admin: 08/10/20 13:33 Dose: 100 mls/hr Documented by: Sodium Chloride (Normal Saline) 1,000 mls @ 100 mls/hr IV ASDIRECTED [facility] Last Admin: 08/11/20 09:33 Dose: 150 mls/hr Documented by: Potassium Chloride 20 meq/ (Premix) 50 mls @ 25 mls/hr IV ONETIME ONE Stop: 08/08/20 23:28 Last Admin: 08/08/20 21:55 Dose: 25 mls/hr Documented by: Magnesium Sulfate (Magnesium Sulfate In Water Premix) 2 gm in 50 mls @ 50 mls/hr IV ONETIME ONE Stop: 08/09/20 10:13 Last Admin: 08/09/20 09:58 Dose: 50 mls/hr Documented by: Potassium Chloride 40 meq/ (Premix) 100 mls @ 25 mls/hr IV ONETIME ONE Stop: 08/10/20 01:57 Last Admin: 08/09/20 22:11 Dose: 25 mls/hr Documented by: Sodium Chloride (Normal Saline) 1,000 mls @ 100 mls/hr IV Q10H [facility] Last Admin: 08/12/20 17:24 Dose: Not Given Documented by: Levofloxacin (Levaquin) 750 mg PO Q24H [facility] Last Admin: 08/11/20 17:23 Dose: 750 mg Documented by: Lisinopril (Prinivil) 10 mg PO DAILY [facility] Last Admin: 08/13/20 09:08 Dose: 10 mg Documented by: Metoclopramide HCl (Reglan) 5 mg IVPUSH ONETIME ONE Stop: 08/07/20 00:57 Last Admin: 08/07/20 01:01 Dose: 5 mg Documented by: Morphine Sulfate (Morphine) 4 mg IVPUSH ONETIME ONE Stop: 08/07/20 00:12 Last Admin: 08/07/20 00:58 Dose: 4 mg Documented by: Morphine Sulfate (Morphine) Confirm Administered Dose 4 mg .ROUTE .STK-MED ONE Stop: 08/07/20 00:12 Last Admin: 08/07/20 01:03 Dose: Not Given Documented by: Morphine Sulfate (Morphine) 4 mg IVPUSH ONETIME ONE Stop: 08/07/20 00:13 Last Admin: 08/07/20 01:05 Dose: 4 mg Documented by: Morphine Sulfate (Morphine) 4 mg IVPUSH ONETIME ONE Stop: 08/07/20 01:58 Last Admin: 08/07/20 02:07 Dose: 4 mg Documented by: Morphine Sulfate (Morphine) Confirm Administered Dose 4 mg .ROUTE .STK-MED ONE Stop: 08/07/20 02:04 Last Admin: 08/07/20 02:21 Dose: Not Given Documented by: Ondansetron HCl (Zofran) 4 mg IVPUSH ONETIME ONE Stop: 08/07/20 00:16 Last Admin: 08/07/20 00:58 Dose: 4 mg Documented by: Oxycodone HCl (Oxycodone) 10 mg PO QID PRN PRN Reason: Pain Last Admin: 08/11/20 04:10 Dose: 10 mg Documented by: Polyethylene Glycol (Miralax) 17 gm PO BID ONE Stop: 08/12/20 09:27 Last Admin: 08/12/20 09:50 Dose: 17 gm Documented by: Potassium Chloride (Klor-Con M20) 40 meq PO ONETIME ONE Stop: 08/07/20 20:00 Last Admin: 08/07/20 20:23 Dose: 40 meq Documented by: Potassium Chloride (Klor-Con M20) 40 meq PO ONETIME ONE Stop: 08/08/20 17:32 Last Admin: 08/08/20 19:47 Dose: 40 meq Documented by:
[2020-08-13] MEDS: Levofloxacin 250 MG Tab PO SCH (13:34)
[2020-08-13] MEDS ORDERED: Polyethylene Glycol 3350 Powder 17 GM Packet PO PRN (20:00)
[2020-08-14] MEDS ORDERED: Lisinopril 10 MG Tab PO SCH (09:00)
--- NOTE | 2020-08-14 11:38 | ECHO ---
EXAM DATE: 08/07/20 PATIENT'S AGE: 79 The ECHO report has been scanned into [facility] and can be seen in this patient's EMR (Electronic Medical Record) under the REPORTS section. The report has also been scanned into PACS. [email or web address]
== END 2020-08-13 13:50 | disposition home or self-care (01) | DRG 640 ==
LOC: MW.ED 00:05 → MW.MS 01:41 → MW.ICU 13:50 → MW.MS 08-11 04:09
PROVIDERS: ADMIT Student in an Organized Health Care Education/Training Program; ATTEND Student in an Organized Health Care Education/Training Program
PROC: 30233N1 Transfusion of Nonautologous Red Blood Cells into Peripheral Vein, Percutaneous Approach (ICD-10-PCS; principal; 2020-08-11)
DX: E87.1 Hypo-osmolality and hyponatremia (principal); J18.9 Pneumonia, unspecified organism; J44.0 Chronic obstructive pulmonary disease with (acute) lower respiratory infection; J30.9 Allergic rhinitis, unspecified; T81.31XA Disruption of external operation (surgical) wound, not elsewhere classified, initial encounter; J44.9 Chronic obstructive pulmonary disease, unspecified; Z98.890 Other specified postprocedural states; I25.10 Atherosclerotic heart disease of native coronary artery without angina pectoris; M25.552 Pain in left hip; I10 Essential (primary) hypertension; K59.00 Constipation, unspecified; Y83.8 Other surgical procedures as the cause of abnormal reaction of the patient, or of later complication, without mention of misadventure at the time of the procedure; Y92.89 Other specified places as the place of occurrence of the external cause; Z79.899 Other long term (current) drug therapy; Z79.82 Long term (current) use of aspirin; Z96.642 Presence of left artificial hip joint; Z20.828 Contact with and (suspected) exposure to other viral communicable diseases; W06.XXXA Fall from bed, initial encounter
CPT/HCPCS: 36415; 70450; 71045; 73090; 73502; 80053; 84484; 85025; 93005; 96374; 96375; 96376; 99285; J2270 ×2; J2405; J2765; U0002; 36430; 51702; 71250; 71250-26; 72070; 72070-26; 72100; 72100-26; 80048; 81001; 82570; 83735; 83880; 84100; 84300; 85014; 85018; 86850; 86900; 86901; 86920; 86921; 86922; 93010; 93306; 97110-GP; 97161-GP; 97530-GP; 99222; 99232; 99238; 99283; A9270-GY; J1644; J1940; J1956; J3475; J3480; J7030; P9016

== ENCOUNTER 2021-02-03 11:01 | Emergency (ER) | payer MEDICARE, BC ==
--- NOTE | 2021-02-03 11:16 | EDM.PDOC ---
ED HPI GENERAL MEDICAL PROBLEM - General Chief Complaint: Upper Extremity Injury/Pain Stated Complaint: L ARM PAIN AND CHILLS Time Seen by Provider: 02/03/21 11:14 Source of Information: Reports: Patient History Limitations: Reports: No Limitations - History of Present Illness INITIAL COMMENTS - FREE TEXT/NARRATIVE: 80-year-old male past medical history COPD, hypertension presents for left arm pain x1 month. Patient states that he first noted symptoms after second dose of Pfizer Covid vaccination. His pain radiates from his elbow to shoulder on the left side. It is of waxing and waning intensity. He denies any associated chest pain, shortness of breath, cough, fevers, abdominal pain, nausea, vomiting, dysuria, hematuria. He notes that last night he got chills. He describes this as shaking and feeling cold. He states he did not have a fever. Left Arm Pain Score (Numeric/FACES): 8 - Related Data Allergies Allergy/AdvReac Type Severity Reaction Status Date / Time No Known Allergies Allergy Verified 08/07/20 09:49 Home Meds: Home Meds Clopidogrel [Plavix] 75 mg PO DAILY 02/03/21 [History] Furosemide 40 mg PO DAILY 02/03/21 [History] Metoprolol Tartrate 25 mg PO DAILY 02/03/21 [History] atorvaSTATin [Lipitor] 40 mg PO DAILY 02/03/21 [History] hydroCHLOROthiazide [Hydrochlorothiazide] 12.5 mg PO DAILY 02/03/21 [History] lisinopriL [Lisinopril] 10 mg PO DAILY 02/03/21 [History] oxyCODONE 10 mg PO ASDIRECTED 02/03/21 [History] Past Medical History HEENT History: Reports: Allergic Rhinitis Cardiovascular History: Reports: CAD, Hypertension Respiratory History: Reports: COPD Gastrointestinal History: Reports: None Genitourinary History: Reports: None Musculoskeletal History: Reports: None Neurological History: Reports: None Psychiatric History: Reports: None Endocrine/Metabolic History: Reports: None Hematologic History: Reports: Other (See Below) Other Hematologic History: Easy bruising/bleeding Immunologic History: Reports: None Oncologic (Cancer) History: Reports: None Dermatologic History: Reports: None - Infectious Disease History Infectious Disease History: Reports: Chicken Pox - Past Surgical History HEENT Surgical History: Reports: None Neurological Surgical History: Reports: Laminectomy Musculoskeletal Surgical History: Reports: Other (See Below) Other Musculoskeletal Surgeries/Procedures:: Back surgery, both hips replaced, 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 ED EXAM, GENERAL - Physical Exam Exam: See Below Exam Limited By: No Limitations General Appearance: Alert, WD/WN, No Apparent Distress Throat/Mouth: Normal Voice, No Airway Compromise Head: Atraumatic, Normocephalic Neck: Normal Inspection Respiratory/Chest: No Respiratory Distress, Lungs Clear, Normal Breath Sounds, No Accessory Muscle Use Cardiovascular: Normal Peripheral Pulses, Regular Rate, Rhythm Back Exam: Normal Inspection Extremities: Normal Inspection Neurological: Alert Psychiatric: Normal Affect, Normal Mood Skin Exam: Warm, Dry, Intact, Normal Color #1 Interpretation EKG Date: 02/03/21 Time: 11:24 Rhythm: NSR Rate (Beats/Min): 84 [place]: Normal P-Wave: Present QRS: Normal ST-T: Normal QT: Normal IL/PQ Interval: 150 EKG Interpretation Comments: normal EKG Course - Vital Signs Last Recorded V/S: Last Vital Signs Temp 97.6 F 02/03/21 11:18 Pulse 92 02/03/21 11:18 Resp 16 02/03/21 11:18 BP 133/70 02/03/21 11:18 Pulse Ox 94 L 02/03/21 11:18 - Orders/Labs/Meds Orders: Active Orders 24 hr Category Date Time Status EKG Documentation Completion [RC] STAT Care 02/03/21 11:34 Active UA W/JOSE RFLX IF INDICATED [URIN] Stat Lab 02/03/21 11:35 Ordered Sodium Chloride 0.9% [Saline Flush] Med 02/03/21 11:34 Active 10 ml FLUSH ASDIRECTED PRN Sodium Chloride 0.9% [Saline Flush] Med 02/03/21 11:34 Active 2.5 ml FLUSH ASDIRECTED PRN Saline Lock Insert [OM.PC] Stat Oth 02/03/21 11:34 Ordered Medication Orders Sodium Chloride (Sodium Chloride 0.9% 10 Ml Syringe) 10 ml FLUSH ASDIRECTED PRN PRN Reason: Keep Vein Open Last Admin: 02/03/21 11:50 Dose: 10 ml Documented by: [id number] Sodium Chloride (Sodium Chloride 0.9% 2.5 Ml Syringe) 2.5 ml FLUSH ASDIRECTED PRN PRN Reason: Keep Vein Open Last Admin: 02/03/21 11:50 Dose: 2.5 ml Documented by: [id number] Labs: Laboratory Tests 02/03/21 02/03/21 02/03/21 Range/Units 11:52 11:52 11:52 WBC 13.48 H (4.0-11.0) K/uL RBC 4.06 L (4.50-5.90) M/uL Hgb 12.6 L (13.0-17.0) g/dL Hct 38.2 (38.0-50.0) % MCV 94.1 (80.0-98.0) fL MCH 31.0 (27.0-32.0) pg MCHC 33.0 (31.0-37.0) g/dL RDW Std Deviation 51.9 (28.0-62.0) fl RDW Coeff of Kavitha 15 (11.0-15.0) % Plt Count 194 (150-400) K/uL MPV 9.60 (7.40-12.00) fL Neut % (Auto) 85.1 H (48.0-80.0) % Lymph % (Auto) 6.5 L (16.0-40.0) % [place] % (Auto) 7.7 (0.0-15.0) % Eos % (Auto) 0.4 (0.0-7.0) % Baso % (Auto) 0.3 (0.0-1.5) % Neut # (Auto) 11.5 H (1.4-5.7) K/uL Lymph # (Auto) 0.9 (0.6-2.4) K/uL [place] # (Auto) 1.0 H (0.0-0.8) K/uL Eos # (Auto) 0.1 (0.0-0.7) K/uL Baso # (Auto) 0.0 (0.0-0.1) K/uL Nucleated RBC % 0.0 /100WBC Nucleated RBCs # 0 K/uL D-Dimer, Quantitative 1.66 H (0.0-0.50) mg/L FEU Sodium (136-148) mmol/L Potassium (3.5-5.1) mmol/L Chloride (98-107) mmol/L Carbon Dioxide (21.0-32.0) mmol/L BUN (7.0-18.0) mg/dL Creatinine (0.8-1.3) mg/dL Est Cr Clr Drug Dosing mL/min Estimated GFR (MDRD) ml/min Glucose (74-106) mg/dL Lactic Acid 1.1 (0.4-2.0) mmol/L Calcium (8.5-10.1) mg/dL Total Bilirubin (0.2-1.0) mg/dL AST (15-37) IU/L ALT (14-63) IU/L Alkaline Phosphatase (46-116) U/L Troponin I (0.000-0.056) ng/mL C-Reactive Protein (0.00-0.90) mg/dL Total Protein (6.4-8.2) g/dL Albumin (3.4-5.0) g/dL Globulin (2.6-4.0) g/dL Albumin/Globulin Ratio (0.9-1.6) 02/03/21 Range/Units 11:52 WBC (4.0-11.0) K/uL RBC (4.50-5.90) M/uL Hgb (13.0-17.0) g/dL Hct (38.0-50.0) % MCV (80.0-98.0) fL MCH (27.0-32.0) pg MCHC (31.0-37.0) g/dL RDW Std Deviation (28.0-62.0) fl RDW Coeff of Kavitha (11.0-15.0) % Plt Count (150-400) K/uL MPV (7.40-12.00) fL Neut % (Auto) (48.0-80.0) % Lymph % (Auto) (16.0-40.0) % [place] % (Auto) (0.0-15.0) % Eos % (Auto) (0.0-7.0) % Baso % (Auto) (0.0-1.5) % Neut # (Auto) (1.4-5.7) K/uL Lymph # (Auto) (0.6-2.4) K/uL [place] # (Auto) (0.0-0.8) K/uL Eos # (Auto) (0.0-0.7) K/uL Baso # (Auto) (0.0-0.1) K/uL Nucleated RBC % /100WBC Nucleated RBCs # K/uL D-Dimer, Quantitative (0.0-0.50) mg/L FEU Sodium 133 L (136-148) mmol/L Potassium 3.7 (3.5-5.1) mmol/L Chloride 99 (98-107) mmol/L Carbon Dioxide 24.8 (21.0-32.0) mmol/L BUN 24 H (7.0-18.0) mg/dL Creatinine 1.7 H (0.8-1.3) mg/dL Est Cr Clr Drug Dosing 39.82 mL/min Estimated GFR (MDRD) 39.1 ml/min Glucose 130 H (74-106) mg/dL Lactic Acid (0.4-2.0) mmol/L Calcium 8.6 (8.5-10.1) mg/dL Total Bilirubin 0.6 (0.2-1.0) mg/dL AST 23 (15-37) IU/L ALT 22 (14-63) IU/L Alkaline Phosphatase 117 H (46-116) U/L Troponin I < 0.050 (0.000-0.056) ng/mL C-Reactive Protein 18.00 H (0.00-0.90) mg/dL Total Protein 7.5 (6.4-8.2) g/dL Albumin 3.2 L (3.4-5.0) g/dL Globulin 4.3 H (2.6-4.0) g/dL Albumin/Globulin Ratio 0.7 L (0.9-1.6) Meds: Medications Generic Name Dose Route Start Last Admin Trade Name Freq PRN Reason Stop Dose Admin Sodium Chloride 10 ml 02/03/21 11:34 02/03/21 11:50 Sodium Chloride 0.9% 10 Ml Syringe FLUSH 10 ml ASDIRECTED PRN Administration Keep Vein Open Sodium Chloride 2.5 ml 02/03/21 11:34 02/03/21 11:50 Sodium Chloride 0.9% 2.5 Ml Syringe FLUSH 2.5 ml ASDIRECTED PRN Administration Keep Vein Open Discontinued Medications Generic Name Dose Route Start Last Admin Trade Name [place] PRN Reason Stop Dose Admin Acetaminophen 1,000 mg 02/03/21 11:34 02/03/21 11:49 Acetaminophen 500 Mg Tab PO 02/03/21 11:35 1,000 mg ONETIME ONE Administration - Re-Assessments/Exams Free Text/Narrative Re-Assessment/Exam: 02/03/21 11:38 Patient with normal vital signs right now. Will get labs including chest x-ray, urinalysis to rule out signs of infection considering the chills last night. Will get a D-dimer to screen for DVT of the left upper extremity. There is nothing on physical exam that is abnormal. 02/03/21 12:46 Labs remarkable for elevated D-dimer, ultrasound of the left upper extremity ordered. Patient also with leukocytosis to 13 with chest x-ray findings remarkable for developing pneumonia. Patient without symptoms of pneumonia but will treat with antibiotics. 02/03/21 14:24 DVT scan is negative. Had a long discussion with patient and his regarding the lab abnormalities. I discussed that we will treat with antibiotics by mouth for the pneumonia but I recommend follow-up with her primary care physician within the next week to talk about the left arm pain as well as consider repeating labs to ensure the ARIANNE is resolving. Departure - Departure Time of Disposition: 14:25 Disposition: Home, Self-Care 01 Condition: Good Clinical Impression: Pneumonia Qualifiers: Pneumonia type: due to unspecified organism Laterality: left Lung location: unspecified part of lung Qualified Code(s): J18.9 - Pneumonia, unspecified organism - Discharge Information Instructions: Community-Acquired Pneumonia, Adult, [id number] Referrals: Alessandro Montalvo MD [Primary Care Provider] - Forms: ED Department Discharge Additional Instructions: Your labs and imaging were remarkable for a slightly elevated white blood cell count, and elevated D-dimer test, and an elevated CRP. These can all be signs of infection. An ultrasound was performed of your left upper extremity to rule out a blood clot and it was negative. I am uncertain what is causing your arm pain and I recommend following up with your primary care physician. You did have evidence of a pneumonia on your chest x-ray. Your sent antibiotics for this infection. You also had evidence of mildly impaired kidney function. Please drink plenty of fluids and follow-up with your primary care physician for repeat labs to ensure this is resolving. If you have any difficulty breathing, chest pain, or vomiting and are unable to keep down your medicines then you should come back to the emergency department. The following information is given to patients seen in the emergency department who are being discharged to home. This information is to outline your options for follow-up care. We provide all patients seen in our emergency department with a follow-up referral. The need for follow-up, as well as the timing and circumstances, are variable depending upon the specifics of your emergency department visit. If you don't have a primary care physician on staff, we will provide you with a referral. We always advise you to contact your personal physician following an e mergency department visit to inform them of the circumstance of the visit and for follow-up with them and/or the need for any referrals to a consulting specialist. The emergency department will also refer you to a specialist when appropriate. This referral assures that you have the opportunity for follow-up care with a specialist. All of these measure are taken in an effort to provide you with op timal care, which includes your follow-up. Under all circumstances we always encourage you to contact your private physician who remains a resource for coordinating your care. When calling for follow-up care, please make the office aware that this follow-up is from your recent emergency room visit. If for any reason you are refused follow-up, please contact the [facility] Department at and asked to speak to the emergency department charge nurse. Please follow up with your primary care physician. If you do not have a primary care physician, see below: [facility] [address] [place] [id number] [facility] [address] [place] [id number] [facility] [address] [place] [id number] Sepsis Event Note (ED) - Focused Exam Vital Signs: Vital Signs Temp Pulse Resp BP Pulse Ox 02/03/21 11:18 97.6 F 92 16 133/70 94 L - My Orders Last 24 Hours: My Active Orders 02/03/21 11:34 EKG Documentation Completion [RC] STAT Sodium Chloride 0.9% [Saline Flush] 10 ml FLUSH ASDIRECTED PRN Sodium Chloride 0.9% [Saline Flush] 2.5 ml FLUSH ASDIRECTED PRN Saline Lock Insert [OM.PC] Stat 02/03/21 11:35 UA W/JOSE RFLX IF INDICATED [URIN] Stat - Assessment/Plan Last 24 Hours: My Active Orders 02/03/21 11:34 EKG Documentation Completion [RC] STAT Sodium Chloride 0.9% [Saline Flush] 10 ml FLUSH ASDIRECTED PRN Sodium Chloride 0.9% [Saline Flush] 2.5 ml FLUSH ASDIRECTED PRN Saline Lock Insert [OM.PC] Stat 02/03/21 11:35 UA W/JOSE RFLX IF INDICATED [URIN] Stat
[2021-02-03] MEDS ORDERED: Sodium Chloride 0.9% 10 ML Syringe FLUSH PRN (11:34)
[2021-02-03] MEDS ORDERED: Sodium Chloride 0.9% 2.5 ML Syringe FLUSH PRN (11:34)
[2021-02-03] MEDS ORDERED: Acetaminophen 500 MG Tab PO ONE (11:34)
--- NOTE | 2021-02-03 12:32 | CR ---
Indication: Chills, arm pain Comparison: Single-view chest summer Technique: Single AP view chest Findings: There is hyperinflation and chronic interstitial change. There are increased airspace opacities within the lung bases likely representing developing infiltrates. The cardiomediastinal silhouette is within normal limits. The bony thorax is grossly intact. Impression: Hyperinflation and chronic interstitial changes with airspace opacities in the left greater than right lung bases likely representing developing infiltrates. Dictated by Froilan Abdi MD @ 02/03/2021 12:31:[address] Froilan Abdi @ Feb 03 2021 12:31PM
[2021-02-03 12:41] LABS: BLOOD UREA NITROGEN,BUN 24 mg/dL (7.0-18.0); CARBON DIOXIDE,CO2 24.8 mmol/L (21.0-32.0); CHLORIDE,CL 99 mmol/L (98-107); GLUCOSE RANDOM 130 mg/dL (74-106); POTASSIUM,K 3.7 mmol/L (3.5-5.1); SODIUM,NA 133 mmol/L (136-148)
--- NOTE | 2021-02-03 14:10 | US ---
INDICATION: Left arm pain. No swelling. Rule out DVT. TECHNIQUE: Grayscale two-dimensional ultrasound without and with compression as well as color-flow and spectral Doppler of the left upper extremity veins. COMPARISON: None. FINDINGS: Normal flow is demonstrated in the subclavian vein. Normal compressibility of and flow within the internal jugular, axillary, brachial, radial, ulnar, basilic and cephalic veins is demonstrated. No thrombus is evident. IMPRESSION: Negative left upper extremity venous Doppler study. Dictated by Andrade Brandon MD @ 02/03/2021 2:07:[address] Andrade Brandon @ Feb 03 2021 2:07PM
[2021-02-03 14:37] VITALS: BP 146/78; PULSE 75
== END 2021-02-03 14:37 | disposition home or self-care (01) ==
LOC: MW.ED 11:01
DX: J18.9 Pneumonia, unspecified organism (principal); J44.9 Chronic obstructive pulmonary disease, unspecified; I10 Essential (primary) hypertension; I25.10 Atherosclerotic heart disease of native coronary artery without angina pectoris; Z79.899 Other long term (current) drug therapy; Z79.02 Long term (current) use of antithrombotics/antiplatelets
CPT/HCPCS: 36415; 71045; 80053; 83605; 84484; 85025; 85379; 86140; 93005; 93971; 99284; A9270; 93010; 99283

== ENCOUNTER 2023-06-10 11:22 | Emergency (ER) | payer MEDICARE, BC ==
[2023-06-10] MEDS ORDERED: Sodium Chloride 0.9% 10 ML Syringe FLUSH PRN (11:27)
[2023-06-10] MEDS ORDERED: Sodium Chloride 0.9% 2.5 ML Syringe FLUSH PRN (11:27)
[2023-06-10] MEDS ORDERED: Sodium Chloride 0.9% 500 ML IV SCH (11:45)
[2023-06-10 11:50] LABS: HEMATOCRIT 21.7 % (38.0-50.0); MEAN CORPUSCULAR HEMOGLOBIN 31.3 pg (27.0-32.0); MEAN CORPUSCULAR HGB CONC 32.3 g/dL (31.0-37.0); MEAN CORPUSCULAR VOLUME 96.9 fL (80.0-98.0); PLATELET COUNT,PLT 449 K/uL (150-400); RED BLOOD CELL COUNT 2.24 M/uL (4.50-5.90); WHITE BLOOD CELL COUNT,WBC 30.65 K/uL (4.0-11.0)
[2023-06-10 12:06] LABS: INR 1.07 (0.86-1.11)
[2023-06-10 12:35] LABS: ALBUMIN 2.7 g/dL (3.4-5.0); CHLORIDE,CL 92 mmol/L (98-107); CREATININE 1.9 mg/dL (0.8-1.3); SODIUM,NA 127 mmol/L (136-148)
[2023-06-10 12:42] LABS: LYMPHOCYTES ABSOLUTE MAN 2.1 (0.6-2.4); LYMPHOCYTES PERCENT MAN 7 % (16.0-40.0); MONOCYTES ABSOLUTE MAN 0.9 (0.0-0.8); MONOCYTES PERCENT MAN 3 % (0.0-15.0); SEG NEUTROPHILS ABSOLUTE MAN 27.6 (1.4-5.7); SEG NEUTROPHILS PERCENT MAN 90 % (48.0-80.0)
[2023-06-10] MEDS ORDERED: Naloxone 0.4 MG/ML SDV IVPUSH PRN ×2 (12:43→14:16)
[2023-06-10] MEDS ORDERED: Morphine 2 MG/ML SYRINGE IVPUSH ONE (12:43)
[2023-06-10 12:49] LABS: A/G RATIO 0.9 (0.9-1.6); ALANINE AMINOTRANSFERASE,ALT 19 IU/L (14-63); ALKALINE PHOSPHATASE 91 U/L (46-116); ASPARTATE AMNIOTRANSFERASE,AST 21 IU/L (15-37); BILIRUBIN TOTAL 0.4 mg/dL (0.2-1.0); BLOOD UREA NITROGEN,BUN 34 mg/dL (7.0-18.0); CALCIUM 8.3 mg/dL (8.5-10.1); CARBON DIOXIDE,CO2 17.6 mmol/L (21.0-32.0); GLUCOSE RANDOM 248 mg/dL (74-106); POTASSIUM,K 3.2 mmol/L (3.5-5.1); PROTEIN TOTAL,TP 5.8 g/dL (6.4-8.2)
[2023-06-10 12:55] LABS: ESTIMATED GFR 35 mL/min (>60)
[2023-06-10] MEDS ORDERED: Cefepime 2 GM Vial IVPUSH ONE (13:22)
[2023-06-10] MEDS ORDERED: metroNIDAZOLE/Normal Saline 500 MG in Premix Bag 1 BAG IV ONE (13:23)
[2023-06-10] MEDS ORDERED: Cefepime 2 GM in Sodium Chloride 0.9% 50 ML IV ONE (13:30)
[2023-06-10 13:36] LABS: APPEARANCE,URINE CLEAR; BILIRUBIN,URINE NEGATIVE (NEGATIVE); COLOR,URINE YELLOW; GLUCOSE,URINE NEGATIVE (NEGATIVE); KETONES,URINE NEGATIVE (NEGATIVE); LEUKOCYTE ESTERASE,URINE TRACE (NEGATIVE); NITRITE,URINE NEGATIVE (NEGATIVE); OCCULT BLOOD,URINE TRACE-INTACT (NEGATIVE); PH,URINE 6.5 (5.0-8.0); PROTEIN,URINE NEGATIVE (NEGATIVE); UROBILINOGEN,URINE 0.2 EU/dL (<2.0)
[2023-06-10] MEDS ORDERED: VANCOmycin 1.25 GM/250 ML 1.25 GM in Premix Bag 1 BAG IV ONE (13:45)
[2023-06-10 14:04] LABS: EPITHELIAL CELLS,URINE RARE (NONE-FEW); RBC,URINE 0-2 (0-2/HPF); WBC,URINE 0-2 (0-5/HPF)
[2023-06-10 14:05] LABS: BACTERIA,URINE NOT SEEN (NEGATIVE); HYALINE CASTS,URINE 0-2 (0-2/LPF)
[2023-06-10] MEDS ORDERED: Sodium Chloride 0.9% 1,000 ML IV ONE (14:07)
[2023-06-10] MEDS ORDERED: HYDROmorphone 1 MG/ML Syringe IVPUSH ONE (14:16)
[2023-06-10 14:34] LABS: CORONAVIRUS COVID-19 NAA NEGATIVE (NEGATIVE); INFLUENZA A NAA NEGATIVE (NEGATIVE); INFLUENZA B NAA NEGATIVE (NEGATIVE); RESPIRATORY SYNCYTIAL VIR NAA NEGATIVE (NEGATIVE)
[2023-06-10] MEDS: Morphine 4 MG/ML Syringe IVPUSH PRN ×2 (15:05→16:25)
[2023-06-10 18:53] VITALS: BP 130/59; PULSE 86
== END 2023-06-10 16:55 ==
LOC: MW.ED 11:22
DX: R57.1 Hypovolemic shock (principal); D64.9 Anemia, unspecified; I70.222 Atherosclerosis of native arteries of extremities with rest pain, left leg; I70.221 Atherosclerosis of native arteries of extremities with rest pain, right leg; I25.10 Atherosclerotic heart disease of native coronary artery without angina pectoris; I10 Essential (primary) hypertension; J44.9 Chronic obstructive pulmonary disease, unspecified; Z79.899 Other long term (current) drug therapy; Z20.822 Contact with and (suspected) exposure to COVID-19
CPT/HCPCS: 0241U; 36415; 36430; 71045; 72170; 73620; 80053; 81001; 83605; 85025; 85610; 86850; 86900; 86901; 86920; 87040; 93005; 93926; 93971; 96365; 96367; 96368; 96375; 96376; 99285; J0692; J1170; J2270; J3370; J3490; J7030; J7040; P9016; 93010; 99284

== ENCOUNTER 2023-12-08 16:58 | Inpatient (IN) | payer MEDICARE, BC ==
[2023-12-08] MEDS: Heparin Sodium 5,000 Units/ML Vial IVPUSH STA (17:54)
[2023-12-08] MEDS: Heparin Sodium/0.45% NaCl 500 ML IV SCH (17:54)
[2023-12-08 18:19] LABS: BASOPHILS ABSOLUTE AUTO 0.04 K/uL (0.00-0.20); BASOPHILS PERCENT AUTO 0.2 % (0.0-1.0); EOSINOPHILS ABSOLUTE AUTO 0.03 K/uL (0.00-0.45); EOSINOPHILS PERCENT AUTO 0.2 % (0.0-6.0); HEMOGLOBIN 11.4 g/dL (14.0-18.0); IMMATURE GRAN ABSOLUTE AUTO 0.25 K/uL (0.00-0.05); IMMATURE GRAN PERCENT AUTO 1.3 % (0.0-0.4); LYMPHOCYTES ABSOLUTE AUTO 0.96 K/uL (1.00-4.80); LYMPHOCYTES PERCENT AUTO 5.1 % (24.0-44.0); MEAN CORPUSCULAR HEMOGLOBIN 30.9 pg (28.0-32.0); MEAN CORPUSCULAR HGB CONC 34.5 g/dL (32.0-36.0); MEAN CORPUSCULAR VOLUME 89.4 fL (83.0-99.0); MEAN PLATELET VOLUME 9.2 fL (9.4-12.4); MONOCYTES ABSOLUTE AUTO 1.15 K/uL (0.00-0.80); MONOCYTES PERCENT AUTO 6.1 % (0.0-8.0); NEUTROPHILS PERCENT AUTO 87.1 % (41.0-71.0); PLATELET COUNT,PLT 248 K/uL (150-400); RED BLOOD CELL COUNT 3.69 M/uL (4.52-5.90); WHITE BLOOD CELL COUNT,WBC 18.73 K/uL (3.9-11.3)
[2023-12-08 18:30] LABS: A/G RATIO 0.6 (0.9-1.6); ALBUMIN 2.9 g/dL (3.4-5.0); BILIRUBIN TOTAL 0.8 mg/dL (0.2-1.0); CALCIUM 9.1 mg/dL (8.5-10.1); CARBON DIOXIDE,CO2 23.1 mmol/L (21.0-32.0); CREATININE 1.4 mg/dL (0.8-1.3); EST CRCL DRUG DOSING (CG) 40.34 mL/min; POTASSIUM,K 3.7 mmol/L (3.5-5.1); PROTEIN TOTAL,TP 7.4 g/dL (6.4-8.2)
[2023-12-08] MEDS: Iopamidol 755 MG/ML 500 ML Multipack Bottle IVPUSH STA (18:46)
[2023-12-08 18:52] LABS: INR 1.21 (0.86-1.11)
[2023-12-08] MEDS: cefTRIAXone 2 GM in Sodium Chloride 0.9% 50 ML IV STA (18:59)
[2023-12-08 20:05] LABS: LACTIC ACID 1.7 mmol/L (0.4-2.0)
[2023-12-08] MEDS: Morphine 4 MG/ML Syringe IVPUSH ONE (20:28)
[2023-12-08] MEDS: Morphine 2 MG/ML SYRINGE IVPUSH PRN (23:29)
[2023-12-08] MEDS: atorvaSTATin 40 MG Tab PO SCH (23:35)
[2023-12-08] MEDS: VANCOmycin 1.5 GM/300 ML 300 ML IV ONE (23:37)
[2023-12-09] MEDS: oxyCODONE 5 MG Tab PO PRN ×2 (02:43→18:03)
[2023-12-09 05:50] LABS: BASOPHILS ABSOLUTE AUTO 0.05 K/uL (0.00-0.20); BASOPHILS PERCENT AUTO 0.3 % (0.0-1.0); EOSINOPHILS ABSOLUTE AUTO 0.01 K/uL (0.00-0.45); EOSINOPHILS PERCENT AUTO 0.1 % (0.0-6.0); HEMATOCRIT 29.1 % (42.0-52.0); HEMOGLOBIN 9.9 g/dL (14.0-18.0); IMMATURE GRAN ABSOLUTE AUTO 0.17 K/uL (0.00-0.05); IMMATURE GRAN PERCENT AUTO 1.1 % (0.0-0.4); LYMPHOCYTES ABSOLUTE AUTO 1.01 K/uL (1.00-4.80); LYMPHOCYTES PERCENT AUTO 6.3 % (24.0-44.0); MEAN CORPUSCULAR HEMOGLOBIN 31.1 pg (28.0-32.0); MEAN CORPUSCULAR VOLUME 91.5 fL (83.0-99.0); MEAN PLATELET VOLUME 9.2 fL (9.4-12.4); MONOCYTES ABSOLUTE AUTO 1.18 K/uL (0.00-0.80); MONOCYTES PERCENT AUTO 7.3 % (0.0-8.0); NEUTROPHILS ABSOLUTE AUTO 13.74 K/uL (1.80-7.70); NEUTROPHILS PERCENT AUTO 84.9 % (41.0-71.0); PLATELET COUNT,PLT 222 K/uL (150-400); RED BLOOD CELL COUNT 3.18 M/uL (4.52-5.90); WHITE BLOOD CELL COUNT,WBC 16.16 K/uL (3.9-11.3)
[2023-12-09 06:08] LABS: CALCIUM 8.7 mg/dL (8.5-10.1); CARBON DIOXIDE,CO2 21.1 mmol/L (21.0-32.0); CREATININE 1.3 mg/dL (0.8-1.3); EST CRCL DRUG DOSING (CG) 43.85 mL/min; POTASSIUM,K 3.5 mmol/L (3.5-5.1)
[2023-12-09] MEDS: Clopidogrel 75 MG Tab PO SCH (09:22)
[2023-12-09] MEDS: Hydrochlorothiazide 12.5 MG Cap PO SCH (09:23)
[2023-12-09] MEDS: Lisinopril 10 MG Tab PO SCH (09:24)
[2023-12-09] MEDS: Metoprolol Tartrate 25 MG Tab PO SCH (09:25)
[2023-12-09] MEDS: Heparin Sodium 5,000 Units/ML Vial SUBCUT SCH ×2 (11:07→11:08)
[2023-12-09] MEDS: Calcium Carbonate 500 MG Tab.Chew PO PRN (21:07)
[2023-12-10 05:47] LABS: BASOPHILS ABSOLUTE AUTO 0.05 K/uL (0.00-0.20); BASOPHILS PERCENT AUTO 0.5 % (0.0-1.0); EOSINOPHILS ABSOLUTE AUTO 0.07 K/uL (0.00-0.45); EOSINOPHILS PERCENT AUTO 0.6 % (0.0-6.0); HEMATOCRIT 29.2 % (42.0-52.0); IMMATURE GRAN ABSOLUTE AUTO 0.05 K/uL (0.00-0.05); IMMATURE GRAN PERCENT AUTO 0.5 % (0.0-0.4); LYMPHOCYTES ABSOLUTE AUTO 0.86 K/uL (1.00-4.80); LYMPHOCYTES PERCENT AUTO 7.9 % (24.0-44.0); MEAN CORPUSCULAR HEMOGLOBIN 30.9 pg (28.0-32.0); MEAN CORPUSCULAR HGB CONC 34.2 g/dL (32.0-36.0); MEAN CORPUSCULAR VOLUME 90.1 fL (83.0-99.0); MEAN PLATELET VOLUME 8.9 fL (9.4-12.4); MONOCYTES ABSOLUTE AUTO 0.83 K/uL (0.00-0.80); MONOCYTES PERCENT AUTO 7.7 % (0.0-8.0); NEUTROPHILS ABSOLUTE AUTO 8.96 K/uL (1.80-7.70); NEUTROPHILS PERCENT AUTO 82.8 % (41.0-71.0); PLATELET COUNT,PLT 207 K/uL (150-400); RED BLOOD CELL COUNT 3.24 M/uL (4.52-5.90); WHITE BLOOD CELL COUNT,WBC 10.82 K/uL (3.9-11.3)
[2023-12-10 06:12] LABS: A/G RATIO 0.6 (0.9-1.6); ALBUMIN 2.3 g/dL (3.4-5.0); BILIRUBIN TOTAL 0.5 mg/dL (0.2-1.0); CALCIUM 8.8 mg/dL (8.5-10.1); CARBON DIOXIDE,CO2 21.9 mmol/L (21.0-32.0); POTASSIUM,K 3.3 mmol/L (3.5-5.1); PROTEIN TOTAL,TP 6.4 g/dL (6.4-8.2)
[2023-12-10] MEDS: Potassium Chloride 20 MEQ Tab.ER PO ONE (08:02)
[2023-12-10 12:53] VITALS: BP 148/68; PULSE 78
[2023-12-10] MEDS ORDERED: VANCOmycin 1.25 GM/250 ML 1.25 GM in Premix Bag 1 BAG IV SCH (23:00)
== END 2023-12-10 14:00 | disposition home or self-care (01) | DRG 603 ==
LOC: MW.ED 16:58 → MW.MS 20:37 → OBSVTOIN 12-09 13:52
PROVIDERS: ADMIT Internal Medicine; ATTEND Internal Medicine
DX: L03.115 Cellulitis of right lower limb (principal); E87.1 Hypo-osmolality and hyponatremia; I10 Essential (primary) hypertension; I73.9 Peripheral vascular disease, unspecified; D72.829 Elevated white blood cell count, unspecified; I25.10 Atherosclerotic heart disease of native coronary artery without angina pectoris; J44.9 Chronic obstructive pulmonary disease, unspecified; D64.9 Anemia, unspecified; Z79.02 Long term (current) use of antithrombotics/antiplatelets; Z79.899 Other long term (current) drug therapy; Z98.890 Other specified postprocedural states
CPT/HCPCS: 36415 ×2; 73620; 75635; 80048; 80053; 80202; 83605; 85025 ×2; 85610; 85652; 85730; 87040 ×2; 93926; 93971; 96365; 96366; 96368; 96375; 99284; A9270 ×7; J0696; J1644 ×3; J2270 ×4; J3370; J3490; Q9967; 73718-26-RT; 73718-RT; 86140; 96372; 96376; G0378; J7050

== ENCOUNTER 2023-12-13 15:11 | Emergency (ER) | payer MEDICARE, BC ==
[2023-12-13 16:16] LABS: BASOPHILS PERCENT AUTO 0.8 % (0.0-1.0); EOSINOPHILS ABSOLUTE AUTO 0.17 K/uL (0.00-0.45); EOSINOPHILS PERCENT AUTO 1.3 % (0.0-6.0); HEMATOCRIT 29.9 % (42.0-52.0); HEMOGLOBIN 10.2 g/dL (14.0-18.0); IMMATURE GRAN ABSOLUTE AUTO 0.23 K/uL (0.00-0.05); IMMATURE GRAN PERCENT AUTO 1.8 % (0.0-0.4); LYMPHOCYTES ABSOLUTE AUTO 1.58 K/uL (1.00-4.80); LYMPHOCYTES PERCENT AUTO 12.1 % (24.0-44.0); MEAN CORPUSCULAR HGB CONC 34.1 g/dL (32.0-36.0); MEAN CORPUSCULAR VOLUME 90.9 fL (83.0-99.0); MEAN PLATELET VOLUME 9.2 fL (9.4-12.4); MONOCYTES ABSOLUTE AUTO 0.96 K/uL (0.00-0.80); MONOCYTES PERCENT AUTO 7.4 % (0.0-8.0); NEUTROPHILS ABSOLUTE AUTO 9.99 K/uL (1.80-7.70); NEUTROPHILS PERCENT AUTO 76.6 % (41.0-71.0); PLATELET COUNT,PLT 310 K/uL (150-400); RED BLOOD CELL COUNT 3.29 M/uL (4.52-5.90); WHITE BLOOD CELL COUNT,WBC 13.03 K/uL (3.9-11.3)
[2023-12-13 16:27] LABS: INR 1.08 (0.86-1.11); PTT,PARTIAL THROMBOPLSTIN TIME 31.6 SEC (23.9-30.7)
[2023-12-13 16:40] LABS: A/G RATIO 0.5 (0.9-1.6); ALBUMIN 2.4 g/dL (3.4-5.0); BILIRUBIN TOTAL 0.3 mg/dL (0.2-1.0); C-REACTIVE PROTEIN 13.7 mg/dL (<0.3); CALCIUM 8.4 mg/dL (8.5-10.1); CARBON DIOXIDE,CO2 23.4 mmol/L (21.0-32.0); CREATININE 1.3 mg/dL (0.8-1.3); EST CRCL DRUG DOSING (CG) 39.35 mL/min; POTASSIUM,K 3.7 mmol/L (3.5-5.1); PROTEIN TOTAL,TP 7.4 g/dL (6.4-8.2)
[2023-12-13 16:57] LABS: APPEARANCE,URINE CLEAR; BILIRUBIN,URINE NEGATIVE (NEGATIVE); COLOR,URINE YELLOW; GLUCOSE,URINE NEGATIVE (NEGATIVE); KETONES,URINE NEGATIVE (NEGATIVE); LEUKOCYTE ESTERASE,URINE NEGATIVE (NEGATIVE); NITRITE,URINE NEGATIVE (NEGATIVE); OCCULT BLOOD,URINE NEGATIVE (NEGATIVE); PROTEIN,URINE NEGATIVE (NEGATIVE); UROBILINOGEN,URINE 0.2 EU/dL (<2.0)
[2023-12-13] MEDS: oxyCODONE 5 MG Tab PO STA (17:57)
[2023-12-13] MEDS: Iopamidol 755 MG/ML 500 ML Multipack Bottle IVPUSH STA (19:04)
[2023-12-13 20:02] VITALS: BP 130/65; PULSE 74
== END 2023-12-13 21:00 ==
LOC: MW.ED 15:11
DX: L02.214 Cutaneous abscess of groin (principal); I10 Essential (primary) hypertension; E03.9 Hypothyroidism, unspecified; J44.9 Chronic obstructive pulmonary disease, unspecified; I25.10 Atherosclerotic heart disease of native coronary artery without angina pectoris; E78.00 Pure hypercholesterolemia, unspecified; Z79.02 Long term (current) use of antithrombotics/antiplatelets; Z79.899 Other long term (current) drug therapy; Z75.8 Other problems related to medical facilities and other health care
CPT/HCPCS: 36415; 72193; 80053; 81003; 83605; 85025; 85610; 85652; 85730; 86140; 87040; 87070; 87205; 96365; 99285; A9270; J3370; J7050; Q9967